=== PATIENT | male | born 1985 | race Caucasian/White ===

== ENCOUNTER 2020-07-16 15:01 | Emergency (ER) | payer SELFPAY ==
[2020-07-16 15:11] VITALS: BP 116/72; PULSE 64; RESP 18; TEMP 36.9; O2SAT 97; BMI 28.4
--- NOTE | 2020-07-16 15:28 | XR_ITS ---
WS: [id number] Exam: XR chest 1V portable [id number] Date/Time of Exam: 07/16/2020 3:31 PM Reason For Exam: chest pain Comparison 04/21/2018. Findings: The lungs are clear and fully expanded. Costophrenic angles are sharp. No infiltrates. Bronchovascula r relief appears normal. Cardiac silhouette is unremarkable. Bony elements are intact. XR/XR chest 1V portable [id number] IMPRESSION: Unremarkable chest radiograph.
[2020-07-16 15:56] VITALS: RESP 12
--- NOTE | 2020-07-16 16:00 | PC.PHAR ---
pt states he takes care of his own medications-pt states he takes no rx prescription medications-pt states he only takes ibuprofen prn
[2020-07-16 16:13] VITALS: RESP 12
--- NOTE | 2020-07-16 16:15 | W.ED.CHESTPA ---
HPI - Chest Pain General: Chief Complaint: Chest Pain Stated Complaint: chest pains Time Seen by Provider: 07/16/20 16:04 Source: patient Mode of arrival: ambulatory Limitations: no limitations History of Present Illness: HPI narrative: Patient is a 34-year-old male who presents to ED today with a complaint of left-sided chest pain. Patient tells me he began noticing the chest pain around 7 AM this morning after taking a drink of water while at work. He states chest pain has waxed and waned throughout the day. He states he will have periods where he is pain-free. He states when pain does come on it will last anywhere from a couple of seconds to 5-10 minutes. He feels like pain was worse when he was eating lunch. He was also walking at work and noticed worsening pain then. He currently is not having pain. He denies any radicular symptoms. Denies abdominal pain. No nausea or vomiting. He denies feeling short of breath or difficulty breathing. He has no painful or difficulty swallowing. No recent illness. No fevers. No cardiac or pulmonary history. No previous history of exercise intolerance. MD complaint: chest pain Onset (ago): hour(s) Timing of current episode: episodic Prior episodes: No Onset: during rest Pain location: left chest Pain radiation: none Quality: sharp Relieving factors: nothing Exacerbating factors: other (swallowing, walking) Associated symptoms: Deny abdominal pain, dyspnea, fever(s), nausea, palpitations, syncope or vomiting Treatment prior to arrival: none Risk Factors: Coronary artery disease risk factors: none Thoracic aortic dissection risk factors: none Review of Systems Const: Denies: fever(s), chills, body aches, change in appetite, change in weight, fatigue or malaise Eyes: Denies: change in vision, blurry vision, blind spots, photophobia or seeing flashes ENMT: Denies: throat pain or odynophagia Card: Reports: chest pain; Denies: palpitations, irregular heart rhythm, edema, swelling of feet/ankles, lightheadedness, syncope, pre-syncope, dyspnea on exertion, orthopnea, leg pain with exertion or acrocyanosis Resp: Denies: dyspnea, productive cough or pain on inspiration GI: Denies: abdominal pain, nausea, vomiting, heartburn or diarrhea : Denies: flank pain, difficulty urinating or dysuria Musc: Denies: neck pain, back pain or joint pain Skin/Breast: Denies: rash Neuro: Denies: headache(s), numbness in extremities, weakness in extremities, sensory changes or dizziness Physical Exam Const: COMMON NORMALS: no acute distress, average body habitus, patient oriented x3, no limitations, healthy appearing, alert and well nourished HENMT: COMMON NORMALS: normocephalic and atraumatic HEAD & SCALP: normocephalic and atraumatic Chest: COMMONS NORMALS: normal inspection of the chest and normal palpation of entire chest wall Resp: COMMON NORMALS: normal respiratory effort and clear to auscultation bilaterally AUSCULTATION: clear to auscultation bilaterally Cardio: COMMON NORMALS: regular rate and regular rhythm RATE: regular rate RHYTHM: regular rhythm GI: COMMON NORMALS: Normal to inspection, nondistended, normoactive bowel sounds present, Soft to palpation, non-tender, No hepatosplenomegaly present and no masses PALPATION: Yes Soft to palpation and Yes No hepatosplenomegaly present : COMMON NORMALS: Yes no CVA tenderness BLADDER/KIDNEY EXAM: Yes no CVA tenderness Back/Pelvis: COMMON NORMALS: no CVA tenderness, thoracic and lumbar spine normal to inspection, no thoracic nor lumbar tenderness and thoraco-lumbar ROM normal Extremity: GENERAL: Yes normal exam except as noted Neuro: YAS COMA SCALE: document GCS findings Thompson coma scale eye opening: Spontaneous Yas coma scale verbal response: Orientated Thompson coma scale motor response: Obey commands Yas coma scale total score: 15 COMMON NORMALS: patient oriented x3 SENSORIUM/ORIENTATION: Yes alert Skin: COMMON NORMALS: no rashes or lesions noted GENERAL SKIN EXAM: no rashes or lesions noted Course Vital Signs: Vital signs: Vital Signs Temperature 98.4 F 07/16/20 15:11 Pulse Rate 64 07/16/20 15:11 Respiratory Rate 12 07/16/20 17:10 Blood Pressure 116/72 07/16/20 15:11 Pulse Oximetry 97 07/16/20 15:11 MDM - Chest Pain MDM Narrative: Medical decision making narrative: Pts blood work including trop were benign. Vitals stable. CXR normal. EKG with early repolarization but otherwise normal. Recommend follow up with PCP if symptoms persist past 2-3 days. Return to ED precautions given. Lab Data: Labs: Lab Results 07/16/20 07/16/20 07/16/20 Range/Units 16:20 16:20 16:20 WBC 7.5 (4.0-10.0) 10^3/ uL RBC 4.72 (4.1-5.3) 10^6/u L Hgb 14.4 (11.7-16.6) g/dL Hct 42.8 (42.0-52.0) % MCV 90.7 (80-94) fL MCH 30.5 (28.0-34.0) pg MCHC 33.6 (30.0-36.0) g/dL RDW 12.1 (12.1-15.1) % Plt Count 194 (130-400) 10^3/c mm MPV 11.4 H (7.4-10.4) fL Neut % (Auto) 62.3 % Lymph % (Auto) 28.9 % [place] % (Auto) 6.4 % Eos % (Auto) 1.6 % Baso % (Auto) 0.4 % Neut # (Auto) 4.67 (1.8-7.7) 10^3/u L Lymph # (Auto) 2.2 (0.8-4.8) 10^3/u L [place] # (Auto) 0.5 (0.2-0.9) 10^3/u L Eos # (Auto) 0.1 (0.0-0.8) 10^3/u L Baso # (Auto) 0.0 (0.0-0.1) 10^3/u L Nucleated RBC % (a uto) 0 % Nucleated RBCs # 0.0 /100WBC Sodium 140 (136-145) mmol/L Potassium 4.3 (3.5-5.1) mmol/L Chloride 106 (98-107) mmol/L Carbon Dioxide 25 (22-29) mmol/L Anion Gap 13.3 (5-19) BUN 17 (6-20) mg/dL Creatinine 0.9 (0.7-1.2) mg/dL GFR Calculation 96.0 (90-130) mL/min Glucose 90 (65-115) mg/dL Calculated Osmolal ity 291 (285-295) mOsm/k g Calcium 8.6 (8.5-10.5) mg/dL Total Bilirubin 0.2 (0.15-1.2) mg/dL AST 26 (0-40) U/L ALT 16 (0-41) U/L Alkaline Phosphata se 94 (40-130) IU/L Troponin T Baselin e 6 (0-15) ng/L Total Protein 6.4 L (6.6-8.7) g/dL Albumin 4.4 (3.5-5.2) g/dL Globulin 2.0 (1.3-4.6) g/dL Imaging Data^: CXR: Radiologist's impression: [address] [address] XRay Report Signed Patient: Nick Montoya Unit #: [id number] : 1985 Age/Sex: 34 / M ADM Date: 07/16/20 Loc: ER Room/Bed: Attending Dr: Ordering Provider/Ordering MD: Stephanie Reyez Date of Service: 07/16/20 Procedure(s): XR chest 1V portable [id number] Accession Number(s): [id number] Report Number: [id number] WS: [id number] Exam: XR chest 1V portable [id number] Date/Time of Exam: 07/16/2020 3:31 PM Reason For Exam: chest pain Comparison 04/21/2018. Findings: The lungs are clear and fully expanded. Costophrenic angles are sharp. No infiltrates. Bronchovascular relief appears normal. Cardiac silhouette is unremarkable. Bony elements are intact. XR/XR chest 1V portable [id number] IMPRESSION: Unremarkable chest radiograph. Dictated By: Wang Michel DO Signed By: Wang Michel DO Signed Date/Time: 07/16/20 1555 DD/ 1555 EKG Data^: EKG 1: EKG interpretation date: 07/16/20 EKG interpretation time: 15:22 Interpretation: Sinus rhythm Rate 64 Early repolarization Reviewed with Dr. Schneider Discharge Plan Discharge Patient Disposition: Home Clinical Impression: Non-cardiac chest pain Condition: Stable Prescriptions: No Action ibuprofen 200 mg Tablet 400 mg PO PRN RF: 0 Discharge Orders: Discharge ED (Routine); Ordered 07/16/20 Ordered By: Stephanie Reyez Patient Instructions: Chest Pain (ED) Coding Level of Care Code ED Ball Machine Operator for Chg Fwd Exam Comprehensive
[2020-07-16 16:31] LABS: Basophils % 0.4 %; Eosinophils # 0.1 10^3/uL (0.0-0.8); Eosinophils % 1.6 %; Hematocrit 42.8 % (42.0-52.0); Hemoglobin 14.4 g/dL (11.7-16.6); Lymphocytes # 2.2 10^3/uL (0.8-4.8); Lymphocytes % 28.9 %; Mean Corpuscular HGB Conc 33.6 g/dL (30.0-36.0); Mean Corpuscular Hemoglobin 30.5 pg (28.0-34.0); Mean Corpuscular Volume 90.7 fL (80-94); Mean Platelet Volume 11.4 fL (7.4-10.4); Monocytes # 0.5 10^3/uL (0.2-0.9); Monocytes % 6.4 %; Neutrophils # 4.67 10^3/uL (1.8-7.7); Neutrophils % 62.3 %; Nucleated Red Blood Cells % 0 %; Platelet Count 194 10^3/cmm (130-400); Red Blood Count 4.72 10^6/uL (4.1-5.3); Red Cell Distribution Width 12.1 % (12.1-15.1); White Blood Count 7.5 10^3/uL (4.0-10.0)
[2020-07-16 16:47] LABS: Troponin(5th) Baseline 6 ng/L (0-15)
[2020-07-16 16:50] LABS: Alanine Aminotransferase 16 U/L (0-41); Albumin Level 4.4 g/dL (3.5-5.2); Alkaline Phosphatase 94 IU/L (40-130); Anion Gap 13.3 (5-19); Aspartate Amino Transferase 26 U/L (0-40); Blood Urea Nitrogen 17 mg/dL (6-20); Calcium 8.6 mg/dL (8.5-10.5); Carbon Dioxide 25 mmol/L (22-29); Chloride 106 mmol/L (98-107); Creatinine Clr Calc Pharmacy 129.1831; Glucose 90 mg/dL (65-115); Osmolality Calculated 291 mOsm/kg (285-295); Potassium 4.3 mmol/L (3.5-5.1); Sodium 140 mmol/L (136-145); Total Bilirubin 0.2 mg/dL (0.15-1.2); Total Protein 6.4 g/dL (6.6-8.7)
[2020-07-16 17:10] VITALS: RESP 12
--- NOTE | 2020-07-16 17:28 | ECG_ITS ---
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 Measurements Intervals Wallace Rate: 64 P: 72 HI: 178 QRS: 88 QRSD: 109 T: 60 QT: 362 QTc: 374 Interpretive Statements SINUS RHYTHM EARLY REPOLARIZATION [ST ELEVATION WITH NORMALLY INFLECTED T WAVE] Compared to ECG 04/21/2018 19:55:43 No significant changes Electronically Signed On 07-16-2020 16:19:29 CDT by Ed Barth M.D. [email or web address]
== END 2020-07-16 17:11 | disposition home or self-care (01) ==
PROVIDERS: Emergency Provider Physician Assistant
DX: R07.89 Other chest pain (principal)
CPT/HCPCS: 71045; 80053; 84484; 85025; 93005; 99283

== ENCOUNTER 2020-11-26 13:00 | Emergency (ER) | payer SELFPAY ==
[2020-11-26 13:07] VITALS: BP 112/72; PULSE 77; RESP 16; TEMP 36.6; O2SAT 99; BMI 26.5
--- NOTE | 2020-11-26 13:30 | ED_ITS ---
Documented by User: SAMANTHA Ward 11/26/20 15:46 HPI - Abdominal Pain General: Chief Complaint: Abdominal Pain Stated Complaint: LOW ABD PAIN, BLOOD CLOTS IN STOOL Time Seen by Provider: 11/26/20 13:16 History of Present Illness: HPI narrative: Patient is a 35-year-old male comes to the ED with abdominal pain. Patient says this morning he woke up with pain in his lower abdomen. Pain at that time was rated an 8 out of 10. He then went and had a bowel movement which she described as normal, but he noticed that there was some backs of red blood in the stool and also when he wiped. Says his abdominal pain decreased after having the bowel movement. Here in the ED he rates his pain at 2 out of 10. He states he has never had any symptoms like this before. Denies any fever, chills, chest pain, shortness of breath, nausea /vomiting, constipation, diarrhea, dysuria or hematuria. Associated Symptoms: Reports hematochezia; Denies chills, constipation, diarrhea, dysuria, fever(s), hematuria, nausea and vomiting Review of Systems Const: Denies: fever(s), chills or fatigue Eyes: Denies: change in vision or eye discomfort ENMT: Denies: throat pain, odynophagia, nasal discharge or nasal congestion Card: Denies: chest pain, palpitations, edema, swelling of feet/ankles, dysp francisco on exertion or orthopnea Resp: Denies: dyspnea, productive cough or non-productive cough GI: Reports: abdominal pain and hematochezia; Denies: nausea, vomiting, diarrhea or constipation : Denies: flank pain, difficulty urinating, dysuria or hematuria Musc: Denies: neck pain, back pain or extremity swelling Skin/Breast: Denies: rash or new lesions Neuro: Denies: headache(s), numbness in extremities or weakness in extremities Physical Exam Const: COMMON NORMALS: no acute distress, patient oriented x3, healthy appearing and alert GENERAL APPEARANCE: cooperative and comfortable HENMT: COMMON NORMALS: normocephalic HEAD & SCALP: normocephalic MOUTH: Normal oral and palatal mucosa present THROAT: posterior oropharynx normal and uvula midline Neck/C-Spine: COMMON NORMALS: supple GENERAL: Yes normal visual inspection Resp: COMMON NORMALS: normal respiratory effort, No retractions, No use of accessory muscles and clear to auscultation bilaterally AUSCULTATION: clear to auscultation bilaterally Cardio: COMMON NORMALS: regular rate, regular rhythm, S1 normal heart sound present, S2 normal heart sound present, No gallops present (Cardio), No clicks present (Cardio), No murmurs present (Cardio) and Peripheral pulses 2+ throughout RATE: regular rate RHYTHM: regular rhythm HEART SOUNDS: S1 normal heart sound present and S2 normal heart sound present PERIPHERAL PULSES: Peripheral pulses 2+ throughout GI: COMMON NORMALS: Normal to inspection, nondistended, normoactive bowel sounds present, Soft to palpation and no masses PALPATION: Yes Soft to palpation and Yes Tenderness to palpation present (GI) Details: LLQ and RLQ RECTAL EXAM: Yes visual inspection normal, Yes normal sphincter tone, Yes heme negative stool, No hemorrhoids and No Anal fissure(s) present : COMMON NORMALS: Yes no CVA tenderness BLADDER/KIDNEY EXAM: Yes no CVA tenderness Back/Pelvis: COMMON NORMALS: no CVA tenderness Extremity: COMMON NORMALS: normal to inspection Neuro: COMMON NORMALS: patient oriented x3 SENSORIUM/ORIENTATION: Yes alert GAIT: Yes Normal gait present Skin: GENERAL SKIN EXAM: dry skin Procedures Stool Hemoccult Procedural Steps Taken: stool placed in appropriate test area, developer placed on stool and control areas and controls appropriately positive and negative Hemoccult result: negative Additional Comments: Digital rectal exam performed to obtain sample. Course Vital Signs: Vital signs: Vital Signs Temperature 97.9 F 11/26/20 13:07 Pulse Rate 68 11/26/20 15:40 Respiratory Rate 16 11/26/20 15:40 Blood Pressure 111/79 11/26/20 15:40 Pulse Oximetry 98 11/26/20 15:40 MDM - Abdominal Pain MDM Narrative: Medical decision making narrative: Patient is a 35-year-old male comes to the ED with lower abdominal pain. He also reports some red blood in his stool. Exam shows a happy and healthy 35-year-old male in no acute distress or pain. Mild palpable generalized lower abdominal pain on right and left side. Vitals are stable. Labs are unremarkable. Digital rectal exam was performed and findings were benign. Stool Hemoccult test was negative. CT of abdomen pelvis showed inflammation of the descending and sigmoid colon, suggestive of colitis. Patient diagnosed with colitis and discharged home with a prescription for ibuprofen for pain, Cipro, Flagyl and Zofran. Return to ED precautions given. Follow-up with PCP in 7 to 10 days for reevaluation. Patient understood and agreed with plan. Lab Data: Attestation: I reviewed the patient's lab results. Labs: Lab Results 11/26/20 11/26/20 11/26/20 13:30 13:30 14:50 WBC 6.9 10^3/uL 10^3/ uL (4.0-10.0) RBC 4.78 10^6/uL 10^6 /uL (4.1-5.3) Hgb 14.7 g/dL g/dL (11.7-16.6) Hct 43.6 % % (42.0-52.0) MCV 91.2 fl fl (80-94) MCH 30.8 pg pg (28.0-34.0) MCHC 33.7 g/dL g/dL (30.0-36.0) RDW 12.3 % % (12.1-15.1) Plt Count 185 10^3/cmm 10^3 /cmm (130-400) MPV 11.8 fL H fL (7.4-10.4) Neut % (Auto) 57.1 % % Lymph % (Auto) 34.1 % % [place] % (Auto) 7.0 % % Eos % (Auto) 1.3 % % Baso % (Auto) 0.4 % % Neut # (Auto) 3.91 10^3/uL 10^3 /uL (1.8-7.7) Lymph # (Auto) 2.3 10^3/uL 10^3/ uL (0.8-4.8) [place] # (Auto) 0.5 10^3/uL 10^3/ uL (0.2-0.9) Eos # (Auto) 0.1 10^3/uL 10^3/ uL (0.0-0.8) Baso # (Auto) 0.0 10^3/uL 10^3/ uL (0.0-0.1) Nucleated RBC % (a uto) 0 % % Nucleated RBCs # 0.0 /100WBC /100W BC Sodium 138 mmol/L mmol/L (136-145) Potassium 3.9 mmol/L mmol/L (3.5-5.1) Chloride 105 mmol/L mmol/L (98-107) Carbon Dioxide 23 mmol/L mmol/L (22-29) Anion Gap 13.9 (5-19) BUN 16 mg/dL mg/dL (6-20) Creatinine 0.8 mg/dL mg/dL (0.7-1.2) GFR Calculation 109.4 mL/min mL/m in (90-130) Glucose 99 mg/dL mg/dL (65-115) Calculated Osmolal ity 287 mOsm/kg mOsm/ kg (285-295) Calcium 8.6 mg/dL mg/dL (8.5-10.5) Total Bilirubin 0.2 mg/dL mg/dL (0.15-1.2) AST 15 U/L U/L (0-40) ALT 14 U/L U/L (0-41) Alkaline Phosphata se 97 IU/L IU/L (40-130) Total Protein 6.2 g/dL L g/dL (6.6-8.7) Albumin 4.3 g/dL g/dL (3.5-5.2) Globulin 1.9 g/dL g/dL (1.3-4.6) Lipase 44 U/L U/L (13-60) Urine Color Yellow (Yellow) Urine Appearance Clear (CLEAR) Urine pH 6.5 (5-7) Ur Specific Gravit y 1.015 (1.005-1.030) Urine Protein Neg (Negative) Urine Glucose (UA) Norm (Normal) Urine Ketones Negative (Negative) Urine Blood Neg (Negative) Urine Nitrate Negative (Negative) Urine Bilirubin Neg (Negative) Urine Urobilinogen Norm mg/dL mg/dL (Negative) Ur Leukocyte Juliann ase Negative (Negative) Imaging Data ^: CT Abd/Pel: Attestation: I personally reviewed and interpreted this imaging study as follows: Radiologist's impression: [address] [address] [address] Scan Report Signed Patient: Nick Montoya Unit #: [id number] : 1985 Age/Sex: 35 / M ADM Date: 11/26/20 Loc: ER Room/Bed: Attending Dr: Ordering Provider/Ordering MD: Nick Wilkes Date of Service: 11/26/20 Procedure(s): CT abdomen pelvis w con* [id number] Accession Number(s): [id number] Report Number: [id number] WS: [id number] CT ABDOMEN AND PELVIS WITH CONTRAST HISTORY: lower abdominal pain, red blood in stool TECHNIQUE: Imaging performed of the abdomen and pelvis with IV contrast. Single phase imaging of the abdomen. Coronal and sagittal reformats are submitted. All CT scans at [facility] use at least one of these dose optimization techniques: automated exposure control; mA and/or kV adjustment per patient size (includes targeted exams where dose is matched to clinical indication); or iterative reconstruction. IV CONTRAST: Omnipaque 300; 95 mL IV. Oral contrast: No DLP: 1467.0 mGy.cm COMPARISON: None available. Lower thorax: Lung bases are clear. Heart is normal size. No hiatal hernia. Liver/biliary system: Normal size with no intrahepatic dilatation. Gallbladder: Mildly contracted. Otherwise negative. Pancreas: Normal size pancreas and pancreatic duct. No adjacent inflammation. Spleen: Normal size spleen. No mass or infarct. Adrenal glands: Normal. Right kidney: Normal. Left kidney: Normal. Aorta: Normal. Lymphadenopathy: None. Free fluid: None. GI tract: Normal. Mild fecal retention throughout the colon. No obstruction. There is moderate circumferential thickening of the descending and sigmoid mucosa. Mild inflammation is noted along the proximal wall thickening within the descending colon. There are a few scattered sigmoid diverticula. Abdominal wall: Unremarkable abdominal wall. No hernia. Pelvis: No free fluid or adenopathy within the pelvis. Bones: Unremarkable. CT/CT abdomen pelvis w con* [id number] IMPRESSION: 1. Moderate circumferential mucosal thickening involving a long segment portion of the descending and sigmoid colon. There are a few scattered diverticula but this is more likely colitis. No abscess or free fluid. 2. Mildly contracted gallbladder. 3. Normal appendix. Dictated By: Cathy Tarango DO Signed By: Cathy Tarango DO Signed Date/Time: 11/26/20 1450 DD/ 1445 Discharge Plan Discharge Patient Disposition: Home Clinical Impression: Colitis Condition: Stable Prescriptions: New ciprofloxacin HCl 500 mg tablet 500 mg PO BID 7 Days Qty: 14 RF: 0 metronidazole 500 mg tablet 500 mg PO Q8H 7 Days Qty: 21 RF: 0 ondansetron 4 mg tablet,disintegrating 4 mg PO Q8H PRN (Reason: nausea and vomiting) Qty: 12 RF: 0 ibuprofen 800 mg tablet 800 mg PO Q8H PRN (Reason: pain) Qty: 20 RF: 0 No Action ibuprofen 200 mg Tablet 400 mg PO Q8H PRN (Reason: Pain) RF: 0 Discharge Orders: Discharge ED (Routine); Ordered 11/26/20 Ordered By: Nick Wilkes Discharge Diet: Regular Discharge Activity: Increase activity as tolerated Patient Instructions: Colitis (ED) Activity Restrictions/Additional Instructions: Follow-up with medical provider as directed in 7-10 days. Take medications as prescribed. Return to the ER or your medical provider if condition worsens. Please read and understand discharge instructions. Thank you for choosing [facility] for your healthcare needs today. Please realize this is an emergency room and that we are providing you with a medical screening exam and this may not be complete and all inclusive of all the testing and or work up that you may need to determine your ailment or severity of your illness. It is very important that you follow up as instructed or that you return to the Emergency Department should you have concerns or if your condition changes or worsens in any way. Stand Alone Forms: Work/School Release Coding Level of Care Code ED Group Dynamics Instructor for Chg Fwd Exam Comprehensive Documented by User: Jamison Patel MD 11/29/20 16:09 HPI - Abdominal Pain General: Chief Complaint: Abdominal Pain Stated Complaint: LOW ABD PAIN, BLOOD CLOTS IN STOOL Time Seen by Provider: 11/26/20 13:16 Course Vital Signs: Vital signs: Vital Signs Temperature 97.9 F 11/26/20 13:07 Pulse Rate 68 11/26/20 15:40 Respiratory Rate 16 11/26/20 15:40 Blood Pressure 111/79 11/26/20 15:40 Pulse Oximetry 98 11/26/20 15:40 MDM - Abdominal Pain MDM Narrative: Medical decision making narrative: Patient discussed with SAMANTHA Ward. Labs and imaging reviewed. Patient well-appearing with stable vital signs. Discharge appropriate with PCP follow-up. Jamison Patel MD Emergency Medicine Lab Data: Labs: Lab Results 11/26/20 11/26/20 11/26/20 13:30 13:30 14:50 WBC 6.9 10^3/uL 10^3/ uL (4.0-10.0) RBC 4.78 10^6/uL 10^6 /uL (4.1-5.3) Hgb 14.7 g/dL g/dL (11.7-16.6) Hct 43.6 % % (42.0-52.0) MCV 91.2 fl fl (80-94) MCH 30.8 pg pg (28.0-34.0) MCHC 33.7 g/dL g/dL (30.0-36.0) RDW 12.3 % % (12.1-15.1) Plt Count 185 10^3/cmm 10^3 /cmm (130-400) MPV 11.8 fL H fL (7.4-10.4) Neut % (Auto) 57.1 % % Lymph % (Auto) 34.1 % % [place] % (Auto) 7.0 % % Eos % (Auto) 1.3 % % Baso % (Auto) 0.4 % % Neut # (Auto) 3.91 10^3/uL 10^3 /uL (1.8-7.7) Lymph # (Auto) 2.3 10^3/uL 10^3/ uL (0.8-4.8) [place] # (Auto) 0.5 10^3/uL 10^3/ uL (0.2-0.9) Eos # (Auto) 0.1 10^3/uL 10^3/ uL (0.0-0.8) Baso # (Auto) 0.0 10^3/uL 10^3/ uL (0.0-0.1) Nucleated RBC % (a uto) 0 % % Nucleated RBCs # 0.0 /100WBC /100W BC Sodium 138 mmol/L mmol/L (136-145) Potassium 3.9 mmol/L mmol/L (3.5-5.1) Chloride 105 mmol/L mmol/L (98-107) Carbon Dioxide 23 mmol/L mmol/L (22-29) Anion Gap 13.9 (5-19) BUN 16 mg/dL mg/dL (6-20) Creatinine 0.8 mg/dL mg/dL (0.7-1.2) GFR Calculation 109.4 mL/min mL/m in (90-130) Glucose 99 mg/dL mg/dL (65-115) Calculated Osmolal ity 287 mOsm/kg mOsm/ kg (285-295) Calcium 8.6 mg/dL mg/dL (8.5-10.5) Total Bilirubin 0.2 mg/dL mg/dL (0.15-1.2) AST 15 U/L U/L (0-40) ALT 14 U/L U/L (0-41) Alkaline Phosphata se 97 IU/L IU/L (40-130) Total Protein 6.2 g/dL L g/dL (6.6-8.7) Albumin 4.3 g/dL g/dL (3.5-5.2) Globulin 1.9 g/dL g/dL (1.3-4.6) Lipase 44 U/L U/L (13-60) Urine Color Yellow (Yellow) Urine Appearance Clear (CLEAR) Urine pH 6.5 (5-7) Ur Specific Gravit y 1.015 (1.005-1.030) Urine Protein Neg (Negative) Urine Glucose (UA) Norm (Normal) Urine Ketones Negative (Negative) Urine Blood Neg (Negative) Urine Nitrate Negative (Negative) Urine Bilirubin Neg (Negative) Urine Urobilinogen Norm mg/dL mg/dL (Negative) Ur Leukocyte Juliann ase Negative (Negative) Discharge Plan Discharge Patient Disposition: Home Clinical Impression: Colitis Condition: Stable Prescriptions: New ciprofloxacin HCl 500 mg tablet 500 mg PO BID 7 Days Qty: 14 RF: 0 metronidazole 500 mg tablet 500 mg PO Q8H 7 Days Qty: 21 RF: 0 ondansetron 4 mg tablet,disintegrating 4 mg PO Q8H PRN (Reason: nausea and vomiting) Qty: 12 RF: 0 ibuprofen 800 mg tablet 800 mg PO Q8H PRN (Reason: pain) Qty: 20 RF: 0 No Action ibuprofen 200 mg Tablet 400 mg PO Q8H PRN (Reason: Pain) RF: 0 Discharge Orders: Discharge ED (Routine); Ordered 11/26/20 Ordered By: Nick Wilkes Discharge Diet: Regular Discharge Activity: Increase activity as tolerated Patient Instructions: Colitis (ED) Activity Restrictions/Additional Instructions: Follow-up with medical provider as directed in 7-10 days. Take medications as prescribed. Return to the ER or your medical provider if condition worsens. Please read and understand discharge instructions. Thank you for choosing [facility] for your healthcare needs today. Please realize this is an emergency room and that we are providing you with a medical screening exam and this may not be complete and all inclusive of all the testing and or work up that you may need to determine your ailment or severity of your illness. It is very important that you follow up as instructed or that you return to the Emergency Department should you have concerns or if your condition changes or worsens in any way. Stand Alone Forms: Work/School Release Coding Level of Care Code ED Group Dynamics Instructor for Matt Fwcarin Exam Comprehensive
--- NOTE | 2020-11-26 13:41 | CT_ITS ---
WS: [id number] CT ABDOMEN AND PELVIS WITH CONTRAST HISTORY: lower abdominal pain, red blood in stool TECHNIQUE: Imaging performed of the abdomen and pelvis with IV contrast. Single phase imaging of the abdomen. Coronal and sagittal reformats are submitted. All CT scans at [facility] use at [address] one of these dose optimization techniques: automated exposure control; mA and/or kV adjustment per patient size (includes targeted exams where dose is matched to clinical indication); or iterative re construction. IV CONTRAST: Omnipaque 300; 95 mL IV. Oral contrast: No DLP: 1467.0 mGy.cm COMPARISON: None available. Lower thorax: Lung bases are clear. Heart is normal size. No hiatal hernia. Liver/biliary system: Normal size with no intrahepatic dilatation. Gallbladder: Mildly contracted. Otherwise negative. Pancreas: Normal size pancreas and pancreatic duct. No adjacent inflammation. Spleen: Normal size spleen. No mass or infarct. Adrenal glands: Normal. Right kidney: Normal. Left kidney: Normal. Aorta: Normal. Lymphadenopathy: None. Free fluid: None. GI tract: Normal. Mild fecal retention throughout the colon. No obstruction. There is moderate circum ferential thickening of the descending and sigmoid mucosa. Mild inflammation is noted along the proxi mal wall thickening within the descending colon. There are a few scattered sigmoid diverticula. Abdominal wall: Unremarkable abdominal wall. No hernia. Pelvis: No free fluid or adenopathy within the pelvis. Bones: Unremarkable. CT/CT abdomen pelvis w con* [id number] IMPRESSION: 1. Moderate circumferential mucosal thickening involving a long segment portio n of the descending and sigmoid colon. There are a few scattered diverticula bu t this is more likely colitis. No abscess or free fluid. 2. Mildly contracted gallbladder. 3. Normal appendix.
[2020-11-26 13:45] LABS: Basophils % 0.4 %; Eosinophils # 0.1 10^3/uL (0.0-0.8); Eosinophils % 1.3 %; Hematocrit 43.6 % (42.0-52.0); Hemoglobin 14.7 g/dL (11.7-16.6); Lymphocytes # 2.3 10^3/uL (0.8-4.8); Lymphocytes % 34.1 %; Mean Corpuscular HGB Conc 33.7 g/dL (30.0-36.0); Mean Corpuscular Hemoglobin 30.8 pg (28.0-34.0); Mean Corpuscular Volume 91.2 fl (80-94); Mean Platelet Volume 11.8 fL (7.4-10.4); Monocytes # 0.5 10^3/uL (0.2-0.9); Neutrophils # 3.91 10^3/uL (1.8-7.7); Neutrophils % 57.1 %; Nucleated Red Blood Cells % 0 %; Platelet Count 185 10^3/cmm (130-400); Red Blood Count 4.78 10^6/uL (4.1-5.3); Red Cell Distribution Width 12.3 % (12.1-15.1); White Blood Count 6.9 10^3/uL (4.0-10.0)
[2020-11-26] MEDS: sodium chloride 0.9% 500 ML 999 ML IV (13:47)
[2020-11-26 14:17] LABS: Alanine Aminotransferase 14 U/L (0-41); Albumin Level 4.3 g/dL (3.5-5.2); Alkaline Phosphatase 97 IU/L (40-130); Anion Gap 13.9 (5-19); Aspartate Amino Transferase 15 U/L (0-40); Blood Urea Nitrogen 16 mg/dL (6-20); Calcium 8.6 mg/dL (8.5-10.5); Carbon Dioxide 23 mmol/L (22-29); Chloride 105 mmol/L (98-107); Globulin 1.9 g/dL (1.3-4.6); Glomerular Filtration Rate 109.4 mL/min (90-130); Glucose 99 mg/dL (65-115); Lipase 44 U/L (13-60); Osmolality Calculated 287 mOsm/kg (285-295); Potassium 3.9 mmol/L (3.5-5.1); Sodium 138 mmol/L (136-145); Total Bilirubin 0.2 mg/dL (0.15-1.2); Total Protein 6.2 g/dL (6.6-8.7)
[2020-11-26] MEDS: iohexol 300 mg/mL 100 mL Btl IV (14:38)
[2020-11-26 15:03] LABS: Add Urine Microscopic? NO; Charge for UA Resulting for Rev
[2020-11-26 15:23] LABS: Bilirubin Urine Neg (Negative); Blood Urine Neg (Negative); Glucose Urine UA Norm (Normal); Ketones Urine Negative (Negative); Leukocyte Esterase Urine Negative (Negative); Nitrate Urine Negative (Negative); Protein Urine Neg (Negative); Specific Gravity, Urine 1.015 (1.005-1.030); Urine Appearance Clear (CLEAR); Urine Color Yellow (Yellow); Urobilinogen Urine Norm (Negative); pH Urine 6.5 (5-7)
[2020-11-26 15:40] VITALS: BP 111/79; PULSE 68; RESP 16; O2SAT 98
== END 2020-11-26 15:43 | disposition home or self-care (01) ==
PROVIDERS: Emergency Provider Physician Assistant
DX: K52.9 Noninfective gastroenteritis and colitis, unspecified (principal)
CPT/HCPCS: 74177; 80053; 81003; 83690; 85025; 87040; 99283; J7040; Q9967

== ENCOUNTER 2020-12-19 11:24 | Emergency (ER) | payer SELFPAY ==
[2020-12-19 11:35] VITALS: BP 118/73; PULSE 69; RESP 16; TEMP 36.4; O2SAT 98; BMI 26.4
--- NOTE | 2020-12-19 11:42 | ED_ITS ---
HPI - Abdominal Pain General: Chief Complaint: Abdominal Pain Stated Complaint: N/V/D X 1 MONTH Time Seen by Provider: 12/19/20 11:42 History of Present Illness: HPI narrative: 35-year-old male presents for abdominal pain in the lower half of his abdomen. Pain has been present since November 26. The patient was evaluated in the emergency department on the and found to have a long segment of his distal colon inflamed. He was treated with antibiotics but states that he did not really improve. Patient reports prior to November 26 he was not having any problems with his bowels. Pain has been constant since then but was particularly bad today. Patient does not have any history of surgery on his belly. He has no known food allergies. He has been having diarrhea anywhere from 5-9 times per day. At times it looks like jelly . He initially saw a little bit of blood in his stool on Nov 26 but none since then. No known hx of IBD. Never had colonoscopy. Associated Symptoms: Reports change in bowel habits, GI cramping, diarrhea and nausea; Denies chills, constipation, dysuria, fever(s), hematochezia, syncope and vomiting Review of Systems General: Reports: 10 or more systems reviewed and unremarkable except in HPI and below Const: Denies: fever(s), chills or body aches Eyes: Denies: change in vision ENMT: Denies: throat pain Card: Denies: chest pain, edema or syncope Resp: Denies: dyspnea or productive cough GI: Reports: abdominal pain, nausea, diarrhea, GI cramping and change in bowel habits; Denies: vomiting, constipation, pain on defecation or hematochezia : Denies: flank pain, dysuria or urinary frequency Musc: Denies: neck pain, back pain, extremity pain or extremity swelling Skin/Breast: Denies: rash or erythema Neuro: Denies: headache(s), numbness in extremities, weakness in extremities, lack of coordination or difficulty walking Physical Exam Const: COMMON NORMALS: no limitations, alert and well nourished EXAM LIMITATIONS: no altered mental status GENERAL APPEARANCE: cooperative and well developed ORIENTATION/CONSCIOUSNESS: Yes awake; not confused HENMT: COMMON NORMALS: normocephalic, atraumatic, external ears normal and Normal external nose present HEAD & SCALP: normal to inspection, normocephalic and atraumatic FACE & SINUS: face symmetric NOSE: Normal external nose present EXTERNAL EAR: Yes external ears normal MOUTH: lip normal; no muffled voice Eye: COMMON NORMALS: EOMs intact bilaterally and conjunctivae normal GENERAL EYE: appearance normal, both eyes and all related structures CONJUNCTIVA: Yes conjunctivae normal Neck/C-Spine: COMMON NORMALS: no JVD GENERAL: Yes normal visual inspection and Yes trachea midline Resp: COMMON NORMALS: normal respiratory effort, No use of accessory muscles and clear to auscultation bilaterally EFFORT & INSPECTION: Yes able to speak in complete sentences and Yes symmetric chest movement AUSCULTATION: clear to auscultation bilaterally Cardio: COMMON NORMALS: no JVD, regular rate and regular rhythm RATE: regular rate RHYTHM: regular rhythm PERIPHERAL PULSES: radial pulses present GI: COMMON NORMALS: Soft to palpation INSPECTION: Yes normal to inspection, No abdominal wall ecchymosis, No Abdominal wall edema, No abdominal distension, No scar, No visible pulsation, No Fluid wave present and No GI erythema present PALPATION: Yes Soft to palpation, No Firmness to palpation present (GI), Yes Tenderness to palpation present (GI) Details: RLQ and other (suprapubic), Yes Guarding due to palpation present (GI) and No Rigid due to palpation PERCUSSION: no fluid wave Back/Pelvis: COMMON NORMALS: thoraco-lumbar ROM normal Extremity: COMMON NORMALS: normal to inspection GENERAL: Yes normal exam except as noted Neuro: COMMON NORMALS: moves all extremities, no focal motor deficits and no sensory deficits noted SENSORIUM/ORIENTATION: Yes alert Psych: COMMON NORMALS: mental status grossly normal, Normal thought process present, cooperative, normal affect and speech normal SPEECH: Yes normal speech THOUGHT PROCESS: Normal thought process present Skin: COMMON NORMALS: no rashes or lesions noted, turgor normal and no jaundice GENERAL SKIN EXAM: no rashes or lesions noted and turgor normal Course ED course: 1420: Unfortunately, the patient had a BM early in his ED stay before he knew we needed a sample. He has been unable to produce another sample. I consulted with Resource Director to help him establish a PCP, then we can do an outpatient order for stool sample. In the meantime, I will put him on flagyl 500mg tid Vital Signs: Vital signs: Vital Signs Temperature 97.5 F L 12/19/20 11:35 Pulse Rate 57 L 12/19/20 12:08 Respiratory Rate 16 12/19/20 12:08 Blood Pressure 130/68 12/19/20 12:08 Pulse Oximetry 96 12/19/20 12:08 MDM - Abdominal Pain MDM Narrative: Medical decision making narrative: 35 yo m with 23 days of abd pain with diarrhea. CT originally noted distal colitis but pt noted didn't respond to abx. Of note, patient was not on abx for the month prior to onset of symptoms. ddx colitis, diverticulitis, c doff. perf/abscess, appendicitis. IBD a consideration. Neoplasm less likely. Discussed ddx with pt--proceeding with CT abd/pelv, cbc, cmp, ua, crp Lab Data: Labs: Lab Results 12/19/20 12/19/20 12/19/20 12:20 12:20 13:10 WBC 6.1 10^3/uL 10^3/ uL (4.0-10.0) RBC 4.66 10^6/uL 10^6 /uL (4.1-5.3) Hgb 14.1 g/dL g/dL (11.7-16.6) Hct 42.8 % % (42.0-52.0) MCV 91.8 fl fl (80-94) MCH 30.3 pg pg (28.0-34.0) MCHC 32.9 g/dL g/dL (30.0-36.0) RDW 13.1 % % (12.1-15.1) Plt Count 202 10^3/cmm 10^3 /cmm (130-400) MPV 11.5 fL H fL (7.4-10.4) Neut % (Auto) 64.7 % % Lymph % (Auto) 23.3 % % [place] % (Auto) 10.0 % % Eos % (Auto) 1.0 % % Baso % (Auto) 0.7 % % Neut # (Auto) 3.97 10^3/uL 10^3 /uL (1.8-7.7) Lymph # (Auto) 1.4 10^3/uL 10^3/ uL (0.8-4.8) [place] # (Auto) 0.6 10^3/uL 10^3/ uL (0.2-0.9) Eos # (Auto) 0.1 10^3/uL 10^3/ uL (0.0-0.8) Baso # (Auto) 0.0 10^3/uL 10^3/ uL (0.0-0.1) Nucleated RBC % (a uto) 0 % % Nucleated RBCs # 0.0 /100WBC /100W BC Sodium Cancelled 133 mmol/L L mmol /L (136-145) Potassium Cancelled 4.1 mmol/L mmol/L (3.5-5.1) Chloride Cancelled 100 mmol/L mmol/L (98-107) Carbon Dioxide Cancelled 29 mmol/L mmol/L (22-29) Anion Gap Cancelled 8.1 (5-19) BUN Cancelled 15 mg/dL mg/dL (6-20) Creatinine Cancelled 0.9 mg/dL mg/dL (0.7-1.2) GFR Calculation Cancelled 95.5 mL/min mL/mi n (90-130) Glucose Cancelled 88 mg/dL mg/dL (65-115) Calculated Osmolal ity Cancelled 276 mOsm/kg L mOs m/kg (285-295) Calcium Cancelled 8.7 mg/dL mg/dL (8.5-10.5) Total Bilirubin Cancelled 0.2 mg/dL mg/dL (0.15-1.2) AST Cancelled 15 U/L U/L (0-40) ALT Cancelled 13 U/L U/L (0-41) Alkaline Phosphata se Cancelled 65 IU/L IU/L (40-130) C-Reactive Protein Cancelled 29.5 mg/L H mg/L (0.0-4.9) Total Protein Cancelled 5.8 g/dL L g/dL (6.6-8.7) Albumin Cancelled 3.9 g/dL g/dL (3.5-5.2) Globulin Cancelled 1.9 g/dL g/dL (1.3-4.6) Imaging Data ^: CT Abd/Pel: Radiologist's impression: Distal colitis with hyperemic lymphadenopathy and appearance similar to mild case of pseudomembranous colitis. Low suspicion for appendicitis--still air in the appendix. Discharge Plan Discharge Patient Disposition: Home Clinical Impression: Colitis Condition: Stable Prescriptions: New hydrocodone-acetaminophen 5-325 mg tablet 1 tab PO Q8H PRN (Reason: pain) 5 Days Qty: 14 RF: 0 Flagyl 500 mg tablet 500 mg PO Q8H 14 Days Qty: 42 RF: 0 No Action ondansetron 4 mg tablet,disintegrating 4 mg PO Q8H PRN (Reason: nausea and vomiting) Qty: 12 RF: 0 ibuprofen 800 mg tablet 800 mg PO Q8H PRN (Reason: pain) Qty: 20 RF: 0 Probiotic See Rx Instructions .ROUTE .COMPLEX RF: 0 Vitamin B-12 1 tab PO QAM RF: 0 Vitamin D3 1 cap PO QAM RF: 0 calcium 1 tab PO QAM RF: 0 Discharge Orders: Discharge ED (Routine); Ordered 12/19/20 Ordered By: Steven Ng Other Ambulatory Orders: Clostridioides Difficile PCR (Routine) Timeframe: 1 Day Facility: [facility] - Location: Lab - Main Lab Ordered By: Steven Ng Enteric Bacterial Panel by PCR (Routine) Timeframe: 1 Day Facility: [facility] - Location: Lab - Main Lab Ordered By: Steven Ng Discharge Diet: Advance as tolerated Discharge Activity: Resume usual activity Patient Instructions: Colitis (ED), Opioid Safety Coding Level of Care Code ED Early Childhood Educator Aide for Chg Fwd Exam Comprehensive
[2020-12-19 12:08] VITALS: BP 130/68; PULSE 57; RESP 16; O2SAT 96
--- NOTE | 2020-12-19 12:08 | CT_ITS ---
WS: [id number] CT ABDOMEN AND PELVIS WITH CONTRAST HISTORY: rlq pain, rebound TECHNIQUE: Imaging performed of the abdomen and pelvis with IV contrast. Single phase imaging of the abdomen. Coronal and sagittal reformats are submitted. All CT scans at [facility] use at [address] one of these dose optimization techniques: automated exposure control; mA and/or kV adjustment per patient size (includes targeted exams where dose is matched to clinical indication); or iterative re construction. IV CONTRAST: Omnipaque 300; 95 mL IV. Oral contrast: No DLP: 1338.37 mGy.cm COMPARISON: 11/26/2020 Lower thorax: Lung bases are clear. Heart is normal size. No hiatal hernia. Liver/biliary system: Normal size liver. There is mild periportal edema which can be seen with aggres sive hydration. Similar to the prior study. Portal vein is patent. No bile duct dilatation. Focal fat adjacent to the falciform ligament. Gallbladder: Normal. No gallstones or wall thickening. No pericholecystic fluid. Pancreas: Normal size pancreas and pancreatic duct. No adjacent inflammation. Spleen: Normal size spleen. No mass or infarct. Adrenal glands: Normal. Right kidney: Normal. Left kidney: Normal. Aorta: Normal. Lymphadenopathy: New hyperemic mesenteric and RIGHT lower quadrant lymph nodes have become more promi nent and hyperemic since the prior study now measuring up to 10 mm. Free fluid: None. GI tract: Very mild mucosal thickening throughout the entire colon. Progressed since 11/26/2020. There is also slightly more edema within the appendix but there is still air present. I do not believe thi s is acute appendicitis. No obstruction. Abdominal wall: Unremarkable abdominal wall. No hernia. Pelvis: No free fluid or adenopathy within the pelvis. Bones: Unremarkable. CT/CT abdomen pelvis w con* [id number] IMPRESSION: 1. Mild diffuse mucosal edema and thickening without obstruction involving the colon. Consider early changes of pseudomembranous colitis. The appendix also a ppears mildly edematous but there is still air in the appendix and I do not bel ieve there is acute appendicitis at this time. 2. Mesenteric lymph nodes have become more prominent and hyperemic as compared to 11/26/2020. 3. No free air or ascites. Notified Steven Ng MD at 12/19/2020 1:09 PM.
[2020-12-19 12:37] LABS: Basophils % 0.7 %; Eosinophils # 0.1 10^3/uL (0.0-0.8); Hematocrit 42.8 % (42.0-52.0); Hemoglobin 14.1 g/dL (11.7-16.6); Lymphocytes # 1.4 10^3/uL (0.8-4.8); Lymphocytes % 23.3 %; Mean Corpuscular HGB Conc 32.9 g/dL (30.0-36.0); Mean Corpuscular Hemoglobin 30.3 pg (28.0-34.0); Mean Corpuscular Volume 91.8 fl (80-94); Mean Platelet Volume 11.5 fL (7.4-10.4); Monocytes # 0.6 10^3/uL (0.2-0.9); Neutrophils # 3.97 10^3/uL (1.8-7.7); Neutrophils % 64.7 %; Nucleated Red Blood Cells % 0 %; Platelet Count 202 10^3/cmm (130-400); Red Blood Count 4.66 10^6/uL (4.1-5.3); Red Cell Distribution Width 13.1 % (12.1-15.1); White Blood Count 6.1 10^3/uL (4.0-10.0)
[2020-12-19] MEDS: iohexol 300 mg/mL 100 mL Btl IV (12:51)
[2020-12-19] MEDS: HYDROmorphone 1 mg/mL INJ 1 mL 0.5 MG IVP (13:07)
[2020-12-19] MEDS: ondansetron 2 mg/ML SDV 2 mL 4 MG IVP (13:07)
[2020-12-19 13:31] LABS: Alanine Aminotransferase 13 U/L (0-41); Albumin Level 3.9 g/dL (3.5-5.2); Alkaline Phosphatase 65 IU/L (40-130); Anion Gap 8.1 (5-19); Aspartate Amino Transferase 15 U/L (0-40); Blood Urea Nitrogen 15 mg/dL (6-20); C Reactive Protein 29.5 mg/L (0.0-4.9); Calcium 8.7 mg/dL (8.5-10.5); Carbon Dioxide 29 mmol/L (22-29); Chloride 100 mmol/L (98-107); Globulin 1.9 g/dL (1.3-4.6); Glomerular Filtration Rate 95.5 mL/min (90-130); Glucose 88 mg/dL (65-115); Osmolality Calculated 276 mOsm/kg (285-295); Potassium 4.1 mmol/L (3.5-5.1); Sodium 133 mmol/L (136-145); Total Bilirubin 0.2 mg/dL (0.15-1.2); Total Protein 5.8 g/dL (6.6-8.7)
--- NOTE | 2020-12-19 14:49 | DCPLANNER ---
manager relationship was asked to help patient get established with a primary care physician. manager relationship spoke with patient, he stated that he did not have insurance. manager relationship gave patient both of the financial aid director applications for the hospital to fill out and turn in. manager relationship also called [facility], spoke with Penny, gave clinic patients information, a follow up appointment was scheduled for Monday, December 28, 2020 at 2:[address] Rogel. manager relationship gave patient the appointment information.
[2020-12-19 14:54] VITALS: RESP 16
--- NOTE | 2021-01-10 16:20 | DCPLANNER ---
Patient had a follow up appointment scheduled for 12.28.[address] Rogel at [facility] - patient did attend appointment.
== END 2020-12-19 14:56 | disposition home or self-care (01) ==
PROVIDERS: Emergency Provider Emergency Medicine
DX: R10.30 Lower abdominal pain, unspecified (principal); K52.9 Noninfective gastroenteritis and colitis, unspecified
CPT/HCPCS: 74177; 80053; 85025; 86140; 96374; 96375; 99283; J1170; J2405; Q9967

== ENCOUNTER → 2021-01-11 08:38 | Outpatient (BNVA) | payer OTHER, SELFPAY | PROVIDERS: Referring Provider Family Medicine Adult Medicine; Visit Provider Surgery | DX: Z20.822 Contact with and (suspected) exposure to COVID-19 (principal); K52.9 Noninfective gastroenteritis and colitis, unspecified; Z87.19 Personal history of other diseases of the digestive system | CPT/HCPCS: 87635 ==

== ENCOUNTER 2021-01-16 07:17 | Day surgery (SDC) | payer SELFPAY ==
[2021-01-15 13:19] VITALS: BMI 25.8
--- NOTE | 2021-01-16 07:41 | ANES.PREANE2 ---
Pre-Anesthetic Assessment Pre-Anesthetic Assessment: Height/Weight: Height 1.78 m Weight 81.647 kg Preop Diagnosis: colitis Proposed Procedure: Operation Date: 01/16/21 09:15 Proposed Procedures p Colonoscopy 42888 Z87.19(Not Applicable) - Trenton Enrique MD Familial anesthetic complications: None Was Beta Anne taken within 24 hours: N/A Was Clonidine taken within 24 hours: N/A Last intake: > 8 hrs Social: Social History: Tobacco and No alcohol Exam: Pre-Anes Outpt Exam: alert, oriented x 3, clear to auscultation bilaterally and regular rate & rhythm Airway: MP: 1 Dentition: Other (missing) Additional comments: arias Anesthetic Plan: ASA status: 2 Anesthesia: MAC Risk of > 500 ml blood loss (7ml/kg in children): No PFSH Anesthesia PFSH: Medical History BRBPR (bright red blood per rectum) Colitis presumed infectious Non-cardiac chest pain Smoker unmotivated to quit Surgical History Hx of tonsillectomy Social History Alcohol intake: never Marital status: Number of children: 4 Number of grandchildren: 0 Current occupational status: employed Data Anesthesia Cardiac Studies: No Data to Display
[2021-01-16] MEDS: sodium chloride 0.9% 1,000 ML 30 ML IV (08:42)
--- NOTE | 2021-01-16 10:52 | PC.NURSE ---
Patient canceled for today and rescheduled to Feb 28. per Dr Enrique due to safety precautions from colitis. Song in touch with office and scheduling. They will create new account for upcoming procedure.
--- NOTE | 2021-01-16 11:48 | ANE.PACU2 ---
Inpatient post-anesthesia follow up: Airway intact: Yes Vital signs: Temperature Pulse Rate Respiratory Rate Blood Pressure Pulse Oximetry Oxygen Delivery Me thod Oxygen Flow Rate Fraction of Inspir ed Oxygen Hydration adequate: Yes Nausea and vomiting: No Pain level: 2 Mental status: Baseline
== END 2021-01-16 10:55 | disposition home or self-care (01) ==
PROVIDERS: PCP Hospitalist; Visit Provider Surgery
PROC: 0DJD8ZZ Inspection of Lower Intestinal Tract, Via Natural or Artificial Opening Endoscopic (ICD-10-PCS; CPT 45378; principal; 2021-01-16 09:15)
DX: Z87.19 Personal history of other diseases of the digestive system (principal); Z53.9 Procedure and treatment not carried out, unspecified reason
CPT/HCPCS: J7030

== ENCOUNTER → 2021-02-25 16:34 | Outpatient (BNVA) | payer OTHER, SELFPAY | PROVIDERS: PCP Family Medicine Adult Medicine; Visit Provider Surgery | DX: Z20.822 Contact with and (suspected) exposure to COVID-19 (principal) | CPT/HCPCS: 87635 ==

== ENCOUNTER → 2021-03-25 16:56 | Outpatient (BNVA) | payer OTHER, MEDICARE, SELFPAY | PROVIDERS: PCP Family Medicine Adult Medicine; Visit Provider Surgery | DX: A08.4 Viral intestinal infection, unspecified (principal) | CPT/HCPCS: 87635 ==

== ENCOUNTER 2021-03-28 06:50 | Day surgery (SDC) | payer OTHER, SELFPAY ==
[2021-03-26 13:45] VITALS: BMI 26.1
--- NOTE | 2021-03-28 07:22 | P.ANESASSM_ITS ---
Pre-Anesthetic Assessment Height/Weight: Height 1.78 m Weight 82.554 kg Preop Diagnosis: Change in bowel habits and history of colitis Operation Date: 03/28/21 08:15 Proposed Procedures p Colonoscopy 67211/z87.19(Not Applicable) - Trenton Enrique MD Familial anesthetic complications: None Was Beta Anne taken within 24 hours: N/A Was Clonidine taken within 24 hours: N/A Social Tobacco and No alcohol Exam alert, oriented x 3, clear to auscultation bilaterally and regular rate & rhythm Airway Submandibular: within normal limits Cervical ROM: within normal limits Mallampati: Class I Comments: Comments: No loose teeth Missing teeth (front upper central incisior) History/ROS No significant complaints Pulmonary None reported CV/HEM None reported None reported Hepatic None reported GI Abdominal pain Blood in stool Metabolic None reported Musc/skel None reported Neuropsych None reported Anesthetic Plan ASA status: 2 Anesthesia: Anesthesia Evaluation, General and MAC Other: I discussed with the patient risks, goals, and benefits of MAC and general anesthesia. We discussed spectrum of MAC anesthesia including conversion to g eneral as well as possibility of recall of intraoperative stimuli including discomfort/pain. Patient agrees to proceed with MAC. Medications/Allergies Home Medications Medication Instructions Recorded Confirmed Last Taken Type ibuprofen 800 mg tablet 800 mg PO Q8H PRN #20 tab 11/26/20 01/28/21 01/14/21 Rx Vitamin B-12 1 tab PO QAM 12/19/20 01/28/21 01/14/21 History Vitamin D3 1 cap PO QAM 12/19/20 01/28/21 01/14/21 History calcium 1 tab PO QAM 12/19/20 01/28/21 01/14/21 History loperamide 2 mg capsule (Imodium 2 mg PO Q6H PRN 01/04/21 01/28/21 01/14/21 History A-D) ondansetron 4 mg disintegrating 4 mg PO Q8H PRN #10 tab 01/28/21 01/28/21 Unknown Rx tablet Allergies Allergy/AdvReac Type Severity Reaction Status Date / Time No Known Allergies Allergy Verified 01/28/21 12:59 PFSH Anesthesia Medical History BRBPR (bright red blood per rectum) Colitis presumed infectious Non-cardiac chest pain Smoker unmotivated to quit Viral gastroenteritis Surgical History Hx of tonsillectomy Social History Alcohol intake: never Marital status: Number of children: 4 Number of grandchildren: 0 Current occupational status: employed Data Anesthesia Cardiac Studies: No Data to Display
--- NOTE | 2021-03-28 07:33 | P.HP_ITS ---
Same Day Surgery H&P Indication for Procedure/HPI DATE OF PROCEDURE: March 28, 2021 CHIEF COMPLAINT/INDICATIONFOR SURGICAL PROCEDURE: Abdominal pain PREOP DIAGNOSIS: Change in bowel habits and history of colitis PLANNED PROCEDURE: Operation Date: 03/28/21 08:15 Proposed Procedures p Colonoscopy 61391/z87.19(Not Applicable) - Trenton Enrique MD This is a pleasant 35 years old gentleman referred to my practice with history of bowel issues.? Patient reports that he has been having lower sided sharp abdominal pain associated with blood in stool.? For about a month or so.? He denies any sick contacts and water source is appropriate.? Gets worse with walking and gets better for unknown reason.? Patient had previous history of head trauma and had a tracheostomy before and he reports loose stools currently.? Denies history of colon cancer and inflammatory bowel disease.? Went to the emergency department back in 11/26/[address] scan of the abdomen pelvis was done that showed 1.??Moderate circumferential mucosal thickening involving a long segment portion of the descending and sigmoid colon. There are a few scattered diverticula but this is more likely colitis. No abscess or free fluid. 2.? Mildly contracted gallbladder. 3.? Normal appendix. Patient at some point was placed on antibiotics and Ambrosio visited the emergency department on 12/19/[address] of the pelvis was done that showed ?1.??Mild diffuse mucosal edema and thickening without obstruction involving the colon. Consider early changes of pseudomembranous colitis.?The?appendix also appears mildly edematous but there is still air in the appendix and I do not believe there is acute appendicitis at this time. 2.? Mesenteric lymph nodes have become more prominent and hyperemic as compared to 11/26/2020. 3.? No free air or ascites. It does not appear that the patient had undergone stool studies. In summary Patient reports history of diarrhea, bloody in nature, has been going on for quite some time.? Patient denies history of recent travels, antibiotics, change in medications, questionable source of water, no history of sick contacts, no history of thyroid disorders. ? Interim history 03/28/2021 Patient comes today for diagnostic colonoscopy ROS All systems have been reviewed negative except as per the above or per problem list Medications/Allergies* Home Medications Medication Instructions Recorded Confirmed Type Vitamin B-12 1 tab PO QAM 12/19/20 01/28/21 History Vitamin D3 1 cap PO QAM 12/19/20 01/28/21 History calcium 1 tab PO QAM 12/19/20 01/28/21 History loperamide 2 mg capsule (Imodium 2 mg PO Q6H PRN 01/04/21 01/28/21 History A-D) Allergies/Adverse Reactions Allergy/AdvReac Type Severity Reaction Status Date / Time No Known Allergies Allergy Verified 03/28/21 07:34 Pertinent History/Comorbid Conditions* Medical History (Updated 01/28/21 @ 13:43 by Pravin Rogel MD) BRBPR (bright red blood per rectum) Colitis presumed infectious Non-cardiac chest pain Smoker unmotivated to quit Viral gastroenteritis Surgical History (Updated 01/04/21 @ 16:09 by Pravin Rogel MD) Hx of tonsillectomy Social History Alcohol intake: never Marital status: Number of children: 4 Number of grandchildren: 0 Current occupational status: employed Pertinent Exam Findings alert, oriented x 3, regular rate & rhythm and procedure specific exam findings (Abdominal examination nontender nondistended soft) Recommendations Surgery/Procedure today (Colonoscopy with possible biopsy) Other Plans: Colonoscopy with possible biopsy and stool study. Plan of care; After thorough history and physical examination and reviewing the chart, plan to perform diagnostic colonoscopy. I discussed with the patient in details the risks,benefits,alternatives and indications.The risk of aspiration, bleeding, soft tissue injury, perforation of the colon and other potential concomitant complications were explained to the patient in details,also the potential need for Laproscoy/Laparotomy to repair any related complications including but not limited to colectomy and or Closotomy.The patient understood this well and did agree to proceed. Rationale was carefully and clearly discussed with the patient.Appropriate informed consent have been reviewed and signed All questions have been answered and all concerns have been addressed to patient's satisfaction. Verbal and written Instructions were given to the patient for colonoscopy prep Coding Level of Care Code Acute Rolloff Truck Driver for Matt Hilton
[2021-03-28 07:43] VITALS: BP 133/74; PULSE 60; RESP 18; TEMP 36; O2SAT 99
[2021-03-28] MEDS: sodium chloride 0.9% 1,000 ML 30 ML IV (08:04)
[2021-03-28 08:55] VITALS: BP 88/43; PULSE 69; RESP 16; TEMP 36.1; O2SAT 94
[2021-03-28 09:05] VITALS: BP 93/61; PULSE 62; RESP 16; O2SAT 94
[2021-03-28 09:22] VITALS: BP 107/83; PULSE 74; RESP 18; O2SAT 96
--- NOTE | 2021-03-28 12:50 | ANE.PACU2 ---
Inpatient post-anesthesia follow up: Airway intact: Yes Vital signs: Temperature 97.0 F Pulse Rate 74 Respiratory Rate 18 Blood Pressure 107/83 Pulse Oximetry 96 Oxygen Delivery Me thod Room Air Oxygen Flow Rate Fraction of Inspir ed Oxygen Hydration adequate: Yes Nausea and vomiting: No Pain level: 1 Mental status: Baseline
== END 2021-03-28 09:35 | disposition home or self-care (01) ==
PROVIDERS: PCP Family Medicine Adult Medicine; Visit Provider Surgery
PROC: 0DJD8ZZ Inspection of Lower Intestinal Tract, Via Natural or Artificial Opening Endoscopic (ICD-10-PCS; CPT 45378; principal; 2021-03-28 08:15)
DX: R19.4 Change in bowel habit (principal); Z87.19 Personal history of other diseases of the digestive system; F17.210 Nicotine dependence, cigarettes, uncomplicated
CPT/HCPCS: 45378; 82274; 83630; 87493; 87506; J2704; J7030

== ENCOUNTER 2021-04-16 12:41 | Emergency (ER) | payer OTHER, SELFPAY ==
[2021-04-16 12:49] VITALS: BP 115/58; PULSE 69; RESP 16; TEMP 36.4; O2SAT 98; BMI 25.1
--- NOTE | 2021-04-16 12:49 | W.ED.ABDPA2 ---
HPI - Abdominal Pain General: Chief Complaint: Abdominal Pain Stated Complaint: ABD Pain pt states has C diff Time Seen by Provider: 04/16/21 12:49 History of Present Illness: Mr. Montoya is a 35-year-old gentleman with history recently of C. difficile who presents emergency department due to abnormal pain blood in stool. He reports first having abdominal pain and cramping associated with blood in stool a few months ago. He was treated with antibiotics however symptoms worsened. He subsequently had endoscopy done with C. difficile positive culture obtained from sample. He completed a 10-day course (started 03/29) vancomycin and had improvement however over the past few days has had increased mild discomfort and then more significant aching in the epigastric region as well as scant amount of reddish stool just prior to coming in. Mild associated lightheadedness. Denies other signs of systemic illness. Course has been worsening. No other specific changes in health, exacerbating, relieving factors identified. Pertinent past history: other Onset (ago): day(s) Pain Consistency: intermittent Location: Epigastric Severity: moderate Quality: cramping and aching Context: other Review of Systems General: Reports: 10 or more systems reviewed and unremarkable except in HPI and below PFSH ED PFSH: Medical History BRBPR (bright red blood per rectum) Colitis presumed infectious Non-cardiac chest pain Smoker unmotivated to quit Viral gastroenteritis Surgical History Hx of tonsillectomy Social History Smoking and tobacco status: current every day smoker Alcohol intake: never Marital status: Number of children: 4 Number of grandchildren: 0 Current occupational status: employed Physical Exam Const: COMMON NORMALS: alert GENERAL APPEARANCE: cooperative, well developed and ill appearing (mildly) HENMT: COMMON NORMALS: normocephalic and atraumatic HEAD & SCALP: normocephalic and atraumatic Eye: COMMON NORMALS: conjunctivae normal CONJUNCTIVA: Yes conjunctivae normal SCLERA: sclerae normal Neck/C-Spine: COMMON NORMALS: supple GENERAL: Yes trachea midline Resp: COMMON NORMALS: normal respiratory effort EFFORT & INSPECTION: Yes able to speak in complete sentences Cardio: COMMON NORMALS: regular rate and regular rhythm RATE: regular rate RHYTHM: regular rhythm GI: COMMON NORMALS: Soft to palpation PALPATION: Yes Soft to palpation, Yes Tenderness to palpation present (GI), No Guarding due to palpation present (GI) and No Rigid due to palpation PERCUSSION: normal to percussion Extremity: GENERAL: Yes normal exam except as noted and No edema Neuro: COMMON NORMALS: moves all extremities SENSORIUM/ORIENTATION: Yes alert and No Orientation impaired Psych: COMMON NORMALS: mental status grossly normal and Normal thought process present THOUGHT PROCESS: Normal thought process present Course ED course: - Patient was seen and evaluated by me at bedside - Patient placed on cardiac monitors, IV access obtained - Initial evaluation notable for exam as above - Fluids and symptom treatment ordered - Labs notable for no leukocytosis, normal hemoglobin. Metabolic panel without acute derangement requiring intervention. - Imaging notable for mild right abdominal colonic constipation without evidence of colitis. - Upon serial reexamination after treatment the patient was improved. I discussed the case with Dr. Enrique who recommended repeat treatment for C. difficile and to follow-up with him. - Based on patient history, evaluation, labs, and imaging as interpreted the most likely cause of the patient's condition is C. difficile of versus other unspecified abdominal pain. - The results of ED evaluation were discussed with the patient including prescriptions and/or symptomatic cares (if applicable) including appropriate and responsible use, followup plan, and return precautions. The patient verbalized understanding and felt safe for discharge. - Patient discharged in satisfactory condition. Note: Click bubbles or prepopulated lucio in note writing are used for assistance with data collection and billing and are inherently more limited than narrative and other text portions of this note. Please use narrative for additional clinical history and defer to narrative/free test for any case of contradictory information. If information appears in only free text or click bubble it should be considered present or absent as reported. Please contact note technical publications writer for clarifications of clinical information or contradictory information. MDM is a brief summary, contradictory or erroneous seeming information should be clarified and full note should be reviewed. Vital Signs: Vital signs: Vital Signs Temperature 98.2 F 04/16/21 14:57 Pulse Rate 60 04/16/21 15:59 Respiratory Rate 16 04/16/21 15:59 Blood Pressure 119/77 04/16/21 15:59 Pulse Oximetry 95 04/16/21 15:59 MDM - Abdominal Pain Medical Decision Making 35-year-old gentleman with history of C. difficile who had improvement after completed course of treatment now presenting with abdominal pain. No significant laboratory abnormality or CT abnormality requiring acute intervention. Patient to be treated again for C. difficile and follow-up with general surgery. Medical Records I reviewed the patient's medical records. Lab Data I reviewed the patient's lab results. : 04/16/21 14:15 04/16/21 14:15 Labs/Radiology: Radiology Impressions Abdomen/Pelvis CT 04/16/21 13:37 IMPRESSION: 1. Mild right abdominal colonic constipation. 2. Chronic calcific prostatitis. Laboratory Results WBC 6.3 10^3/uL (4.0-10.0) 04/16/21 14:15 RBC 4.59 10^6/uL (4.1-5.3) 04/16/21 14:15 Hgb 13.9 g/dL (11.7-16.6) 04/16/21 14:15 Hct 41.0 % (42.0-52.0) L 04/16/21 14:15 MCV 89.3 fl (80-94) 04/16/21 14:15 MCH 30.3 pg (28.0-34.0) 04/16/21 14:15 MCHC 33.9 g/dL (30.0-36.0) 04/16/21 14:15 RDW 12.2 % (12.1-15.1) 04/16/21 14:15 Plt Count 183 10^3/cmm (130-400) 04/16/21 14:15 MPV 11.3 fL (7.4-10.4) H 04/16/21 14:15 Neut % (Auto) 57.6 % 04/16/21 14:15 Lymph % (Auto) 32.9 % 04/16/21 14:15 [place] % (Auto) 6.7 % 04/16/21 14:15 Eos % (Auto) 1.9 % 04/16/21 14:15 Baso % (Auto) 0.6 % 04/16/21 14:15 Neut # (Auto) 3.62 10^3/uL (1.8-7.7) 04/16/21 14:15 Lymph # (Auto) 2.1 10^3/uL (0.8-4.8) 04/16/21 14:15 [place] # (Auto) 0.4 10^3/uL (0.2-0.9) 04/16/21 14:15 Eos # (Auto) 0.1 10^3/uL (0.0-0.8) 04/16/21 14:15 Baso # (Auto) 0.0 10^3/uL (0.0-0.1) 04/16/21 14:15 Nucleated RBC % (auto) 0 % 04/16/21 14:15 Nucleated RBCs # 0.0 /100WBC 04/16/21 14:15 Sodium 134 mmol/L (136-145) L 04/16/21 14:15 Potassium 4.0 mmol/L (3.5-5.1) 04/16/21 14:15 Chloride 104 mmol/L (98-107) 04/16/21 14:15 Carbon Dioxide 23 mmol/L (22-29) 04/16/21 14:15 Anion Gap 11.0 (5-19) 04/16/21 14:15 BUN 15 mg/dL (6-20) 04/16/21 14:15 Creatinine 0.7 mg/dL (0.7-1.2) 04/16/21 14:15 GFR Calculation 127.6 mL/min (90-130) 04/16/21 14:15 Glucose 93 mg/dL (65-115) 04/16/21 14:15 Calculated Osmolality 279 mOsm/kg (285-295) L 04/16/21 14:15 Calcium 8.8 mg/dL (8.5-10.5) 04/16/21 14:15 Total Bilirubin 0.2 mg/dL (0.15-1.2) 04/16/21 14:15 AST 14 U/L (0-40) 04/16/21 14:15 ALT 12 U/L (0-41) 04/16/21 14:15 Alkaline Phosphatase 86 IU/L (40-130) 04/16/21 14:15 Total Protein 5.9 g/dL (6.6-8.7) L 04/16/21 14:15 Albumin 4.3 g/dL (3.5-5.2) 04/16/21 14:15 Globulin 1.6 g/dL (1.3-4.6) 04/16/21 14:15 Lipase 48 U/L (13-60) 04/16/21 14:15 Urine Color Yellow (Yellow) 04/16/21 14:50 Urine Appearance Clear (CLEAR) 04/16/21 14:50 Urine pH 6.5 (5-7) 04/16/21 14:50 Ur Specific [place] 1.010 (1.005-1.030) 04/16/21 14:50 Urine Protein Neg (Negative) 04/16/21 14:50 Urine Glucose (UA) Norm (Normal) 04/16/21 14:50 Urine Ketones Negative (Negative) 04/16/21 14:50 Urine Blood Neg (Negative) 04/16/21 14:50 Urine Nitrate Negative (Negative) 04/16/21 14:50 Urine Bilirubin Neg (Negative) 04/16/21 14:50 Urine Urobilinogen Norm mg/dL (Negative) 04/16/21 14:50 Ur Leukocyte Esterase Negative (Negative) 04/16/21 14:50 Discharge Plan Discharge Patient Disposition: Home Clinical Impression: Abdominal pain, Clostridioides difficile infection Condition: Stable Prescriptions: New vancomycin 125 mg capsule 125 mg PO Q6H 10 Days Qty: 40 0RF Discharge Orders: Discharge ED (Routine); Ordered 04/16/21 Ordered By: Jamison Patel Referrals: Pravin Rogel MD [Primary Care Provider] - Discharge Diet: Usual diet Discharge Activity: Resume usual activity Patient Instructions: C. Diff (Clostridioides Difficile) Infection (ED), Abdominal Pain (ED), Opioid Safety Activity Restrictions/Additional Instructions: Thank you for visiting the emergency department. You were seen and evaluated for abdominal pain in the context of history of C. difficile infection. The exact cause of this is unclear though may be related to recurrence of infection or incomplete eradication. You will be restarted on antibiotics. Please follow-up with Dr. Enrique at the end of your course of treatment antibiotics. Please return the emergency department for worsening symptoms or anything else that you are concerned about and feel needs emergency department evaluation. 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
--- NOTE | 2021-04-16 13:37 | CTR_ITS ---
PROCEDURE INFORMATION: Exam: CT Abdomen And Pelvis With Contrast Exam date and time: 04/16/2021 1:37 PM Age: 35 years old Clinical indication: Abdominal pain; Acute; Additional info: Abdominal pain, bloody stool, HX cdiff TECHNIQUE: Imaging protocol: Computed tomography of the abdomen and pelvis with contrast. Radiation optimization: All CT scans at this facility use at least one of these dose optimization techniques: automated exposure control; mA and/or kV adjustment per patient size (includes targeted exams where dose is matched to clinical indication); or iterative reconstruction. Contrast material: OMNI 300; Contrast volume: 95 ml; Contrast route: INTRAVENOUS (IV); COMPARISON: CT abdomen pelvis w con* [id number] 12/19/2020 12:48 PM RADIATION DOSE METRICS: Total DLP (mGy-cm): 1262.02 FINDINGS: Liver: Normal. No mass. Gallbladder and bile ducts: The gallbladder is partially contracted. No extrahepatic biliary ductal dilatation or calculus. Pancreas: Normal. No ductal dilation. Spleen: Normal. No splenomegaly. Adrenal glands: Normal. No mass. Kidneys and ureters: Normal. No hydronephrosis. Stomach and bowel: No definite colonic wall thickening. No pneumatosis identified. There is mildly increased stool noted in the ascending colon. Appendix: The vermiform appendix is normal. Intraperitoneal space: No free air. No significant fluid collection. Vasculature: Unremarkable. No abdominal aortic aneurysm. Lymph nodes: No enlarged lymph nodes. Urinary bladder: Unremarkable as visualized. Reproductive: The prostate gland demonstrates nonspecific parenchymal calcifications. Bones/joints: Unremarkable. No acute fracture. Soft tissues: Unremarkable. CT/CT abdomen pelvis w con* [id number] IMPRESSION: 1. Mild right abdominal colonic constipation. 2. Chronic calcific prostatitis.
[2021-04-16] MEDS: iohexol 300 mg/mL 100 mL Btl IV (13:57)
[2021-04-16 14:24] VITALS: RESP 15
[2021-04-16] MEDS: morphine 4 mg/mL SDV 1 mL IVP (14:24)
[2021-04-16] MEDS: ondansetron 2 mg/ML SDV 2 mL 4 MG IVP (14:24)
[2021-04-16] MEDS: sodium chloride 0.9% 1,000 ML 999 ML IV (14:25)
[2021-04-16 14:35] LABS: Basophils % 0.6 %; Eosinophils # 0.1 10^3/uL (0.0-0.8); Eosinophils % 1.9 %; Hemoglobin 13.9 g/dL (11.7-16.6); Lymphocytes # 2.1 10^3/uL (0.8-4.8); Lymphocytes % 32.9 %; Mean Corpuscular HGB Conc 33.9 g/dL (30.0-36.0); Mean Corpuscular Hemoglobin 30.3 pg (28.0-34.0); Mean Corpuscular Volume 89.3 fl (80-94); Mean Platelet Volume 11.3 fL (7.4-10.4); Monocytes # 0.4 10^3/uL (0.2-0.9); Monocytes % 6.7 %; Neutrophils # 3.62 10^3/uL (1.8-7.7); Neutrophils % 57.6 %; Nucleated Red Blood Cells % 0 %; Platelet Count 183 10^3/cmm (130-400); Red Blood Count 4.59 10^6/uL (4.1-5.3); Red Cell Distribution Width 12.2 % (12.1-15.1); White Blood Count 6.3 10^3/uL (4.0-10.0)
[2021-04-16 14:50] LABS: Alanine Aminotransferase 12 U/L (0-41); Albumin Level 4.3 g/dL (3.5-5.2); Alkaline Phosphatase 86 IU/L (40-130); Aspartate Amino Transferase 14 U/L (0-40); Blood Urea Nitrogen 15 mg/dL (6-20); Calcium 8.8 mg/dL (8.5-10.5); Carbon Dioxide 23 mmol/L (22-29); Chloride 104 mmol/L (98-107); Globulin 1.6 g/dL (1.3-4.6); Glomerular Filtration Rate 127.6 mL/min (90-130); Glucose 93 mg/dL (65-115); Lipase 48 U/L (13-60); Osmolality Calculated 279 mOsm/kg (285-295); Sodium 134 mmol/L (136-145); Total Bilirubin 0.2 mg/dL (0.15-1.2); Total Protein 5.9 g/dL (6.6-8.7)
[2021-04-16 14:57] VITALS: BP 119/74; PULSE 60; RESP 15; TEMP 36.8; O2SAT 94
[2021-04-16 15:12] LABS: Add Urine Microscopic? NO; Charge for UA Resulting for Rev
[2021-04-16 15:19] LABS: Bilirubin Urine Neg (Negative); Blood Urine Neg (Negative); Glucose Urine UA Norm (Normal); Ketones Urine Negative (Negative); Leukocyte Esterase Urine Negative (Negative); Nitrate Urine Negative (Negative); Protein Urine Neg (Negative); Urine Appearance Clear (CLEAR); Urine Color Yellow (Yellow); Urobilinogen Urine Norm (Negative); pH Urine 6.5 (5-7)
[2021-04-16 15:59] VITALS: BP 119/77; PULSE 60; RESP 16; O2SAT 95
--- NOTE | 2021-04-22 10:26 | DCPLANNER ---
Addendum entered by Erica Mendez 05/15/21 14:12: Patient had a follow up appointment scheduled with General Surgery - patient did attend appointment. Addendum entered by Erica Mendez 04/26/21 13:15: Patient has a follow up appointment scheduled for April at 3:[address] Enrique. Clinic will call patient with appointment information. Original Note: agricultural crop farm manager had message to schedule a follow up appointment for patient with general surgery. agricultural crop farm manager emailed patients information to Albertina Gale and Angelica at [facility] General Surgery / ENT clinic. Patients information will be printed and reviewed. Clinic will call patient with appointment information.
== END 2021-04-16 16:00 | disposition home or self-care (01) ==
PROVIDERS: Emergency Provider Emergency Medicine; PCP Family Medicine Adult Medicine
DX: A04.72 Enterocolitis due to Clostridium difficile, not specified as recurrent (principal); F17.210 Nicotine dependence, cigarettes, uncomplicated
CPT/HCPCS: 74177; 80053; 81003; 83690; 85025; 96361; 96374; 96375; 99284; J2270; J2405; J7030; Q9967

== ENCOUNTER 2021-04-17 21:22 | Emergency (ER) | payer OTHER, SELFPAY ==
--- NOTE | 2021-04-17 21:26 | ECG_ITS ---
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 Measurements Intervals [place] Rate: 56 P: 77 AR: 175 QRS: 95 QRSD: 118 T: 66 QT: 379 QTc: 367 Interpretive Statements SINUS BRADYCARDIA WITH SINUS ARRHYTHMIA BORDERLINE RIGHT AXIS DEVIATION [QRS AXIS > 90] MODERATE INTRAVENTRICULAR CONDUCTION DELAY [105+ ms QRS DURATION, 80+ ms Q/S IN V1/V2, NO Q AND 60+ ms R IN I/aVL/V5/V6] EARLY REPOLARIZATION [ST ELEVATION WITH NORMALLY INFLECTED T-WAVE] Compared to ECG 07/16/2020 15:22:55 Intraventricular conduction delay now present Sinus rhythm no longer present Electronically Signed On 04-18-2021 13:41:13 STRAND BUNCHER [employer]INE WIRE by Mala Piña M.D. [id number]
--- NOTE | 2021-04-17 21:26 | ED_ITS ---
HPI - Chest Pain General: Chief Complaint: Chest Pain Stated Complaint: cp Time Seen by Provider: 04/17/21 21:24 History of Present Illness: Mr. Montoya is a 35-year-old gentleman with recent history of C. difficile who presents emergency department due to chest pain. Chest pain began yesterday evening at rest. He endorses squeezing pressure in the left anterior chest without significant radiation or associated symptoms. This is recurrent and at times been persistent as long as 2 hours. Intensity at worst has been severe. Currently denies significant symptoms. Denies similar episodes in past. He does have history of tobaccoism and positive family history for early cardiac in his family. No other specific changes in health, exacerbating, relieving factors identified. Pertinent past history: other Onset (ago): hour(s) Timing of current episode: episodic Prior episodes: Yes Onset: during rest Pain location: left chest Severity: severe Quality: other (Squeezing) Relieving factors: nothing Exacerbating factors: nothing Context: recent illness Review of Systems General: Reports: 10 or more systems reviewed and unremarkable except in HPI and below PFSH ED PFSH: Medical History BRBPR (bright red blood per rectum) Colitis presumed infectious Non-cardiac chest pain Smoker unmotivated to quit Viral gastroenteritis Surgical History Hx of tonsillectomy Social History Smoking and tobacco status: current every day smoker Alcohol intake: never Marital status: Number of children: 4 Number of grandchildren: 0 Current occupational status: employed Physical Exam Const: COMMON NORMALS: alert GENERAL APPEARANCE: cooperative and well developed HENMT: COMMON NORMALS: normocephalic and atraumatic HEAD & SCALP: normocephalic and atraumatic Eye: COMMON NORMALS: conjunctivae normal CONJUNCTIVA: Yes conjunctivae normal SCLERA: sclerae normal Neck/C-Spine: COMMON NORMALS: supple GENERAL: Yes trachea midline Resp: COMMON NORMALS: normal respiratory effort and clear to auscultation ivan aterally EFFORT & INSPECTION: Yes able to speak in complete sentences AUSCULTATION: clear to auscultation bilaterally Cardio: COMMON NORMALS: regular rate and regular rhythm RATE: regular rate RHYTHM: regular rhythm GI: COMMON NORMALS: Soft to palpation PALPATION: Yes Soft to palpation and No Tenderness to palpation present (GI) PERCUSSION: normal to percussion Extremity: GENERAL: Yes normal exam except as noted and No edema Neuro: COMMON NORMALS: moves all extremities SENSORIUM/ORIENTATION: Yes alert and No Orientation impaired Psych: COMMON NORMALS: mental status grossly normal and Normal thought process present THOUGHT PROCESS: Normal thought process present Skin: COMMON NORMALS: no rashes or lesions noted GENERAL SKIN EXAM: no rashes or lesions noted Course ED course: - Patient was seen and evaluated by me at bedside - Patient placed on cardiac monitors, IV access obtained - Initial evaluation notable for exam as above - Aspirin given - Labs notable for no acute abnormality to explain the patient's symptoms. Troponin is negative with greater than 6 hours of symptom duration. - Imaging notable for no acute process on chest x-ray - Upon serial reexamination after treatment the patient was similar - Based on patient history, evaluation, labs, and imaging as interpreted the most likely cause of the patient's condition is unclear. Patient is low risk by HEART score, typically for a patient in this age group I would simply refer back to primary care provider however given the patient's history of tobaccoism and strong family history in his father of early cardiac disease and (reportedly 59 years old) the patient warrants stress test and cardiology follow-up which will be ordered. - The results of ED evaluation were discussed with the patient including prescriptions and/or symptomatic cares (if applicable) including appropriate and responsible use, followup plan, and return precautions. The patient verbalized understanding and felt safe for discharge. - Patient discharged in satisfactory condition. Note: Click bubbles or prepopulated lucio in note writing are used for assistance with data collection and billing and are inherently more limited than narrative and other text portions of this note. Please use narrative for additional clinical history and defer to narrative/free test for any case of contradictory information. If information appears in only free text or click bubble it should be considered present or absent as reported. Please contact note magazine writer for clarifications of clinical information or contradictory information. MDM is a brief summary, contradictory or erroneous seeming information should be clarified and full note should be reviewed. Vital Signs: Vital signs: Vital Signs Temperature 97.7 F 04/17/21 21:27 Pulse Rate 45 L 04/17/21 23:45 Respiratory Rate 14 04/17/21 23:45 Blood Pressure 128/81 04/17/21 23:45 Pulse Oximetry 98 04/17/21 23:45 MDM - Chest Pain Medical Decision Making 35-year-old gentleman presenting with 1 day history of squeezing left anterior chest pressure that has been intermittently present. ED evaluation negative for acute explanation of symptoms. Heart score of three. Patient does use tobacco products and does have positive family history and therefore will be referred for outpatient stress test and cardiology follow-up. Medical Records I reviewed the patient's medical records. Lab Data I reviewed the patient's lab results. : 04/17/21 22:01 04/17/21 22:01 Radiology Impressions Chest X-Ray 04/17/21 21:26 IMPRESSION: No acute findings. Laboratory Results WBC 7.1 10^3/uL (4.0-10.0) 04/17/21 22: RBC 4.85 10^6/uL (4.1-5.3) 04/17/21 22: Hgb 15.1 g/dL (11.7-16.6) 04/17/21 22:01 Hct 44.6 % (42.0-52.0) 04/17/21 22: MCV 92.0 fl (80-94) 04/17/21 22: MCH 31.1 pg (28.0-34.0) 04/17/21 22:01 MCHC 33.9 g/dL (30.0-36.0) 04/17/21 22: RDW 12.3 % (12.1-15.1) 04/17/21 22: Plt Count 192 10^3/cmm (130-400) 04/17/21 22:01 MPV 11.0 fL (7.4-10.4) H 04/17/21 22: Neut % (Auto) 67.6 % 04/17/21 22: Lymph % (Auto) 24.8 % 04/17/21 22: [place] % (Auto) 5.9 % 04/17/21 22: Eos % (Auto) 1.0 % 04/17/21 22: Baso % (Auto) 0.4 % 04/17/21 22: Neut # (Auto) 4.79 10^3/uL (1.8-7.7) 04/17/21 22:01 Lymph # (Auto) 1.8 10^3/uL (0.8-4.8) 04/17/21 22:01 [place] # (Auto) 0.4 10^3/uL (0.2-0.9) 04/17/21 22:01 Eos # (Auto) 0.1 10^3/uL (0.0-0.8) 04/17/21 22:01 Baso # (Auto) 0.0 10^3/uL (0.0-0.1) 04/17/21 22:01 Nucleated RBC % (auto) 0 % 04/17/21 22: Nucleated RBCs # 0.0 /100WBC 04/17/21 22:01 Sodium 142 mmol/L (136-145) 04/17/21 22: Potassium 3.9 mmol/L (3.5-5.1) 04/17/21 22: Chloride 107 mmol/L (98-107) 04/17/21 22:01 Carbon Dioxide 25 mmol/L (22-29) 04/17/21 22:01 Anion Gap 13.9 (5-19) 04/17/21 22: BUN 18 mg/dL (6-20) 04/17/21 22: Creatinine 1.1 mg/dL (0.7-1.2) 04/17/21 22: GFR Calculation 75.7 mL/min (90-130) L 04/17/21 22: Glucose 96 mg/dL (65-115) 04/17/21 22: Calculated Osmolality 296 mOsm/kg (285-295) H 04/17/21 22: Calcium 9.1 mg/dL (8.5-10.5) 04/17/21 22:01 Total Bilirubin 0.2 mg/dL (0.15-1.2) 04/17/21 22: AST 16 U/L (0-40) 04/17/21 22:01 ALT 13 U/L (0-41) 04/17/21 22:01 Alkaline Phosphatase 95 IU/L (40-130) 04/17/21 22: Troponin T Baseline 9 ng/L (0-15) 04/17/21 22:01 Total Protein 6.0 g/dL (6.6-8.7) L 04/17/21 22:01 Albumin 4.6 g/dL (3.5-5.2) 04/17/21 22:01 Globulin 1.4 g/dL (1.3-4.6) 04/17/21 22:01 Lipase 52 U/L (13-60) 04/17/21 22:01 EKG Data EKG 1: I personally reviewed and interpreted this EKG as follows: EKG interpretation date: 05/15/21 EKG interpretation time: 21:41 Interpretation: Twelve-lead EKG shows a regular rhythm at a rate of 56. HI interval 175, QRS duration 118, QTc 370. Normal axis. Interpretation: Sinus rhythm. Interventricular conduction delay Discharge Plan Discharge Patient Disposition: Home Clinical Impression: Chest pain Condition: Stable Prescriptions: No Action vancomycin 125 mg capsule 125 mg PO Q6H 10 Days Qty: 40 0RF Discharge Orders: Discharge ED (Routine); Ordered 04/17/21 Ordered By: Jamison Patel Referrals: Pravin Rogel MD [Primary Care Provider] - Discharge Diet: Usual diet Discharge Activity: Resume usual activity Patient Instructions: Chest Pain (ED) Activity Restrictions/Additional Instructions: Thank you for visiting the emergency department. You were seen and evaluated for chest pain. The exact cause of your symptoms is unclear however it does not appear to need further inpatient management at this time. As discussed your low risk by heart score and you require further cardiac evaluation based on family history. Please follow-up with the gas stove servicer helper and your primary care provider. Please return to the emergency department for worsening symptoms or anything else that you are concerned about and feel needs emergency department evaluation. Coding Level of Care Code ED Mover for Chg Fwd Exam Comprehensive
--- NOTE | 2021-04-17 21:26 | XRR_ITS ---
PROCEDURE INFORMATION: Exam: XR Chest Exam date and time: 04/17/2021 9:26 PM Age: 35 years old Clinical indication: Chest wall pain; Additional info: Chest pain TECHNIQUE: Imaging protocol: XR of the chest. Views: 1 view. COMPARISON: CR XR chest 1V portable [id number] 07/16/2020 3:45 PM FINDINGS: Lungs: Unremarkable. No consolidation. Pleural spaces: Unremarkable. No pleural effusion. No pneumothorax. Heart/Mediastinum: Unremarkable. No cardiomegaly. Bones/joints: Unremarkable. XR/XR chest 1V portable [id number] IMPRESSION: No acute findings.
[2021-04-17 21:27] VITALS: BP 116/78; PULSE 61; RESP 18; TEMP 36.5; O2SAT 98; BMI 25.8
[2021-04-17] MEDS: aspirin 81 mg Chew Tablet 324 MG PO (21:59)
[2021-04-17] MEDS: lidocaine 2% viscous 15 ML, aluminum-mag hydrox-simethicon 30 ML, sucralfate oral liq 1 GM PO (22:00)
[2021-04-17 22:07] LABS: Basophils % 0.4 %; Eosinophils # 0.1 10^3/uL (0.0-0.8); Hematocrit 44.6 % (42.0-52.0); Hemoglobin 15.1 g/dL (11.7-16.6); Lymphocytes # 1.8 10^3/uL (0.8-4.8); Lymphocytes % 24.8 %; Mean Corpuscular HGB Conc 33.9 g/dL (30.0-36.0); Mean Corpuscular Hemoglobin 31.1 pg (28.0-34.0); Monocytes # 0.4 10^3/uL (0.2-0.9); Monocytes % 5.9 %; Neutrophils # 4.79 10^3/uL (1.8-7.7); Neutrophils % 67.6 %; Nucleated Red Blood Cells % 0 %; Platelet Count 192 10^3/cmm (130-400); Red Blood Count 4.85 10^6/uL (4.1-5.3); Red Cell Distribution Width 12.3 % (12.1-15.1); White Blood Count 7.1 10^3/uL (4.0-10.0)
[2021-04-17 22:33] VITALS: BP 122/58; PULSE 62; RESP 15; O2SAT 95
[2021-04-17 22:55] LABS: Alanine Aminotransferase 13 U/L (0-41); Albumin Level 4.6 g/dL (3.5-5.2); Alkaline Phosphatase 95 IU/L (40-130); Anion Gap 13.9 (5-19); Aspartate Amino Transferase 16 U/L (0-40); Blood Urea Nitrogen 18 mg/dL (6-20); Calcium 9.1 mg/dL (8.5-10.5); Carbon Dioxide 25 mmol/L (22-29); Chloride 107 mmol/L (98-107); Globulin 1.4 g/dL (1.3-4.6); Glomerular Filtration Rate 75.7 mL/min (90-130); Glucose 96 mg/dL (65-115); Lipase 52 U/L (13-60); Osmolality Calculated 296 mOsm/kg (285-295); Potassium 3.9 mmol/L (3.5-5.1); Sodium 142 mmol/L (136-145); Total Bilirubin 0.2 mg/dL (0.15-1.2)
[2021-04-17 22:59] LABS: Troponin(5th) Baseline 9 ng/L (0-15)
--- NOTE | 2021-04-17 23:00 | PC.NURSE ---
Pt reports only mild improvement in pain after GI cocktail, still having intermittent pain.
[2021-04-17 23:45] VITALS: BP 128/81; PULSE 45; RESP 14; O2SAT 98
--- NOTE | 2021-04-23 11:34 | DCPLANNER ---
Addendum entered by Erica Mendez 06/13/21 14:57: Patient had a follow up appointment scheduled for 05.20.21 with [facility] - patient did attend appointment. Patients insurance denied the stress test that was ordered for patient. district service manager unable to speak with patient at this time. Original Note: district service manager had message to schedule a followup appointment for patient with [facility]. district service manager called [facility] spoke with Antoinette, gave clinic patients information. A follow up appointment was scheduled for Thursday, May 20, 2021 at 1:[address] Reyna. district service manager called patients life partner and gave her the appointment information. district service manager also had message to schedule an outpatient stress test for patient. district service manager emailed signed order to Tammie at [facility], who will call patient with appointment information.
== END 2021-04-17 23:47 | disposition home or self-care (01) ==
PROVIDERS: Emergency Provider Emergency Medicine; PCP Family Medicine Adult Medicine
DX: R07.9 Chest pain, unspecified (principal); F17.210 Nicotine dependence, cigarettes, uncomplicated
CPT/HCPCS: 71045; 80053; 83690; 84484; 85025; 93005; 99283

== ENCOUNTER 2021-06-11 13:47 | Emergency (ER) | payer OTHER, SELFPAY ==
[2021-06-11 14:03] VITALS: BP 123/74; PULSE 65; RESP 18; TEMP 36.6; O2SAT 98; BMI 25.8
[2021-06-11 15:16] VITALS: BP 134/82; PULSE 58; RESP 13; O2SAT 99
[2021-06-11 15:16] LABS: Basophils % 0.5 %; Eosinophils # 0.1 10^3/uL (0.0-0.8); Eosinophils % 1.3 %; Hematocrit 45.6 % (42.0-52.0); Hemoglobin 15.4 g/dL (11.7-16.6); Lymphocytes # 2.3 10^3/uL (0.8-4.8); Lymphocytes % 29.8 %; Mean Corpuscular HGB Conc 33.8 g/dL (30.0-36.0); Mean Corpuscular Hemoglobin 30.9 pg (28.0-34.0); Mean Corpuscular Volume 91.6 fl (80-94); Monocytes # 0.6 10^3/uL (0.2-0.9); Monocytes % 7.4 %; Neutrophils # 4.65 10^3/uL (1.8-7.7); Neutrophils % 60.7 %; Nucleated Red Blood Cells % 0 %; Platelet Count 206 10^3/cmm (130-400); Red Blood Count 4.98 10^6/uL (4.1-5.3); Red Cell Distribution Width 12.8 % (12.1-15.1); White Blood Count 7.7 10^3/uL (4.0-10.0)
--- NOTE | 2021-06-11 15:35 | W.ED.GENADLT ---
HPI - General Adult General: Chief complaint: GI Bleed Stated complaint: N/V, abd pain Time Seen by Provider: 06/11/21 14:59 History of Present Illness: Patient is a 35-year-old male with history of loose stool, prior C. difficile who presents the emergency room for evaluation of mild streaks of blood in the stool with nausea/bloating, and left upper quadrant abdominal pain. Patient tells me that he has been dealing with this problem for the last year. Patient was previously diagnosed with colitis in 2020 and was started on antibiotics. Since then, patient noticed loose stool and diarrhea and occasionally bloody stool. Patient had a colonoscopy in Feb 2021 that was done which showed the patient had C. difficile. Patient was started on 2 rounds of C. difficile treatments. Patient says that he has cycles of loose stool with occasional blood in there. Earlier today, patient noticed left upper quadrant intermittent abdominal pain with nausea. Patient also noticed streaks of blood in his stool. Patient denies any melena or gross blood. Patient denies any urinary complaints. Denies any fever or chills, chest pain, shortness of palpitation or lightheadedness. Onset: chronic Duration: ongoing Location:home Severity:mild Associated symptoms: Reports nausea; Deny chest pain, dyspnea, rash, palpitations or vomiting Review of Systems Const: Denies: fever(s) or chills Eyes: Denies: change in vision ENMT: Denies: mouth pain Card: Denies: chest pain or palpitations Resp: Denies: dyspnea or non-productive cough GI: Reports: nausea, diarrhea and other (+occasional streaks of blood in stool); Denies: abdominal pain or vomiting : Denies: dysuria Musc: Denies: extremity pain Skin/Breast: Denies: rash or new lesions Neuro: Denies: weakness in extremities Psych: Reports: other (Normal mood) [place]/Lymph: Denies: easy bruising PFSH ED PFSH: Medical History BRBPR (bright red blood per rectum) Colitis presumed infectious Non-cardiac chest pain Smoker unmotivated to quit Viral gastroenteritis Surgical History Hx of tonsillectomy Social History Smoking and tobacco status: current every day smoker Alcohol intake: never Marital status: Number of children: 4 Number of grandchildren: 0 Current occupational status: employed Physical Exam Const: COMMON NORMALS: alert HENMT: COMMON NORMALS: atraumatic HEAD & SCALP: atraumatic MOUTH: moist mucous membranes not abnormal Eye: COMMON NORMALS: EOMs intact bilaterally and conjunctivae normal CONJUNCTIVA: Yes conjunctivae normal Neck/C-Spine: COMMON NORMALS: full ROM and supple Resp: COMMON NORMALS: normal respiratory effort and clear to auscultation bilaterally AUSCULTATION: clear to auscultation bilaterally Cardio: COMMON NORMALS: regular rate RATE: regular rate GI: COMMON NORMALS: Soft to palpation and non-tender PALPATION: Yes Soft to palpation OTHER: No focal TTP. NO guarding rebound, guarding, rigidity. No CVA tenderness to percussion. Neg Lewis/Neg McBurney's point tenderness, no suprabupic tenderness to palpation. Extremity: COMMON NORMALS: full ROM Neuro: SENSORIUM/ORIENTATION: Yes alert MOTOR EXAM: No Abnormal motor strength present and Other motor observations present (no focal motor deficits) Psych: COMMON NORMALS: speech normal SPEECH: Yes normal speech MOOD & AFFECT: Yes euthymic mood Course Vital Signs: Vital signs: Vital Signs Temperature 98.1 F 06/11/21 17:32 Pulse Rate 74 06/11/21 17:32 Respiratory Rate 13 06/11/21 17:32 Blood Pressure 113/90 06/11/21 17:32 Pulse Oximetry 99 06/11/21 17:32 MDM - General Adult Medical Decision Making 35-year-old male with a history of prior colitis, C. difficile presenting to the emergency room for concerns of diarrhea and streaks of blood in the stool. Patient is afebrile today with no focal abdominal tenderness palpation. White count 7.7. Hemoglobin 15.4. I offered rectal exam however patient declined at this time. I have given patient a stool cup for which to make sample of stool so that the sample can be tested for C diff in the future. Patient received GI cocktail and IVF is now able to tolerate p.o. after Zofran. Patient has no complaints abdominal pain with p.o. intake. The present time, do not suspect acute upper or lower GI bleeding. I have given patient close follow-up with primary care provider for reassessment to determine whether patient has significant. Patient is also instructed follow-up PCP for further evaluation of blood in stool. No suspicion for other acute intra-abdominal pathology including SBO, biliary pathology, appendicitis, diverticulitis, or other emergent condition requiring surgery. Stool sample sent from the ED. is aware of the need to follow-up with primary care provider for further evaluation to determine whether he has C. difficile again. Rx tylenol PRN abd pain, maalox/pepcid PRN dyspepsia, and zofran PRN nausea/vomiting Disposition: Discharge. Patient counseled regarding diagnostic impression, treatment plan. Patient given ED strict return precautions to return for continuation, worsening, or development of new symptoms. Instructed to f/u w/ PCP regarding symptoms today. Patient verbalized understanding. Lab Data : 06/11/21 15:09 06/11/21 15:09 Laboratory Results WBC 7.7 10^3/uL (4.0-10.0) 06/11/21 15:09 RBC 4.98 10^6/uL (4.1-5.3) 06/11/21 15:09 Hgb 15.4 g/dL (11.7-16.6) 06/11/21 15:09 Hct 45.6 % (42.0-52.0) 06/11/21 15:09 MCV 91.6 fl (80-94) 06/11/21 15:09 MCH 30.9 pg (28.0-34.0) 06/11/21 15:09 MCHC 33.8 g/dL (30.0-36.0) 06/11/21 15:09 RDW 12.8 % (12.1-15.1) 06/11/21 15:09 Plt Count 206 10^3/cmm (130-400) 06/11/21 15:09 MPV 11.0 fL (7.4-10.4) H 06/11/21 15:09 Neut % (Auto) 60.7 % 06/11/21 15:09 Lymph % (Auto) 29.8 % 06/11/21 15:09 [place] % (Auto) 7.4 % 06/11/21 15:09 Eos % (Auto) 1.3 % 06/11/21 15:09 Baso % (Auto) 0.5 % 06/11/21 15:09 Neut # (Auto) 4.65 10^3/uL (1.8-7.7) 06/11/21 15:09 Lymph # (Auto) 2.3 10^3/uL (0.8-4.8) 06/11/21 15:09 [place] # (Auto) 0.6 10^3/uL (0.2-0.9) 06/11/21 15:09 Eos # (Auto) 0.1 10^3/uL (0.0-0.8) 06/11/21 15:09 Baso # (Auto) 0.0 10^3/uL (0.0-0.1) 06/11/21 15:09 Nucleated RBC % (auto) 0 % 06/11/21 15:09 Nucleated RBCs # 0.0 /100WBC 06/11/21 15:09 Sodium 137 mmol/L (136-145) 06/11/21 15:09 Potassium 3.9 mmol/L (3.5-5.1) 06/11/21 15:09 Chloride 103 mmol/L (98-107) 06/11/21 15:09 Carbon Dioxide 26 mmol/L (22-29) 06/11/21 15:09 Anion Gap 11.9 (5-19) 06/11/21 15:09 BUN 15 mg/dL (6-20) 06/11/21 15:09 Creatinine 0.9 mg/dL (0.7-1.2) 06/11/21 15:09 GFR Calculation 95.5 mL/min (90-130) 06/11/21 15:09 Glucose 66 mg/dL (65-115) 06/11/21 15:09 Calculated Osmolality 283 mOsm/kg (285-295) L 06/11/21 15:09 Calcium 9.4 mg/dL (8.5-10.5) 06/11/21 15:09 Total Bilirubin 0.3 mg/dL (0.15-1.2) 06/11/21 15:09 AST 20 U/L (0-40) 06/11/21 15:09 ALT 14 U/L (0-41) 06/11/21 15:09 Alkaline Phosphatase 91 IU/L (40-130) 06/11/21 15:09 Total Protein 6.5 g/dL (6.6-8.7) L 06/11/21 15:09 Albumin 4.6 g/dL (3.5-5.2) 06/11/21 15:09 Globulin 1.9 g/dL (1.3-4.6) 06/11/21 15:09 Lipase 41 U/L (13-60) 06/11/21 15:09 Urine Color Yellow (Yellow) 06/11/21 16:00 Urine Appearance Clear (CLEAR) 06/11/21 16:00 Urine pH 6.5 (5-7) 06/11/21 16:00 Ur Specific [place] 1.020 (1.005-1.030) 06/11/21 16:00 Urine Protein Neg (Negative) 06/11/21 16:00 Urine Glucose (UA) Norm (Normal) 06/11/21 16:00 Urine Ketones 1+ (Negative) H 06/11/21 16:00 Urine Blood Neg (Negative) 06/11/21 16:00 Urine Nitrate Negative (Negative) 06/11/21 16:00 Urine Bilirubin Neg (Negative) 06/11/21 16:00 Urine Urobilinogen Norm mg/dL (Negative) 06/11/21 16:00 Ur Leukocyte Esterase Negative (Negative) 06/11/21 16:00 Discharge Plan Discharge Patient Disposition: Home Clinical Impression: Abdominal pain, Nausea, Diarrhea, Blood in stool Condition: Stable Prescriptions: New acetaminophen 500 mg tablet 500 mg PO Q6H PRN (Reason: pain) 5 Days Qty: 20 0RF Pepcid 20 mg tablet 20 mg PO BID PRN (Reason: abdominal pain) 10 Days Qty: 20 0RF ondansetron 4 mg tablet,disintegrating 4 mg PO TID PRN (Reason: nausea and vomiting) 4 Days Qty: 12 0RF Maalox Advanced 1,000-60 mg tablet,chewable 1 tab PO TID PRN (Reason: abdominal pain) 7 Days Qty: 21 0RF No Action Probiotic 2 cap PO BID 0RF pantoprazole 20 mg tablet,delayed release (DR/EC) 20 mg PO QAM 0RF Discharge Orders: Discharge ED (Routine); Ordered 06/11/21 Ordered By: Umesh Crystal Referrals: Pravin Rogel MD [Primary Care Provider] - Discharge Diet: Advance as tolerated Discharge Activity: Increase activity as tolerated Patient Instructions: Acute Diarrhea (ED), Abdominal Pain (ED) Activity Restrictions/Additional Instructions: Please come back if you have any worsening abdominal pain, fever or chills, nausea or vomiting, diarrhea, significant blood in the stool or dark/tarry stools, inability hold down liquid or solids, or any new concerning complaints. 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
[2021-06-11 15:38] LABS: Alanine Aminotransferase 14 U/L (0-41); Albumin Level 4.6 g/dL (3.5-5.2); Alkaline Phosphatase 91 IU/L (40-130); Anion Gap 11.9 (5-19); Aspartate Amino Transferase 20 U/L (0-40); Blood Urea Nitrogen 15 mg/dL (6-20); Calcium 9.4 mg/dL (8.5-10.5); Carbon Dioxide 26 mmol/L (22-29); Chloride 103 mmol/L (98-107); Creatinine Clr Calc Pharmacy 122.7117; Globulin 1.9 g/dL (1.3-4.6); Glomerular Filtration Rate 95.5 mL/min (90-130); Glucose 66 mg/dL (65-115); Lipase 41 U/L (13-60); Osmolality Calculated 283 mOsm/kg (285-295); Potassium 3.9 mmol/L (3.5-5.1); Sodium 137 mmol/L (136-145); Total Bilirubin 0.3 mg/dL (0.15-1.2); Total Protein 6.5 g/dL (6.6-8.7)
[2021-06-11 15:59] VITALS: BP 134/82; PULSE 65; RESP 13; O2SAT 98
[2021-06-11] MEDS: sodium chloride 0.9% 1,000 ML 999 ML IV (16:04)
[2021-06-11] MEDS: lidocaine 2% viscous 15 ML, aluminum-mag hydrox-simethicon 30 ML, sucralfate oral liq 1 GM PO (16:04)
[2021-06-11] MEDS: ondansetron 2 mg/ML SDV 2 mL 4 MG IVP (16:04)
[2021-06-11 16:14] LABS: Add Urine Microscopic? NO; Charge for UA Resulting for Rev
[2021-06-11 16:21] LABS: Urine Appearance Clear (CLEAR); Urine Color Yellow (Yellow)
[2021-06-11 16:22] LABS: Bilirubin Urine Neg (Negative); Blood Urine Neg (Negative); Glucose Urine UA Norm (Normal); Ketones Urine 1+ (Negative); Leukocyte Esterase Urine Negative (Negative); Nitrate Urine Negative (Negative); Protein Urine Neg (Negative); Urobilinogen Urine Norm (Negative); pH Urine 6.5 (5-7)
[2021-06-11 17:08] VITALS: BP 113/90; PULSE 74; RESP 14; O2SAT 99
[2021-06-11 17:32] VITALS: BP 113/90; PULSE 74; RESP 13; TEMP 36.7; O2SAT 99
--- NOTE | 2021-06-11 19:20 | PC.NURSE ---
Patient had positive C Diff. Advised Dr. Crystal, ordered vancomycin 125 mg PO 4x a day for 10 days. advised patient and called script in to [facility] in [place]
== END 2021-06-11 17:15 | disposition home or self-care (01) ==
PROVIDERS: Emergency Provider Emergency Medicine; PCP Family Medicine Adult Medicine
DX: R10.9 Unspecified abdominal pain (principal); R11.0 Nausea; R19.7 Diarrhea, unspecified; K92.1 Melena
CPT/HCPCS: 80053; 81003; 82274; 83630; 83690; 85025; 87493; 87506; 96361; 96374; 99284; J2405; J7030

== ENCOUNTER 2021-06-13 12:19 | Outpatient (CLI) | payer OTHER, SELFPAY ==
--- NOTE | 2021-06-13 12:45 | US_ITS ---
WS: [id number] RIGHT UPPER QUADRANT ULTRASOUND HISTORY: R10.9 - Unspecified abdominal pain COMPARISON: None available. Liver: 15.5 cm in length. Normal size liver. No bile duct dilatation or mass. Portal Vein: Normal hepatopetal flow with monophasic waveform. Gallbladder: Normally distended gallbladder with no stones or wall thickening. CBD: 0.4 cm Pancreas: Normal size and echogenicity. Right kidney: 10.1 cm in length. Normal size and echogenicity. No hydronephrosis or mass. Aorta and IVC: Normal aorta. IVC is very mildly dilated. Significance is uncertain. The remaining ult rasound is negative. No ascites. US/US gall bladder [id number] IMPRESSION: Normal RIGHT upper quadrant ultrasound.
== END 2021-06-13 12:20 | disposition home or self-care (01) ==
PROVIDERS: PCP Family Medicine Adult Medicine; Visit Provider Surgery
DX: R10.9 Unspecified abdominal pain (principal)
CPT/HCPCS: 76705

== ENCOUNTER 2021-06-17 10:46 | Emergency (ER) | payer OTHER, MEDICARE, SELFPAY ==
[2021-06-17 11:04] VITALS: BP 141/81; PULSE 49; RESP 16; TEMP 36; O2SAT 100; BMI 27.2
--- NOTE | 2021-06-17 12:59 | ED_ITS ---
HPI - Abdominal Pain General: Chief Complaint: Abdominal Pain Stated Complaint: severe abdominal pain/burning/chest pain Time Seen by Provider: 06/17/21 12:58 History of Present Illness: Mr. Davis is a 35-year-old gentleman with history of known C. difficile who presents to the emergency department due to abdominal pain. He reports symptoms have been worse starting this morning without known specific provoking factors. He has moderate to severe sharp pain in the right and left upper quadrants and epigastric region that radiates to the chest. He notes associated nausea but no vomiting. Stools have remained similar. For a number of months now he has had intermittent episodes of similar though presents because this is more than severe than typical. No other specific changes in health, exacerbating, or alleviating factors identified. Pertinent past history: other Onset (ago): month(s) Pain Consistency: constant Severity: severe Quality: aching, sharp and burning Radiation: epigastric and chest Exacerbating factors: nothing Relieving factors: nothing Review of Systems General: Reports: 10 or more systems reviewed and unremarkable except in HPI and below PFSH ED PFSH: Medical History BRBPR (bright red blood per rectum) Chronic generalized abdominal pain Non-cardiac chest pain Smoker unmotivated to quit Viral gastroenteritis Surgical History Hx of tonsillectomy Social History Smoking and tobacco status: current every day smoker Alcohol intake: never Marital status: Number of children: 4 Number of grandchildren: 0 Current occupational status: employed Physical Exam Const: COMMON NORMALS: alert GENERAL APPEARANCE: cooperative and well developed HENMT: COMMON NORMALS: normocephalic and atraumatic HEAD & SCALP: normocephalic and atraumatic Eye: COMMON NORMALS: conjunctivae normal CONJUNCTIVA: Yes conjunctivae no rmal SCLERA: sclerae normal Neck/C-Spine: COMMON NORMALS: supple GENERAL: Yes trachea midline Resp: COMMON NORMALS: clear to auscultation bilaterally EFFORT & INSPECTION: Yes able to speak in complete sentences AUSCULTATION: clear to auscultation bilaterally Cardio: COMMON NORMALS: regular rate and regular rhythm RATE: regular rate RHYTHM: regular rhythm GI: COMMON NORMALS: Soft to palpation PALPATION: Yes Soft to palpation, Yes Tenderness to palpation present (GI) Details: other (Epigastric), No Guarding due to palpation present (GI) and No Rigid due to palpation PERCUSSION: normal to percussion Extremity: GENERAL: Yes normal exam except as noted and No edema Neuro: COMMON NORMALS: moves all extremities SENSORIUM/ORIENTATION: Yes alert and No Orientation impaired Psych: COMMON NORMALS: mental status grossly normal and Normal thought process present THOUGHT PROCESS: Normal thought process present Course ED course: - Patient was seen and evaluated by me at bedside - Patient placed on cardiac monitors, IV access obtained - Initial evaluation notable for exam as above - Labs and EKG personally interpreted by me -Analgesia given, GI cocktail given. - Labs notable for no leukocytosis, hemoconcentration noted. Metabolic panel without acute derangement. - Imaging notable for no lobar consolidation or pneumothorax. CT abdomen pelvis without acute abnormality to explain patient's symptoms, small mesenteric and right lower quadrant lymph nodes likely secondary to known C. difficile - Upon serial reexamination after treatment the patient was improved - Based on patient history, evaluation, and testing as interpreted the most likely cause of the patient's condition is abdominal pain in the context of known C. difficile - The results of ED evaluation were discussed with the patient including prescriptions and/or symptomatic cares (if applicable) including appropriate and responsible use, followup plan, and return precautions. The patient verbalized understanding and felt safe for discharge. - Patient discharged in satisfactory condition. Note: Click bubbles or prepopulated lucio in note writing are used for assistance with data collection and billing and are inherently more limited than narrative and other text portions of this note. Please use narrative for additional clinical history and defer to narrative/free test for any case of contradictory information. If information appears in only free text or click bubble it should be considered present or absent as reported. Please contact note engineering technical writer for clarifications of clinical information or contradictory information. MDM is a brief summary, contradictory or erroneous seeming information should be clarified and full note should be reviewed. Vital Signs: Vital signs: Vital Signs Temperature 96.8 F L 06/17/21 11:04 Pulse Rate 60 06/17/21 17:12 Respiratory Rate 16 06/17/21 17:12 Blood Pressure 114/76 06/17/21 17:12 Pulse Oximetry 98 06/17/21 17:12 MDM - Abdominal Pain Medical Decision Making 35-year-old gentleman with history of recurrent C. difficile currently on again on antibiotics presenting with epigastric, abdominal, and chest pain. Negative ED evaluation. Satisfactory for continued outpatient management. Medical Records I reviewed the patient's medical records. Lab Data I reviewed the patient's lab results. : 06/17/21 13:00 06/17/21 13:00 Labs/Radiology: Radiology Impressions Abdomen/Pelvis CT 06/17/21 14:08 IMPRESSION: 1. No acute abdominal or pelvic abnormalities. 2. Normal appendix. 3. Sigmoid diverticulosis without acute diverticulitis. 4. Small mesenteric and RIGHT lower quadrant lymph nodes. Most consistent with mild mesenteric adenitis. Chest X-Ray 06/17/21 14:08 Impression: Negative chest. Laboratory Results WBC 6.8 10^3/uL (4.0-10.0) 06/17/21 13:00 RBC 5.53 10^6/uL (4.1-5.3) H 06/17/21 13:00 Hgb 17.2 g/dL (11.7-16.6) H 06/17/21 13:00 Hct 50.5 % (42.0-52.0) 06/17/21 13:00 MCV 91.3 fl (80-94) 06/17/21 13:00 MCH 31.1 pg (28.0-34.0) 06/17/21 13:00 MCHC 34.1 g/dL (30.0-36.0) 06/17/21 13:00 RDW 12.8 % (12.1-15.1) 06/17/21 13:00 Plt Count 226 10^3/cmm (130-400) 06/17/21 13:00 MPV 11.4 fL (7.4-10.4) H 06/17/21 13:00 Neut % (Auto) 55.3 % 06/17/21 13:00 Lymph % (Auto) 34.2 % 06/17/21 13:00 [place] % (Auto) 8.4 % 06/17/21 13:00 Eos % (Auto) 1.2 % 06/17/21 13:00 Baso % (Auto) 0.6 % 06/17/21 13:00 Neut # (Auto) 3.77 10^3/uL (1.8-7.7) 06/17/21 13:00 Lymph # (Auto) 2.3 10^3/uL (0.8-4.8) 06/17/21 13:00 [place] # (Auto) 0.6 10^3/uL (0.2-0.9) 06/17/21 13:00 Eos # (Auto) 0.1 10^3/uL (0.0-0.8) 06/17/21 13:00 Baso # (Auto) 0.0 10^3/uL (0.0-0.1) 06/17/21 13:00 Nucleated RBC % (auto) 0 % 06/17/21 13:00 Nucleated RBCs # 0.0 /100WBC 06/17/21 13:00 Sodium 136 mmol/L (136-145) 06/17/21 13:00 Potassium 5.0 mmol/L (3.5-5.1) 06/17/21 13:00 Chloride 100 mmol/L (98-107) 06/17/21 13:00 Carbon Dioxide 26 mmol/L (22-29) 06/17/21 13:00 Anion Gap 15.0 (5-19) 06/17/21 13:00 BUN 18 mg/dL (6-20) 06/17/21 13:00 Creatinine 0.9 mg/dL (0.7-1.2) 06/17/21 13:00 GFR Calculation 95.5 mL/min (90-130) 06/17/21 13:00 Glucose 91 mg/dL (65-115) 06/17/21 13:00 Calculated Osmolality 283 mOsm/kg (285-295) L 06/17/21 13:00 Calcium 8.9 mg/dL (8.5-10.5) 06/17/21 13:00 Total Bilirubin 0.9 mg/dL (0.15-1.2) 06/17/21 13:00 AST 32 U/L (0-40) 06/17/21 13:00 ALT 17 U/L (0-41) 06/17/21 13:00 Alkaline Phosphatase 88 IU/L (40-130) 06/17/21 13:00 Total Protein 7.4 g/dL (6.6-8.7) 06/17/21 13:00 Albumin 5.2 g/dL (3.5-5.2) 06/17/21 13:00 Globulin 2.2 g/dL (1.3-4.6) 06/17/21 13:00 Lipase 35 U/L (13-60) 06/17/21 13:00 Discharge Plan Discharge Patient Disposition: Home Clinical Impression: Abdominal pain, Dehydration Condition: Stable Prescriptions: No Action vancomycin 125 mg capsule 125 mg PO QID Qty: 40 0RF pantoprazole 20 mg tablet,delayed release (DR/EC) 20 mg PO QAM Qty: 30 1RF dicyclomine 20 mg tablet 20 mg PO QID PRN (Reason: abdominal pain/cramping) Qty: 60 0RF Probiotic 2 cap PO BID 0RF Discharge Orders: Discharge ED (Routine); Ordered 06/17/21 Ordered By: Jamison Patel Referrals: Pravin Rogel MD [Primary Care Provider] - Discharge Diet: Advance as tolerated and Clear Liquid Discharge Activity: Increase activity as tolerated Patient Instructions: Abdominal Pain (ED), Opioid Safety Activity Restrictions/Additional Instructions: Thank you for visiting the emergency department. You were seen and evaluated for abdominal pain. The exact cause of your symptoms is unclear though likely related to your underlying C. difficile. Please continue to follow-up with your GI/surgeon. Please follow-up with your primary care provider. Please return to the emergency department for worsening symptoms, inability tolerate oral intake, or anything else that you are concerned about and feel needs emergency department evaluation. 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
[2021-06-17 13:06] LABS: Basophils % 0.6 %; Eosinophils # 0.1 10^3/uL (0.0-0.8); Eosinophils % 1.2 %; Hematocrit 50.5 % (42.0-52.0); Hemoglobin 17.2 g/dL (11.7-16.6); Lymphocytes # 2.3 10^3/uL (0.8-4.8); Lymphocytes % 34.2 %; Mean Corpuscular HGB Conc 34.1 g/dL (30.0-36.0); Mean Corpuscular Hemoglobin 31.1 pg (28.0-34.0); Mean Corpuscular Volume 91.3 fl (80-94); Mean Platelet Volume 11.4 fL (7.4-10.4); Monocytes # 0.6 10^3/uL (0.2-0.9); Monocytes % 8.4 %; Neutrophils # 3.77 10^3/uL (1.8-7.7); Neutrophils % 55.3 %; Nucleated Red Blood Cells % 0 %; Platelet Count 226 10^3/cmm (130-400); Red Blood Count 5.53 10^6/uL (4.1-5.3); Red Cell Distribution Width 12.8 % (12.1-15.1); White Blood Count 6.8 10^3/uL (4.0-10.0)
[2021-06-17 13:32] LABS: Alanine Aminotransferase 17 U/L (0-41); Albumin Level 5.2 g/dL (3.5-5.2); Alkaline Phosphatase 88 IU/L (40-130); Blood Urea Nitrogen 18 mg/dL (6-20); Calcium 8.9 mg/dL (8.5-10.5); Carbon Dioxide 26 mmol/L (22-29); Chloride 100 mmol/L (98-107); Globulin 2.2 g/dL (1.3-4.6); Glomerular Filtration Rate 95.5 mL/min (90-130); Glucose 91 mg/dL (65-115); Lipase 35 U/L (13-60); Osmolality Calculated 283 mOsm/kg (285-295); Sodium 136 mmol/L (136-145); Total Bilirubin 0.9 mg/dL (0.15-1.2); Total Protein 7.4 g/dL (6.6-8.7)
[2021-06-17 13:34] LABS: Aspartate Amino Transferase 32 U/L (0-40)
[2021-06-17 13:39] VITALS: RESP 18; O2SAT 100
[2021-06-17] MEDS: lidocaine 2% viscous 15 ML, aluminum-mag hydrox-simethicon 30 ML, sucralfate oral liq 1 GM PO (13:39)
[2021-06-17] MEDS: morphine 4 mg/mL SDV 1 mL IVP ×2 (13:39→17:05)
[2021-06-17 13:40] VITALS: BP 124/61; PULSE 50; O2SAT 100
[2021-06-17] MEDS: sodium chloride 0.9% 1,000 ML 999 ML IV (13:40)
--- NOTE | 2021-06-17 14:08 | CT_ITS ---
WS: [id number] CT ABDOMEN AND PELVIS WITH CONTRAST HISTORY: LUQ and RUQ pain TECHNIQUE: Imaging performed of the abdomen and pelvis with IV contrast. Single phase imaging of the abdomen. Coronal and sagittal reformats are submitted. All CT scans at [facility] use at [address] one of these dose optimization techniques: automated exposure control; mA and/or kV adjustment per patient size (includes targeted exams where dose is matched to clinical indication); or iterative re construction. IV CONTRAST: Omnipaque 350; 95 mL IV. Oral contrast: No DLP: 1364.86 mGy.cm COMPARISON: 04/16/2021 Lower thorax: Lung bases are clear. Heart is normal size. No hiatal hernia. Liver/biliary system: Normal size with no intrahepatic dilatation. Normal portal vein. Gallbladder: Normal. No gallstones or wall thickening. No pericholecystic fluid. Pancreas: Normal size pancreas and pancreatic duct. No adjacent inflammation. Spleen: Normal size spleen. No mass or infarct. Adrenal glands: Normal. Right kidney: Normal size kidney. The very tiny hypodensity in the posterior upper pole which is too small to characterize. Left kidney: Normal. Aorta: Normal. Lymphadenopathy: There are a few small, subcentimeter lymph nodes in the mesentery and RIGHT lower qu adrant. Free fluid: None. GI tract: Normal appendix. No GI tract obstruction. No new submucosal edema. Sigmoid diverticula with no acute diverticulitis. Abdominal wall: Unremarkable abdominal wall. No hernia. Pelvis: No free fluid or adenopathy within the pelvis. Bones: Unremarkable. CT/CT abdomen pelvis w con* [id number] IMPRESSION: 1. No acute abdominal or pelvic abnormalities. 2. Normal appendix. 3. Sigmoid diverticulosis without acute diverticulitis. 4. Small mesenteric and RIGHT lower quadrant lymph nodes. Most consistent with mild mesenteric adenitis.
--- NOTE | 2021-06-17 14:08 | XR_ITS ---
WS: [id number] Portable AP upright chest, 06/17/2021 Clinical Data: R sided chest pain Comparison: Portable chest, 04/17/2021. Findings: No nodules, masses or effusions are seen. The heart is normal. The pulmonary vascularity is not increased. No pneumonia or pneumothorax is seen. XR/XR chest 1V portable [id number] Impression: Negative chest.
[2021-06-17 14:10] VITALS: BP 124/61; PULSE 40; O2SAT 98
[2021-06-17] MEDS: iohexol 350 mg/mL 100 mL Btl IV (15:44)
[2021-06-17 17:12] VITALS: BP 114/76; PULSE 60; RESP 16; O2SAT 98
== END 2021-06-17 17:14 | disposition home or self-care (01) ==
PROVIDERS: Emergency Provider Emergency Medicine; PCP Family Medicine Adult Medicine
DX: E86.0 Dehydration (principal); R10.9 Unspecified abdominal pain; F17.210 Nicotine dependence, cigarettes, uncomplicated
CPT/HCPCS: 71045; 74177; 80053; 83690; 85025; 96361; 96374; 96376; 99283; J2270; J7030; Q9967

== ENCOUNTER 2021-06-26 06:02 | Emergency (ER) | payer OTHER, SELFPAY ==
[2021-06-26 06:08] VITALS: BP 120/77; PULSE 48; RESP 18; TEMP 36.4; O2SAT 99; BMI 27.2
[2021-06-26 06:25] VITALS: BP 113/56; PULSE 53; RESP 21; O2SAT 98
--- NOTE | 2021-06-26 06:29 | ED_ITS ---
HPI - Chest Pain General: Chief Complaint: Chest Pain Stated Complaint: Chest Pains Time Seen by Provider: 06/26/21 06:16 [facility]LY [facility], [facility] ED PFSH: Medical History BRBPR (bright red blood per rectum) Chronic generalized abdominal pain Non-cardiac chest pain Smoker unmotivated to quit Viral gastroenteritis Surgical History Hx of tonsillectomy Social History Smoking and tobacco status: current every day smoker Alcohol intake: never Marital status: Number of children: 4 Number of grandchildren: 0 Current occupational status: employed Course Vital Signs: Vital signs: Vital Signs Temperature 97.5 F L 06/26/21 06:08 Pulse Rate 44 L 06/26/21 06:43 Respiratory Rate 18 06/26/21 06:43 Blood Pressure 111/62 06/26/21 06:43 Pulse Oximetry 98 06/26/21 06:43 MDM - Chest Pain Lab Data : 06/26/21 06:20 06/26/21 06:20 Radiology Impressions Chest X-Ray 06/26/21 06:30 IMPRESSION: 1. Small linear density projecting in the right upper lobe may be external to the patient. 2. No acute cardiopulmonary process. ADDENDUM: 06/26/21 0812 Repeat radiograph after clothing removed may be warranted if object is not found with search. Laboratory Results WBC 7.7 10^3/uL (4.0-10.0) 06/26/21 06:20 RBC 4.82 10^6/uL (4.1-5.3) 06/26/21 06:20 Hgb 14.9 g/dL (11.7-16.6) 06/26/21 06:20 Hct 43.8 % (42.0-52.0) 06/26/21 06:20 MCV 90.9 fl (80-94) 06/26/21 06:20 MCH 30.9 pg (28.0-34.0) 06/26/21 06:20 MCHC 34.0 g/dL (30.0-36.0) 06/26/21 06:20 RDW 12.3 % (12.1-15.1) 06/26/21 06:20 Plt Count 199 10^3/cmm (130-400) 06/26/21 06:20 MPV 11.6 fL (7.4-10.4) H 06/26/21 06:20 Neut % (Auto) 61.1 % 06/26/21 06:20 Lymph % (Auto) 29.4 % 06/26/21 06:20 [place] % (Auto) 6.9 % 06/26/21 06:20 Eos % (Auto) 1.8 % 06/26/21 06:20 Baso % (Auto) 0.7 % 06/26/21 06:20 Neut # (Auto) 4.68 10^3/uL (1.8-7.7) 06/26/21 06:20 Lymph # (Auto) 2.3 10^3/uL (0.8-4.8) 06/26/21 06:20 [place] # (Auto) 0.5 10^3/uL (0.2-0.9) 06/26/21 06:20 Eos # (Auto) 0.1 10^3/uL (0.0-0.8) 06/26/21 06:20 Baso # (Auto) 0.1 10^3/uL (0.0-0.1) 06/26/21 06:20 Nucleated RBC % (auto) 0 % 06/26/21 06:20 Nucleated RBCs # 0.0 /100WBC 06/26/21 06:20 Sodium 139 mmol/L (136-145) 06/26/21 06:20 Potassium 3.9 mmol/L (3.5-5.1) 06/26/21 06:20 Chloride 106 mmol/L (98-107) 06/26/21 06:20 Carbon Dioxide 22 mmol/L (22-29) 06/26/21 06:20 Anion Gap 14.9 (5-19) 06/26/21 06:20 BUN 23 mg/dL (6-20) H 06/26/21 06:20 Creatinine 0.9 mg/dL (0.7-1.2) 06/26/21 06:20 GFR Calculation 95.5 mL/min (90-130) 06/26/21 06:20 Glucose 103 mg/dL (65-115) 06/26/21 06:20 Calculated Osmolality 292 mOsm/kg (285-295) 06/26/21 06:20 Calcium 9.3 mg/dL (8.5-10.5) 06/26/21 06:20 Total Bilirubin 0.3 mg/dL (0.15-1.2) 06/26/21 06:20 AST 18 U/L (0-40) 06/26/21 06:20 ALT 14 U/L (0-41) 06/26/21 06:20 Alkaline Phosphatase 95 IU/L (40-130) 06/26/21 06:20 Troponin T Gen 5 ng/L 8 ng/L (0-15) 06/26/21 06:20 Total Protein 6.6 g/dL (6.6-8.7) 06/26/21 06:20 Albumin 4.3 g/dL (3.5-5.2) 06/26/21 06:20 Globulin 2.3 g/dL (1.3-4.6) 06/26/21 06:20 Discharge Plan Discharge Condition: Stable Prescriptions: No Action vancomycin 125 mg capsule 125 mg PO QID Qty: 40 0RF pantoprazole 20 mg tablet,delayed release (DR/EC) 20 mg PO QAM Qty: 30 1RF dicyclomine 20 mg tablet 20 mg PO QID PRN (Reason: abdominal pain/cramping) Qty: 60 0RF Probiotic 2 cap PO BID 0RF oxycodone 5 mg Tablet 5 mg PO Q4H PRN (Reason: Pain) 0RF Referrals: Pravin Rogel MD [Primary Care Provider] - Coding Level of Care Code ED Real Estate Processor for Raymondg Yobani
--- NOTE | 2021-06-26 06:30 | XRR_ITS ---
PROCEDURE INFORMATION: Exam: XR Chest Exam date and time: 06/26/2021 6:36 AM Age: 35 years old Clinical indication: Angina; Patient HX: Chest pain since this am; Additional info: Dyspnea/cough TECHNIQUE: Imaging protocol: XR of the chest. Views: 1 view. Total images: 1 COMPARISON: CR XR chest 1V portable [id number] 06/17/2021 2:13 PM FINDINGS: Lungs: Small linear density projecting in the right upper lobe may be external to the patient. Pleural spaces: Unremarkable. No pleural effusion. No pneumothorax. Heart/Mediastinum: Unremarkable. No cardiomegaly. Bones/joints: Unremarkable. XR/XR chest 1V portable [id number] IMPRESSION: 1. Small linear density projecting in the right upper lobe may be external to the patient. 2. No acute cardiopulmonary process.
[2021-06-26] MEDS: ondansetron 2 mg/ML SDV 2 mL 4 MG IVP (06:37)
[2021-06-26] MEDS: lactated ringers 1,000 ML 999 ML IV ×2 (06:38→06:39)
[2021-06-26 06:43] VITALS: BP 111/62; PULSE 44; RESP 18; O2SAT 98
[2021-06-26 06:45] LABS: Basophils # 0.1 10^3/uL (0.0-0.1); Basophils % 0.7 %; Eosinophils # 0.1 10^3/uL (0.0-0.8); Eosinophils % 1.8 %; Hematocrit 43.8 % (42.0-52.0); Hemoglobin 14.9 g/dL (11.7-16.6); Lymphocytes # 2.3 10^3/uL (0.8-4.8); Lymphocytes % 29.4 %; Mean Corpuscular Hemoglobin 30.9 pg (28.0-34.0); Mean Corpuscular Volume 90.9 fl (80-94); Mean Platelet Volume 11.6 fL (7.4-10.4); Monocytes # 0.5 10^3/uL (0.2-0.9); Monocytes % 6.9 %; Neutrophils # 4.68 10^3/uL (1.8-7.7); Neutrophils % 61.1 %; Nucleated Red Blood Cells % 0 %; Platelet Count 199 10^3/cmm (130-400); Red Blood Count 4.82 10^6/uL (4.1-5.3); Red Cell Distribution Width 12.3 % (12.1-15.1); White Blood Count 7.7 10^3/uL (4.0-10.0)
[2021-06-26 07:12] LABS: Alanine Aminotransferase 14 U/L (0-41); Albumin Level 4.3 g/dL (3.5-5.2); Alkaline Phosphatase 95 IU/L (40-130); Anion Gap 14.9 (5-19); Aspartate Amino Transferase 18 U/L (0-40); Blood Urea Nitrogen 23 mg/dL (6-20); Calcium 9.3 mg/dL (8.5-10.5); Carbon Dioxide 22 mmol/L (22-29); Chloride 106 mmol/L (98-107); Globulin 2.3 g/dL (1.3-4.6); Glomerular Filtration Rate 95.5 mL/min (90-130); Glucose 103 mg/dL (65-115); Osmolality Calculated 292 mOsm/kg (285-295); Potassium 3.9 mmol/L (3.5-5.1); Sodium 139 mmol/L (136-145); Total Bilirubin 0.3 mg/dL (0.15-1.2); Total Protein 6.6 g/dL (6.6-8.7)
[2021-06-26 08:27] LABS: Troponin T (5th) Once 8 ng/L (0-15)
--- NOTE | 2021-06-26 10:14 | W.ED.ABDPA2 ---
HPI - Abdominal Pain General: Chief Complaint: Chest Pain Stated Complaint: Chest Pains Time Seen by Provider: 06/26/21 06:16 Source: patient Mode of arrival: ambulatory Limitations: no limitations History of Present Illness: 35-year-old male presents emergency room with complaint of right upper quadrant abdominal pain. This been ongoing for some time he seen surgery he has had gallbladder ultrasound which was negative. They are scheduling a HIDA scan but has not yet been completed. He was recently diagnosed with C. difficile he is on vancomycin he reports his stools are still loose and somewhat mucousy but have been firming up he has not had any bright red blood. No vomiting or diarrhea he was on oxycodone which she states seemed to help but he is down to 1 tablet and was concerned that he was out. Denies any fever sweats chills dysuria urgency or frequency. He has not had any cough or shortness of breath. MD elicited complaint: abdominal pain Pertinent past history: none Onset (ago): day(s) Pain Consistency: intermittent Location: LUQ Severity: moderate Quality: cramping Radiation: none Migration to: no migration Exacerbating factors: nothing Relieving factors: nothing Associated Symptoms: Reports GI cramping and poor appetite; Denies anorexia, belching, bloating, change in bowel habits, change in stool character, chills, coffee ground emesis, constipation, diarrhea, dyspepsia, dysuria, excessive flatus, fever(s), heartburn, hematochezia, hematuria, hematemesis, fecal incontinence, loose stools, melena, nausea, syncope and vomiting Review of Systems Const: Denies: fever(s), chills, body aches or change in appetite ENMT: Denies: throat pain, ear or mastoid pain, nasal discharge or nasal congestion Card: Denies: syncope Resp: Denies: dyspnea, productive cough or non-productive cough GI: Reports: GI cramping; Denies: nausea, vomiting, hematemesis, coffee ground emesis, heartburn, diarrhea, constipation, bloating, belching, excessive flatus, fecal incontinence, change in bowel habits, change in stool character, hematochezia or melena : Denies: dysuria or hematuria Skin/Breast: Denies: rash or pruritus PFSH ED PFSH: Medical History BRBPR (bright red blood per rectum) Chronic generalized abdominal pain Non-cardiac chest pain Smoker unmotivated to quit Viral gastroenteritis Surgical History Hx of tonsillectomy Social History Smoking and tobacco status: current every day smoker Alcohol intake: never Marital status: Number of children: 4 Number of grandchildren: 0 Current occupational status: employed Physical Exam Const: GENERAL APPEARANCE: cooperative and comfortable ORIENTATION/CONSCIOUSNESS: Yes awake, Yes oriented to person, Yes oriented to place and Yes oriented to time HENMT: COMMON NORMALS: normocephalic, atraumatic and hearing grossly normal bilaterally HEAD & SCALP: normocephalic and atraumatic Neck/C-Spine: COMMON NORMALS: no JVD Resp: COMMON NORMALS: normal respiratory effort, No retractions, No use of accessory muscles and clear to auscultation bilaterally AUSCULTATION: clear to auscultation bilaterally Cardio: COMMON NORMALS: no JVD, regular rate, regular rhythm and No murmurs present (Cardio) RATE: regular rate RHYTHM: regular rhythm GI: COMMON NORMALS: Soft to palpation and No hepatosplenomegaly present AUSCULTATION: Yes normoactive bowel sounds PALPATION: Yes Soft to palpation, No Tenderness to palpation present (GI), No Guarding due to palpation present (GI) and Yes No hepatosplenomegaly present Extremity: COMMON NORMALS: normal to inspection, capillary refill normal, no clubbing, cyanosis or edema, no calf tenderness and no pedal edema Neuro: SENSORIUM/ORIENTATION: Yes oriented to person, Yes oriented to place and Yes oriented to time Skin: COMMON NORMALS: no rashes or lesions noted GENERAL SKIN EXAM: no rashes or lesions noted Course Vital Signs: Vital signs: Vital Signs Temperature 97.5 F L 06/26/21 06:08 Pulse Rate 44 L 06/26/21 06:43 Respiratory Rate 18 06/26/21 06:43 Blood Pressure 111/62 06/26/21 06:43 Pulse Oximetry 98 06/26/21 06:43 MDM - Abdominal Pain Medical Decision Making Exam is benign labs reviewed. With relatively benign exam repeating CT with normal labs seems unlikely to be helpful. Previous CT was unremarkable. Give tramadol to use as needed clear liquid diet follow-up with primary care doctor. Increase pantoprazole to twice daily may need to reevaluate with primary care and have EGD done. Medical Records I reviewed the patient's medical records. Lab Data I reviewed the patient's lab results. : 06/26/21 06:20 06/26/21 06:20 Labs/Radiology: Radiology Impressions Chest X-Ray 06/26/21 06:30 IMPRESSION: 1. Small linear density projecting in the right upper lobe may be external to the patient. 2. No acute cardiopulmonary process. ADDENDUM: 06/26/21 0812 Repeat radiograph after clothing removed may be warranted if object is not found with search. Laboratory Results WBC 7.7 10^3/uL (4.0-10.0) 06/26/21 06:20 RBC 4.82 10^6/uL (4.1-5.3) 06/26/21 06:20 Hgb 14.9 g/dL (11.7-16.6) 06/26/21 06:20 Hct 43.8 % (42.0-52.0) 06/26/21 06:20 MCV 90.9 fl (80-94) 06/26/21 06:20 MCH 30.9 pg (28.0-34.0) 06/26/21 06:20 MCHC 34.0 g/dL (30.0-36.0) 06/26/21 06:20 RDW 12.3 % (12.1-15.1) 06/26/21 06:20 Plt Count 199 10^3/cmm (130-400) 06/26/21 06:20 MPV 11.6 fL (7.4-10.4) H 06/26/21 06:20 Neut % (Auto) 61.1 % 06/26/21 06:20 Lymph % (Auto) 29.4 % 06/26/21 06:20 [place] % (Auto) 6.9 % 06/26/21 06:20 Eos % (Auto) 1.8 % 06/26/21 06:20 Baso % (Auto) 0.7 % 06/26/21 06:20 Neut # (Auto) 4.68 10^3/uL (1.8-7.7) 06/26/21 06:20 Lymph # (Auto) 2.3 10^3/uL (0.8-4.8) 06/26/21 06:20 [place] # (Auto) 0.5 10^3/uL (0.2-0.9) 06/26/21 06:20 Eos # (Auto) 0.1 10^3/uL (0.0-0.8) 06/26/21 06:20 Baso # (Auto) 0.1 10^3/uL (0.0-0.1) 06/26/21 06:20 Nucleated RBC % (auto) 0 % 06/26/21 06:20 Nucleated RBCs # 0.0 /100WBC 06/26/21 06:20 Sodium 139 mmol/L (136-145) 06/26/21 06:20 Potassium 3.9 mmol/L (3.5-5.1) 06/26/21 06:20 Chloride 106 mmol/L (98-107) 06/26/21 06:20 Carbon Dioxide 22 mmol/L (22-29) 06/26/21 06:20 Anion Gap 14.9 (5-19) 06/26/21 06:20 BUN 23 mg/dL (6-20) H 06/26/21 06:20 Creatinine 0.9 mg/dL (0.7-1.2) 06/26/21 06:20 GFR Calculation 95.5 mL/min (90-130) 06/26/21 06:20 Glucose 103 mg/dL (65-115) 06/26/21 06:20 Calculated Osmolality 292 mOsm/kg (285-295) 06/26/21 06:20 Calcium 9.3 mg/dL (8.5-10.5) 06/26/21 06:20 Total Bilirubin 0.3 mg/dL (0.15-1.2) 06/26/21 06:20 AST 18 U/L (0-40) 06/26/21 06:20 ALT 14 U/L (0-41) 06/26/21 06:20 Alkaline Phosphatase 95 IU/L (40-130) 06/26/21 06:20 Troponin T Gen 5 ng/L 8 ng/L (0-15) 06/26/21 06:20 Total Protein 6.6 g/dL (6.6-8.7) 06/26/21 06:20 Albumin 4.3 g/dL (3.5-5.2) 06/26/21 06:20 Globulin 2.3 g/dL (1.3-4.6) 06/26/21 06:20 Discharge Plan Discharge Patient Disposition: Home Clinical Impression: Clostridioides difficile infection, Acute mesenteric lymphadenitis Condition: Stable Prescriptions: New ondansetron HCl 4 mg tablet 4 mg PO Q6H PRN (Reason: nausea and vomiting) Qty: 20 0RF tramadol 50 mg tablet 50 mg PO Q6H PRN (Reason: pain) Qty: 10 0RF Changed pantoprazole 20 mg tablet,delayed release (DR/EC) 20 mg PO BID Qty: 30 1RF No Action vancomycin 125 mg capsule 125 mg PO QID Qty: 40 0RF dicyclomine 20 mg tablet 20 mg PO QID PRN (Reason: abdominal pain/cramping) Qty: 60 0RF Probiotic 2 cap PO BID 0RF oxycodone 5 mg Tablet 5 mg PO Q4H PRN (Reason: Pain) 0RF Discharge Orders: Discharge ED (Routine); Ordered 06/26/21 Ordered By: Brian Easton Referrals: Pravin Rogel MD [Primary Care Provider] - Patient Instructions: Opioid Safety Activity Restrictions/Additional Instructions: Follow-up with Dr. Enrique. Return to the emergency room if you have any change in symptoms. Clinical diet for next 24 to 48 hours. Increase your pantoprazole to twice daily. Coding Level of Care Code ED Director Of Compliance for Matt Hilton
== END 2021-06-26 09:21 | disposition home or self-care (01) ==
PROVIDERS: Physician Assistant; Emergency Provider Family Medicine; PCP Family Medicine Adult Medicine
DX: I88.0 Nonspecific mesenteric lymphadenitis (principal); B96.89 Other specified bacterial agents as the cause of diseases classified elsewhere; F17.200 Nicotine dependence, unspecified, uncomplicated
CPT/HCPCS: 71045; 80053; 84484; 85025; 96374; 99284; J2405

== ENCOUNTER 2021-07-09 11:26 | Emergency (ER) | payer OTHER, SELFPAY ==
[2021-07-09] VITALS (7 sets, daily range): BP systolic 109–126; BP diastolic 30–72; PULSE 41–55; RESP 16–18; TEMP 36.6; O2SAT 96–100; BMI 27.2
--- NOTE | 2021-07-09 11:38 | XRR_ITS ---
PROCEDURE INFORMATION: Exam: XR Chest Exam date and time: 07/09/2021 11:44 AM Age: 35 years old Clinical indication: Pain; Angina pectoris; Additional info: Chest pain TECHNIQUE: Imaging protocol: XR of the chest. Views: 1 view. COMPARISON: CR (CHEST, ) 06/26/2021 6:36 AM FINDINGS: Lungs: Unremarkable. No consolidation. Pleural spaces: Unremarkable. No pleural effusion. No pneumothorax. Heart/Mediastinum: Unremarkable. No cardiomegaly. Bones/joints: Unremarkable. XR/XR chest 1V portable [id number] IMPRESSION: No acute findings.
--- NOTE | 2021-07-09 11:39 | ECG_ITS ---
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 Measurements Intervals [place] Rate: 49 P: 73 AL: 172 QRS: 95 QRSD: 105 T: 58 QT: 410 QTc: 373 Interpretive Statements SINUS BRADYCARDIA POSSIBLE LEFT ATRIAL ENLARGEMENT [-0.1mV P-WAVE IN V1/V2] BORDERLINE RIGHT AXIS DEVIATION [QRS AXIS > 90] EARLY REPOLARIZATION [ST ELEVATION WITH NORMALLY INFLECTED T-WAVE] Compared to ECG 04/17/2021 21:41:20 Sinus arrhythmia no longer present Intraventricular conduction delay no longer present Electronically Signed On 07-09-2021 17:09:52 CDT by Ed Barth M.D. [id number]
--- NOTE | 2021-07-09 11:50 | W.ED.GENADLT ---
HPI - General Adult General: Chief complaint: Chest Pain Stated complaint: Pain in sternum & rt side, dizziness, lightheaded Time Seen by Provider: 07/09/21 11:38 History of Present Illness: This is a [35]yo patient w/ hx of mesenteric adenitis, family hx of cardiac disease presenting to the ED complaining of acute sudden onset intermittent sharp chest pain lasting for 10-15 minutes at a time x 6am today. No associated with shortness of breath, chest pain or dyspnea on exertion. Pain is not tearing in nature and does not radiate to the back. Pain not associated with vomiting or PO intake. Denies any recent sympathomimetic drug use. Patient denies any cough. Denies palpitations, dysphagia, diaphoresis, radiation of pain to bilateral arms, jaw. Denies F/N/V/D. Patient denies any recent immobility, surgery, unilateral leg swelling, or prior PE. Patient denies any orthopnea. Onset: 6am Duration: ongoing since 6am Location: home Severity: mild/moderate Associated symptoms: Reports chest pain; Deny dyspnea, nausea, rash, palpitations or vomiting Review of Systems Const: Denies: fever(s) or chills Eyes: Denies: change in vision ENMT: Denies: mouth pain Card: Reports: chest pain; Denies: palpitations Resp: Denies: dyspnea or non-productive cough GI: Denies: abdominal pain, nausea, vomiting or diarrhea : Denies: dysuria Musc: Denies: extremity pain Skin/Breast: Denies: rash or new lesions Neuro: Denies: weakness in extremities Psych: Reports: other (Normal mood) Edenilson/Lymph: Denies: easy bruising PFSH ED PFSH: Medical History BRBPR (bright red blood per rectum) Chronic diarrhea Chronic generalized abdominal pain Non-cardiac chest pain Smoker unmotivated to quit Surgical History Hx of tonsillectomy Social History Smoking and tobacco status: current every day smoker Alcohol intake: never Marital status: Number of children: 4 Number of grandchildren: 0 Current occupational status: employed Physical Exam Const: COMMON NORMALS: alert HENMT: COMMON NORMALS: atraumatic HEAD & SCALP: atraumatic MOUTH: moist mucous membranes not abnormal Eye: COMMON NORMALS: EOMs intact bilaterally and conjunctivae normal CONJUNCTIVA: Yes conjunctivae normal Neck/C-Spine: COMMON NORMALS: full ROM and supple Resp: COMMON NORMALS: normal respiratory effort and clear to auscultation bilaterally AUSCULTATION: clear to auscultation bilaterally Cardio: COMMON NORMALS: regular rate RATE: regular rate OTHER: 2+ radial pulses b/l GI: COMMON NORMALS: Soft to palpation and non-tender PALPATION: Yes Soft to palpation Extremity: COMMON NORMALS: full ROM Neuro: SENSORIUM/ORIENTATION: Yes alert MOTOR EXAM: No Abnormal motor strength present and Other motor observations present (no focal motor deficits) Psych: COMMON NORMALS: speech normal SPEECH: Yes normal speech MOOD & AFFECT: Yes euthymic mood Course Vital Signs: Vital signs: Vital Signs Temperature 98 F 07/09/21 16:18 Pulse Rate 51 L 07/09/21 16:18 Respiratory Rate 18 07/09/21 16:18 Blood Pressure 126/51 07/09/21 16:18 Pulse Oximetry 99 07/09/21 16:18 MDM - General Adult Medical Decision Making [35]yo patient w/ hx of family hx of CAD, c diff presenting to the ED with evaluation of new onset sharp chest pain since 6am. HDS, pulse 2+ radially bilaterally, no signs of fluid overload, AAOx3, neuro exam intact. Given History and Exam today I have no suspicion for ACS, Pneumothorax, Pneumonia, Pulmonary Embolus, Tamponade, Aortic Dissection or other emergent problems as a cause for this presentation. Workup: ECG x2, CXR, CBC, BMP, Troponin x 2 Interventions: ASA, morphine Findings: ECG: No overt evidence of STEMI, hyperacute T waves, localizable STD or T wave inversions. No evidence of Brugada?s sign, delta wave, epsilon wave, significantly prolonged QTc, or malignant arrhythmia. Anterior Q waves observed Other Labs unremarkable for emergent problems. CXR: Without PTX, PNA, or widened mediastinum Last Stress Test: never Last Heart Catheterization: never [4:05pm] On reassessment, the patient is HDS, no complaints of persistent chest pain in the ED after evaluation. ECG is non-ischemic. Workup today is unremarkable. D-dimer within normal limit. Troponin x2 within normal limit. Patient's pain improved with morphine, Dilaudid. Given findings of anterior Q waves, decision was made to obtain an ultrasound. Ultrasound did not show any wall motion abnormalities. Doubt ACS/PE or other emergent causes of chest pain. No suspicion for aortic dissection given no widened mediastinum, 2+ upper extremity pulses, or tearing pain. No suspicion for PE given no pleuritic chest pain, recent immobilization or surgery hemoptysis, or other VTE risk factors. EKG is non-ischemic. XR normal. I have given patient follow up with our mattress spring encaser to be seen by our outpatient Cardiology for findings of Q waves and family hx of cardiac disease as patient may be a candidate for close followup. Patient aware of a call from our mattress spring encaser to schedule for appointment(s) and verbalizes understanding of the importance of following up. Rx: Tyleonl 500mg Q6Hrs x 4 days PRN pain Disposition: Discharge. Strict return precautions discussed with the patient with full understanding. Advised patient to follow up promptly with a primary care provider in 24-48 hrs if the patient has persistent symptoms. Given return instructions for any crushing/tearing chest pain, focal weakness, syncope or any new or concerning issues. Lab Data : 07/09/21 12:05 07/09/21 12:05 Radiology Impressions Chest X-Ray 07/09/21 11:38 IMPRESSION: No acute findings. Laboratory Results WBC 7.3 10^3/uL (4.0-10.0) 07/09/21 12:05 RBC 4.70 10^6/uL (4.1-5.3) 07/09/21 12:05 Hgb 14.8 g/dL (11.7-16.6) 07/09/21 12:05 Hct 43.3 % (42.0-52.0) 07/09/21 12:05 MCV 92.1 fl (80-94) 07/09/21 12:05 MCH 31.5 pg (28.0-34.0) 07/09/21 12:05 MCHC 34.2 g/dL (30.0-36.0) 07/09/21 12:05 RDW 12.4 % (12.1-15.1) 07/09/21 12:05 Plt Count 204 10^3/cmm (130-400) 07/09/21 12:05 MPV 11.3 fL (7.4-10.4) H 07/09/21 12:05 Neut % (Auto) 64.1 % 07/09/21 12:05 Lymph % (Auto) 28.9 % 07/09/21 12:05 [place] % (Auto) 5.3 % 07/09/21 12:05 Eos % (Auto) 1.1 % 07/09/21 12:05 Baso % (Auto) 0.3 % 07/09/21 12:05 Neut # (Auto) 4.70 10^3/uL (1.8-7.7) 07/09/21 12:05 Lymph # (Auto) 2.1 10^3/uL (0.8-4.8) 07/09/21 12:05 [place] # (Auto) 0.4 10^3/uL (0.2-0.9) 07/09/21 12:05 Eos # (Auto) 0.1 10^3/uL (0.0-0.8) 07/09/21 12:05 Baso # (Auto) 0.0 10^3/uL (0.0-0.1) 07/09/21 12:05 Nucleated RBC % (auto) 0 % 07/09/21 12:05 Nucleated RBCs # 0.0 /100WBC 07/09/21 12:05 D-Dimer <= 0.27 ug/mIFEU (0-0.59) 07/09/21 12:05 Sodium 134 mmol/L (136-145) L 07/09/21 12:05 Potassium 3.7 mmol/L (3.5-5.1) 07/09/21 12:05 Chloride 101 mmol/L (98-107) 07/09/21 12:05 Carbon Dioxide 24 mmol/L (22-29) 07/09/21 12:05 Anion Gap 12.7 (5-19) 07/09/21 12:05 BUN 21 mg/dL (6-20) H 07/09/21 12:05 Creatinine 0.8 mg/dL (0.7-1.2) 07/09/21 12:05 GFR Calculation 109.4 mL/min (90-130) 07/09/21 12:05 Glucose 92 mg/dL (65-115) 07/09/21 12:05 Calculated Osmolality 281 mOsm/kg (285-295) L 07/09/21 12:05 Calcium 8.4 mg/dL (8.5-10.5) L 07/09/21 12:05 Troponin T Baseline 7 ng/L (0-15) 07/09/21 12:05 Troponin T 120 Minute 6.00 ng/L (0-15) 07/09/21 12:50 Delta Troponin T -1 ABS# (0-10) L 07/09/21 12:50 Imaging Data Other Imaging: Radiologist's impression: Official [employer] [address] XRay Report Signed Patient: Nick Montoya Unit #: [id number] : 1985 Age/Sex: 35 / M ADM Date: 07/09/21 Loc: ER Room/Bed: Attending Dr: Ordering Provider/Ordering MD: Umesh Crystal MD Date of Service: 07/09/21 Procedure(s): XR chest 1V portable [id number] Accession Number(s): [id number] Report Number: [id number] PROCEDURE INFORMATION: Exam: XR Chest Exam date and time: 07/09/2021 11:44 AM Age: 35 years old Clinical indication: Pain; Angina pectoris; Additional info: Chest pain TECHNIQUE: Imaging protocol: XR of the chest. Views: 1 view. COMPARISON: CR (CHEST, ) 06/26/2021 6:36 AM FINDINGS: Lungs: Unremarkable. No consolidation. Pleural spaces: Unremarkable. No pleural effusion. No pneumothorax. Heart/Mediastinum: Unremarkable. No cardiomegaly. Bones/joints: Unremarkable. XR/XR chest 1V portable [id number] IMPRESSION: No acute findings. ? Dictated By: Dat Bills Signed By: Dat Bills Signed Date/Time: 07/09/21 1157 DD/ 1144 Discharge Plan Discharge Patient Disposition: Home Clinical Impression: Chest pain Condition: Stable Prescriptions: No Action pantoprazole 40 mg tablet,delayed release (DR/EC) 40 mg PO BID Qty: 60 2RF dicyclomine 20 mg tablet 20 mg PO QID PRN (Reason: abdominal pain/cramping) Qty: 60 0RF tramadol 50 mg tablet 50 mg PO Q6H PRN (Reason: pain) 30 Days Qty: 60 1RF Probiotic Acidophilus 1.5 mg (250 million cell) Capsule 2,000 mmu cells PO BID 0RF Discharge Orders: Discharge ED (Routine); Ordered 07/09/21 Ordered By: Umesh Crystal Referrals: Pravin Rogel MD [Primary Care Provider] - Discharge Diet: Advance as tolerated Discharge Activity: Increase activity as tolerated Patient Instructions: Chest Pain (ED) Activity Restrictions/Additional Instructions: Come back to the emergency room if your chest pain worsens, have any fever or chills, worsening shortness of breath, worsening exertional lightheadedness, or any new or concerning complaints. Our mattress spring encaser will have you follow-up with Cardiology in the next few days. You would be expected to have a phone call with our mattress spring encaser who will put you on the schedule. You can expect a call from us in the next 2-3 days. If you don't hear from us, call us back in the emergency room at [phone]. Stand Alone Forms: Work/School Release Coding Level of Care Code ED Clam Grower for Raymondg Fwd Exam Comprehensive
[2021-07-09 12:38] LABS: Basophils % 0.3 %; Eosinophils # 0.1 10^3/uL (0.0-0.8); Eosinophils % 1.1 %; Hematocrit 43.3 % (42.0-52.0); Hemoglobin 14.8 g/dL (11.7-16.6); Lymphocytes # 2.1 10^3/uL (0.8-4.8); Lymphocytes % 28.9 %; Mean Corpuscular HGB Conc 34.2 g/dL (30.0-36.0); Mean Corpuscular Hemoglobin 31.5 pg (28.0-34.0); Mean Corpuscular Volume 92.1 fl (80-94); Mean Platelet Volume 11.3 fL (7.4-10.4); Monocytes # 0.4 10^3/uL (0.2-0.9); Monocytes % 5.3 %; Neutrophils % 64.1 %; Nucleated Red Blood Cells % 0 %; Platelet Count 204 10^3/cmm (130-400); Red Cell Distribution Width 12.4 % (12.1-15.1); White Blood Count 7.3 10^3/uL (4.0-10.0)
[2021-07-09 12:47] LABS: Troponin(5th) Baseline 7 ng/L (0-15)
[2021-07-09 12:48] LABS: Blood Urea Nitrogen 21 mg/dL (6-20); Calcium 8.4 mg/dL (8.5-10.5); Carbon Dioxide 24 mmol/L (22-29); Chloride 101 mmol/L (98-107); Creatinine Clr Calc Pharmacy 141.3266; Glomerular Filtration Rate 109.4 mL/min (90-130); Glucose 92 mg/dL (65-115); Osmolality Calculated 281 mOsm/kg (285-295); Sodium 134 mmol/L (136-145)
[2021-07-09 12:50] LABS: Anion Gap 12.7 (5-19); Potassium 3.7 mmol/L (3.5-5.1)
[2021-07-09] MEDS: morphine 4 mg/mL SDV 1 mL IVP ×2 (12:56→15:41)
[2021-07-09] MEDS: aspirin 325 mg Tablet PO (12:58)
--- NOTE | 2021-07-09 13:39 | ECG_ITS ---
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 Measurements Intervals [place] Rate: 45 P: 65 MI: 179 QRS: 89 QRSD: 105 T: 59 QT: 425 QTc: 368 Interpretive Statements SINUS BRADYCARDIA EARLY REPOLARIZATION [ST ELEVATION WITH NORMALLY INFLECTED T-WAVE] Compared to ECG 07/09/2021 12:22:19 No significant changes Electronically Signed On 07-09-2021 17:15:33 CDT by Ed Barth M.D. [id number]
--- NOTE | 2021-07-09 13:41 | USCV_ITS ---
Nick Montoya Age: 35 Gender: M : 1985 Exam Date: 07/09/2021 13:52 Ordering Phys: Umesh Crystal MD Technologist: RADHA Exam Location: [facility] [place] Indication: CHEST PAIN BP: 118 / 72 HR: 41 Rhythm: Sinus Technical Quality: Adequate MEASUREMENTS (Male / Female) Normal Values 2D ECHO LV Diastolic Diameter PLAX 5.3 cm 4.2 - 5.9 / 3.9 - 5.3 cm LV Systolic Diameter PLAX 3.4 cm IVS Diastolic Thickness 1.2 cm 0.6 - 1.0 / 0.6 - 0.9 cm IVS Systolic Thickness 1.6 cm LVPW Diastolic Thickness 1.1 cm 0.6 - 1.0 / 0.6 - 0.9 cm LVPW Systolic Thickness 1.8 cm LVOT Diameter 2.0 cm LV Ejection Fraction 2D Teich 65.4 % LV Ejection Fraction MOD 2C 67.9 % LV Ejection Fraction 2C AL 67.6 % LA Diameter 2.4 cm LA Width 2.8 cm LA Height 4.2 cm RA Width 3.6 cm RA Height 4.8 cm Aorta at Sinotubular Diameter 2.7 cm IVC Diameter 1.9 cm M-MODE Aortic Annulus Diameter 3.0 cm LA Ao Ratio MM 0.8 MV E Point Septal Separation 0.3 cm DOPPLER AV Peak Velocity 90.0 cm/s LVOT Peak Velocity 65.0 cm/s AV Area Cont Eq vti 2.5 cm squared AV Area Cont Eq pk 2.3 cm squared MV Peak Velocity 122.0 cm/s MV Area PHT 4.4 cm squared Mitral E to A Ratio 2.0 MV E' Velocity 57.5 cm/s Mitral E to MV E' Ratio 6.8 Mitral E to LV E' Lateral Ratio 6.0 Mitral E to LV E' Septal Ratio 7.8 TR Peak Velocity 173.7 cm/s TR Peak Gradient 12.1 mmHg TR Mean Velocity 132.9 cm/s TR Mean Gradient 7.4 mmHg TR Velocity Time Integral 47.6 cm TV Peak E Velocity 60.0 cm/s Right Atrial Pressure 3.0 mmHg Pulmonary Artery Systolic Pressu 15.1 mmHg PV Peak Velocity 75.0 cm/s RV Acceleration Time 0.2 s RV Ejection Time 0.4 s RV AcT/ET 0.5 FINDINGS Left Ventricle Normal left ventricular size, systolic function and wall thickness, with no regional wall motion abnormalities. Left ventricular ejection fraction is estimated at 60%. Normal diastolic function for age. Right Ventricle Normal right ventricular size and systolic function. Right ventricular systolic pressure 15.1 mmHg. Right Atrium Normal right atrial size. Right atrial pressure estimated at 3 mmHg. Left Atrium Normal left atrial size. Mitral Valve Structurally normal mitral valve. No mitral valve stenosis. Trace mitral valve regurgitation. Aortic Valve Structurally normal trileaflet aortic valve. No aortic valve stenosis. No aortic valve regurgitation. Tricuspid Valve Structurally normal tricuspid valve. No tricuspid valve stenosis. Trace tricuspid valve regurgitation. Pulmonic Valve Structurally normal pulmonic valve. No pulmonary valve stenosis. Trace pulmonary valve regurgitation. Pericardium No pericardial effusion. Aorta Normal size aortic root and proximal ascending aorta. Normal descending aorta size. IVC Normal IVC dimension with >50% respiratory change of the inferior vena cava. CONCLUSIONS 1. Normal left ventricular size, systolic function and wall thickness, with no regional wall motion abnormalities. Left ventricular ejection fraction is estimated at 60%. Normal diastolic function for age. 2. Normal right ventricular size and systolic function. 3. No significant valvular abnormality. 4. No prior similar studies to compare. Claire Iraheta MD (Electronically Signed) Final Date: 09 Jul 2021 18:07 S
[2021-07-09 14:11] LABS: Troponin 5 2HR Delta -1 ABS# (0-10)
[2021-07-09 14:46] LABS: D Dimer <= 0.27 ug/mIFEU (0-0.59)
[2021-07-09] MEDS: ketorolac 30 mg/mL INJ IVP (15:41)
--- NOTE | 2021-07-10 12:47 | DCPLANNER ---
Addendum entered by Erica Mendez 07/19/21 10:27: Patient had a follow up appointment scheduled for 07.15.[facility] with [facility] - patient did attend appointment. Original Note: manager foreign had message to schedule a follow up appointment for patient with [facility]. manager foreign sent patients information the the front office staff at [facility]. Patients information will be printed and reviewed. Clinic will call patient with appointment information.
== END 2021-07-09 16:26 | disposition home or self-care (01) ==
PROVIDERS: Emergency Provider Emergency Medicine; PCP Family Medicine Adult Medicine
DX: R07.9 Chest pain, unspecified (principal)
CPT/HCPCS: 71045; 80048; 84484; 85025; 85378; 93005; 93306; 96374; 96375; 96376; 99285; J1885; J2270

== ENCOUNTER 2021-07-18 11:52 | Emergency (ER) | payer OTHER, SELFPAY ==
[2021-07-18 12:01] VITALS: BP 113/72; PULSE 49; RESP 14; TEMP 36.7; O2SAT 99
[2021-07-18 12:16] VITALS: BP 113/72; PULSE 49; RESP 14; TEMP 36.7; O2SAT 99
--- NOTE | 2021-07-18 12:20 | ED_ITS ---
Documented by User: SAMANTHA Ward 07/19/21 12:16 HPI - Nausea/Vomiting/Diarrhea General: Chief complaint: Abdominal Pain Stated complaint: abd pain, black stool Time Seen by Provider: 07/18/21 12:07 History of Present Illness: Patient is a 35-year-old male comes to the ED with diarrhea and abdominal pain. Patient says he has had C. difficile in the past that has continued to recur. He had C. difficile back in November 2020 and has been treated for C. difficile multiple times and it keeps reoccurring. He just finished 20 days of being on vancomycin for C. difficile approximately 2 weeks ago. Within the last week he started developing diarrhea again and yesterday he was having some red blood in stool and today he is having more black tarry stoo l. Over the last 48 hours he is having bowel movements almost every hour. Denies any fevers, nausea or vomiting. He endorses some mild to moderate generalized bilateral lower abdominal pain that waxes and wanes. Associated nausea: No Associated symtoms: Denies change in vision, chest pain, dysuria, fatigue, headache(s), nausea or palpitations Review of Systems Const: Denies: fever(s), chills or fatigue Eyes: Denies: change in vision or eye discomfort ENMT: Denies: throat pain, odynophagia, nasal discharge or nasal congestion Card: Denies: chest pain, palpitations, edema, swelling of feet/ankles, dyspnea on exertion or orthopnea Resp: Denies: dyspnea, productive cough or non-productive cough GI: Reports: abdominal pain, diarrhea, hematochezia and melena; Denies: nausea, vomiting or constipation : Denies: flank pain, difficulty urinating, dysuria or hematuria Musc: Denies: neck pain, back pain or extremity swelling Skin/Breast: Denies: rash or new lesions Neuro: Denies: headache(s), numbness in extremities or weakness in extremities PFSH ED PFSH: Medical History Black tarry stools BRBPR (bright red blood per rectum) Chronic diarrhea Chronic generalized abdominal pain Non-cardiac chest pain Smoker unmotivated to quit Surgical History Hx of tonsillectomy Social History Smoking and tobacco status: current every day smoker Alcohol intake: never Marital status: Number of children: 4 Number of grandchildren: 0 Current occupational status: employed Physical Exam Const: COMMON NORMALS: patient oriented x3 and alert GENERAL APPEARANCE: cooperative HENMT: COMMON NORMALS: normocephalic HEAD & SCALP: normocephalic MOUTH: Normal oral and palatal mucosa present THROAT: posterior oropharynx normal and uvula midline Neck/C-Spine: COMMON NORMALS: supple GENERAL: Yes normal visual inspection Resp: COMMON NORMALS: normal respiratory effort, No retractions, No use of accessory muscles and clear to auscultation bilaterally AUSCULTATION: clear to auscultation bilaterally Cardio: COMMON NORMALS: regular rate, regular rhythm, S1 normal heart sound present, S2 normal heart sound present, No gallops present (Cardio), No clicks present (Cardio), No murmurs present (Cardio) and Peripheral pulses 2+ thro ughout RATE: regular rate RHYTHM: regular rhythm HEART SOUNDS: S1 normal heart sound present and S2 normal heart sound present PERIPHERAL PULSES: Peripheral pulses 2+ throughout GI: COMMON NORMALS: Normal to inspection, nondistended, normoactive bowel sounds present, Soft to palpation and no masses PALPATION: Yes Soft to palpation and Yes Tenderness to palpation present (GI) (Generalized bilateral lower abdominal tenderness. No focal tenderness) Details: LLQ and RLQ : COMMON NORMALS: Yes no CVA tenderness BLADDER/KIDNEY EXAM: Yes no CVA tenderness Back/Pelvis: COMMON NORMALS: no CVA tenderness Extremity: COMMON NORMALS: normal to inspection Neuro: COMMON NORMALS: patient oriented x3 SENSORIUM/ORIENTATION: Yes alert GAIT: Yes Normal gait present Skin: GENERAL SKIN EXAM: dry skin Course Vital Signs: Vital signs: Vital Signs Temperature 98.0 F 07/18/21 12:16 Pulse Rate 46 L 07/18/21 18:37 Respiratory Rate 16 07/18/21 18:37 Blood Pressure 131/78 07/18/21 18:37 Pulse Oximetry 100 07/18/21 18:37 MDM - Nausea/Vomiting/Diarrhea Lab Data I reviewed the patient's lab results. : 07/18/21 12:27 07/18/21 13:17 Radiology Impressions Abdomen/Pelvis CT 07/18/21 14:18 IMPRESSION: 1. No acute abdominal or pelvic abnormalities are identified. No ascites. No adenopathy. 2. Normal appendix. 3. Patient has had several CTs in the recent months. Patient may benefit from a CT with good IV and oral contrast as an outpatient or colonoscopy as the symptoms seem to persist. Mild wall thickening or early changes of inflammatory bowel disease or Crohn's may not be visible on this unenhanced CT. Laboratory Results WBC 5.9 10^3/uL (4.0-10.0) 07/18/21 12: RBC 4.63 10^6/uL (4.1-5.3) 07/18/21 12: Hgb 14.4 g/dL (11.7-16.6) 07/18/21 12: Hct 42.3 % (42.0-52.0) 07/18/21 12: MCV 91.4 fl (80-94) 07/18/21 12: MCH 31.1 pg (28.0-34.0) 07/18/21 12: MCHC 34.0 g/dL (30.0-36.0) 07/18/21 12: RDW 12.2 % (12.1-15.1) 07/18/21 12: Plt Count 175 10^3/cmm (130-400) 07/18/21 12: MPV 11.4 fL (7.4-10.4) H 07/18/21 12: Neut % (Auto) 61.7 % 07/18/21 12: Lymph % (Auto) 30.4 % 07/18/21 12: Knott % (Auto) 5.8 % 07/18/21 12: Eos % (Auto) 1.4 % 07/18/21 12: Baso % (Auto) 0.5 % 07/18/21 12: Neut # (Auto) 3.61 10^3/uL (1.8-7.7) 07/18/21 12: Lymph # (Auto) 1.8 10^3/uL (0.8-4.8) 07/18/21 12: Knott # (Auto) 0.3 10^3/uL (0.2-0.9) 07/18/21 12: Eos # (Auto) 0.1 10^3/uL (0.0-0.8) 07/18/21 12:27 Baso # (Auto) 0.0 10^3/uL (0.0-0.1) 07/18/21 12:27 Nucleated RBC % (auto) 0 % 07/18/21 12:27 Nucleated RBCs # 0.0 /100WBC 07/18/21 12:27 Sodium 138 mmol/L (136-145) 07/18/21 13:17 Potassium 3.6 mmol/L (3.5-5.1) 07/18/21 13:17 Chloride 106 mmol/L (98-107) 07/18/21 13:17 Carbon Dioxide 24 mmol/L (22-29) 07/18/21 13:17 Anion Gap 11.6 (5-19) 07/18/21 13:17 BUN 19 mg/dL (6-20) 07/18/21 13:17 Creatinine 0.9 mg/dL (0.7-1.2) 07/18/21 13:17 GFR Calculation 95.5 mL/min (90-130) 07/18/21 13:17 Glucose 85 mg/dL (65-115) 07/18/21 13:17 Calculated Osmolality 288 mOsm/kg (285-295) 07/18/21 13:17 Calcium 8.2 mg/dL (8.5-10.5) L 07/18/21 13:17 Total Bilirubin 0.2 mg/dL (0.15-1.2) 07/18/21 13:17 AST 16 U/L (0-40) 07/18/21 13:17 ALT 12 U/L (0-41) 07/18/21 13:17 Alkaline Phosphatase 72 IU/L (40-130) 07/18/21 13:17 Total Protein 5.9 g/dL (6.6-8.7) L 07/18/21 13:17 Albumin 4.1 g/dL (3.5-5.2) 07/18/21 13:17 Globulin 1.8 g/dL (1.3-4.6) 07/18/21 13:17 Lipase 33 U/L (13-60) 07/18/21 13:17 Urine Color Yellow (Yellow) 07/18/21 12:26 Urine Appearance Clear (CLEAR) 07/18/21 12:26 Urine pH 5 (5-7) 07/18/21 12:26 Ur Specific [place] 1.025 (1.005-1.030) 07/18/21 12:26 Urine Protein Neg (Negative) 07/18/21 12:26 Urine Glucose (UA) Norm (Normal) 07/18/21 12:26 Urine Ketones Negative (Negative) 07/18/21 12:26 Urine Blood Neg (Negative) 07/18/21 12:26 Urine Nitrate Negative (Negative) 07/18/21 12:26 Urine Bilirubin Neg (Negative) 07/18/21 12:26 Urine Urobilinogen Norm mg/dL (Negative) 07/18/21 12:26 Ur Leukocyte Esterase Negative (Negative) 07/18/21 12:26 Discharge Plan Discharge Patient Disposition: Home Clinical Impression: Clostridioides difficile infection Condition: Stable Prescriptions: New metronidazole 500 mg tablet 500 mg PO Q8H 14 Days Qty: 42 0RF hydrocodone-acetaminophen 5-325 mg tablet 1 tab PO Q6H PRN (Reason: pain) Qty: 7 0RF No Action pantoprazole 40 mg tablet,delayed release (DR/EC) 40 mg PO BID Qty: 60 2RF dicyclomine 20 mg tablet 20 mg PO QID PRN (Reason: abdominal pain/cramping) Qty: 60 0RF tramadol 50 mg tablet 50 mg PO Q6H PRN (Reason: pain) 30 Days Qty: 60 1RF Probiotic Acidophilus 1.5 mg (250 million cell) Capsule 2,000 mmu cells PO BID 0RF Discharge Orders: Discharge ED (Routine); Ordered 07/18/21 Ordered By: Vidal Flynn Referrals: Pravin Rogel MD [Primary Care Provider] - Discharge Diet: Usual diet Discharge Activity: Increase activity as tolerated Activity Restrictions/Additional Instructions: Home and rest. Drink plenty of water. Follow-up with primary care in 1 week for recheck. Return to ER for worsening symptoms such as fever greater than 100.4, inability to hold fluids down, or new concerns. Stand Alone Forms: Work/School Release Sign Out Sign Out Data: Patient Sign Out occurred on 07/18/21 at 17:07. Patient's care was discussed, and care was transferred from to Vidal Flynn. 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 for Chg Fwd Exam Comprehensive Documented by User: MANNY Magana 07/18/21 18:11 HPI - Nausea/Vomiting/Diarrhea General: Chief complaint: Abdominal Pain Stated complaint: abd pain, black stool Time Seen by Provider: 07/18/21 12:07 PFSH ED PFSH: Medical History Black tarry stools BRBPR (bright red blood per rectum) Chronic diarrhea Chronic generalized abdominal pain Non-cardiac chest pain Smoker unmotivated to quit Surgical History Hx of tonsillectomy Social History Smoking and tobacco status: current every day smoker Alcohol intake: never Marital status: Number of children: 4 Number of grandchildren: 0 Current occupational status: employed Course Vital Signs: Vital signs: Vital Signs Temperature 98.0 F 07/18/21 12:16 Pulse Rate 46 L 07/18/21 18:37 Respiratory Rate 16 07/18/21 18:37 Blood Pressure 131/78 07/18/21 18:37 Pulse Oximetry 100 07/18/21 18:37 MDM - Nausea/Vomiting/Diarrhea Medical Decision Making Patient comes in with increasing diarrhea stools. Patient has a history of C. difficile infection. Patient just completed a round of vancomycin about 2 weeks ago. Patient is followed by Dr. Bravo and is set up for a HIDA scan to evaluate for further regarding his recurrent C. difficile infection. On exam patient has some abdominal tenderness. Vital signs are normal. Differential diagnosis includes chronic C. difficile infection, colitis, gastroenteritis. CBC and CMP were unremarkable. Lactoferrin of the stool was negative. Occult blood was negative. C. difficile PCR was positive for type B. We will go ahead and put patient Flagyl 500mg 3 times a day for the next 14 days. Patient was encouraged drink plenty of fluids and follow-up as needed. Patient stated understanding agreed to plan. Lab Data : 07/18/21 12:27 07/18/21 13:17 Radiology Impressions Abdomen/Pelvis CT 07/18/21 14:18 IMPRESSION: 1. No acute abdominal or pelvic abnormalities are identified. No ascites. No adenopathy. 2. Normal appendix. 3. Patient has had several CTs in the recent months. Patient may benefit from a CT with good IV and oral contrast as an outpatient or colonoscopy as the symptoms seem to persist. Mild wall thickening or early changes of inflammatory bowel disease or Crohn's may not be visible on this unenhanced CT. Laboratory Results WBC 5.9 10^3/uL (4.0-10.0) 07/18/21 12: RBC 4.63 10^6/uL (4.1-5.3) 07/18/21 12: Hgb 14.4 g/dL (11.7-16.6) 07/18/21 12: Hct 42.3 % (42.0-52.0) 07/18/21 12: MCV 91.4 fl (80-94) 07/18/21 12: MCH 31.1 pg (28.0-34.0) 07/18/21 12: MCHC 34.0 g/dL (30.0-36.0) 07/18/21 12: RDW 12.2 % (12.1-15.1) 07/18/21 12: Plt Count 175 10^3/cmm (130-400) 07/18/21 12: MPV 11.4 fL (7.4-10.4) H 07/18/21 12:27 Neut % (Auto) 61.7 % 07/18/21 12:27 Lymph % (Auto) 30.4 % 07/18/21 12:27 Knott % (Auto) 5.8 % 07/18/21 12: Eos % (Auto) 1.4 % 07/18/21 12: Baso % (Auto) 0.5 % 07/18/21 12:27 Neut # (Auto) 3.61 10^3/uL (1.8-7.7) 07/18/21 12: Lymph # (Auto) 1.8 10^3/uL (0.8-4.8) 07/18/21 12:27 Knott # (Auto) 0.3 10^3/uL (0.2-0.9) 07/18/21 12:27 Eos # (Auto) 0.1 10^3/uL (0.0-0.8) 07/18/21 12:27 Baso # (Auto) 0.0 10^3/uL (0.0-0.1) 07/18/21 12:27 Nucleated RBC % (auto) 0 % 07/18/21 12:27 Nucleated RBCs # 0.0 /100WBC 07/18/21 12:27 Sodium 138 mmol/L (136-145) 07/18/21 13:17 Potassium 3.6 mmol/L (3.5-5.1) 07/18/21 13:17 Chloride 106 mmol/L (98-107) 07/18/21 13:17 Carbon Dioxide 24 mmol/L (22-29) 07/18/21 13:17 Anion Gap 11.6 (5-19) 07/18/21 13:17 BUN 19 mg/dL (6-20) 07/18/21 13:17 Creatinine 0.9 mg/dL (0.7-1.2) 07/18/21 13:17 GFR Calculation 95.5 mL/min (90-130) 07/18/21 13:17 Glucose 85 mg/dL (65-115) 07/18/21 13:17 Calculated Osmolality 288 mOsm/kg (285-295) 07/18/21 13:17 Calcium 8.2 mg/dL (8.5-10.5) L 07/18/21 13:17 Total Bilirubin 0.2 mg/dL (0.15-1.2) 07/18/21 13:17 AST 16 U/L (0-40) 07/18/21 13:17 ALT 12 U/L (0-41) 07/18/21 13:17 Alkaline Phosphatase 72 IU/L (40-130) 07/18/21 13:17 Total Protein 5.9 g/dL (6.6-8.7) L 07/18/21 13:17 Albumin 4.1 g/dL (3.5-5.2) 07/18/21 13:17 Globulin 1.8 g/dL (1.3-4.6) 07/18/21 13:17 Lipase 33 U/L (13-60) 07/18/21 13:17 Urine Color Yellow (Yellow) 07/18/21 12:26 Urine Appearance Clear (CLEAR) 07/18/21 12:26 Urine pH 5 (5-7) 07/18/21 12:26 Ur Specific [place] 1.025 (1.005-1.030) 07/18/21 12:26 Urine Protein Neg (Negative) 07/18/21 12:26 Urine Glucose (UA) Norm (Normal) 07/18/21 12:26 Urine Ketones Negative (Negative) 07/18/21 12:26 Urine Blood Neg (Negative) 07/18/21 12:26 Urine Nitrate Negative (Negative) 07/18/21 12:26 Urine Bilirubin Neg (Negative) 07/18/21 12:26 Urine Urobilinogen Norm mg/dL (Negative) 07/18/21 12:26 Ur Leukocyte Esterase Negative (Negative) 07/18/21 12:26 Discharge Plan Discharge Patient Disposition: Home Clinical Impression: Clostridioides difficile infection Condition: Stable Prescriptions: New metronidazole 500 mg tablet 500 mg PO Q8H 14 Days Qty: 42 0RF hydrocodone-acetaminophen 5-325 mg tablet 1 tab PO Q6H PRN (Reason: pain) Qty: 7 0RF No Action pantoprazole 40 mg tablet,delayed release (DR/EC) 40 mg PO BID Qty: 60 2RF dicyclomine 20 mg tablet 20 mg PO QID PRN (Reason: abdominal pain/cramping) Qty: 60 0RF tramadol 50 mg tablet 50 mg PO Q6H PRN (Reason: pain) 30 Days Qty: 60 1RF Probiotic Acidophilus 1.5 mg (250 million cell) Capsule 2,000 mmu cells PO BID 0RF Discharge Orders: Discharge ED (Routine); Ordered 07/18/21 Ordered By: Vidal Flynn Referrals: Pravin Rogel MD [Primary Care Provider] - Discharge Diet: Usual diet Discharge Activity: Increase activity as tolerated Activity Restrictions/Additional Instructions: Home and rest. Drink plenty of water. Follow-up with primary care in 1 week for recheck. Return to ER for worsening symptoms such as fever greater than 100.4, inability to hold fluids down, or new concerns. Stand Alone Forms: Work/School Release Sign Out Sign Out Data: Patient Sign Out occurred on 07/18/21 at 17:07. Patient's care was discussed, and care was transferred from to Vidal Flynn. 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 for Matt Fwd Exam Comprehensive
[2021-07-18 12:33] LABS: Add Urine Microscopic? NO; Charge for UA Resulting for Rev
[2021-07-18 12:34] LABS: Basophils % 0.5 %; Eosinophils # 0.1 10^3/uL (0.0-0.8); Eosinophils % 1.4 %; Hematocrit 42.3 % (42.0-52.0); Hemoglobin 14.4 g/dL (11.7-16.6); Lymphocytes # 1.8 10^3/uL (0.8-4.8); Lymphocytes % 30.4 %; Mean Corpuscular Hemoglobin 31.1 pg (28.0-34.0); Mean Corpuscular Volume 91.4 fl (80-94); Mean Platelet Volume 11.4 fL (7.4-10.4); Monocytes # 0.3 10^3/uL (0.2-0.9); Monocytes % 5.8 %; Neutrophils # 3.61 10^3/uL (1.8-7.7); Neutrophils % 61.7 %; Nucleated Red Blood Cells % 0 %; Platelet Count 175 10^3/cmm (130-400); Red Blood Count 4.63 10^6/uL (4.1-5.3); Red Cell Distribution Width 12.2 % (12.1-15.1); White Blood Count 5.9 10^3/uL (4.0-10.0)
[2021-07-18 12:39] LABS: Bilirubin Urine Neg (Negative); Blood Urine Neg (Negative); Glucose Urine UA Norm (Normal); Ketones Urine Negative (Negative); Leukocyte Esterase Urine Negative (Negative); Nitrate Urine Negative (Negative); Protein Urine Neg (Negative); Specific Gravity, Urine 1.025 (1.005-1.030); Urine Appearance Clear (CLEAR); Urine Color Yellow (Yellow); Urobilinogen Urine Norm (Negative); pH Urine 5 (5-7)
[2021-07-18] MEDS: sodium chloride 0.9% 1,000 ML 999 ML IV (12:41)
[2021-07-18] MEDS: morphine 4 mg/mL SDV 1 mL IVP ×2 (12:41→14:26)
[2021-07-18 13:40] LABS: Alanine Aminotransferase 12 U/L (0-41); Albumin Level 4.1 g/dL (3.5-5.2); Alkaline Phosphatase 72 IU/L (40-130); Anion Gap 11.6 (5-19); Aspartate Amino Transferase 16 U/L (0-40); Blood Urea Nitrogen 19 mg/dL (6-20); Calcium 8.2 mg/dL (8.5-10.5); Carbon Dioxide 24 mmol/L (22-29); Chloride 106 mmol/L (98-107); Creatinine Clr Calc Pharmacy 122.7117; Globulin 1.8 g/dL (1.3-4.6); Glomerular Filtration Rate 95.5 mL/min (90-130); Glucose 85 mg/dL (65-115); Lipase 33 U/L (13-60); Osmolality Calculated 288 mOsm/kg (285-295); Potassium 3.6 mmol/L (3.5-5.1); Sodium 138 mmol/L (136-145); Total Bilirubin 0.2 mg/dL (0.15-1.2); Total Protein 5.9 g/dL (6.6-8.7)
--- NOTE | 2021-07-18 14:18 | CT_ITS ---
WS: [id number] CT ABDOMEN AND PELVIS NONCONTRAST HISTORY: abdominal pain and diarrhea TECHNIQUE: Imaging performed through the abdomen and pelvis. Coronal and sagittal reformats are submi tted. All CT scans at [facility] use at least one of these dose optimization techniques: auto mated exposure control; mA and/or kV adjustment per patient size (includes targeted exams where dose is matched to clinical indication); or iterative reconstruction. DLP: 1379.97 mGy.cm COMPARISON: 11/26/2020, 06/17/2021 and 04/16/2021 Lower thorax: Lung bases are clear. Visualized heart is normal. No hiatal hernia. Liver: Normal size liver. No mass or bile duct dilatation. Gallbladder: Normal gallbladder. Pancreas: Normal size and attenuation. Normal pancreatic duct. No pancreatitis or mass. Spleen: Normal. Adrenal glands: Normal. No mass. Right kidney: Normal size kidney with no mass or hydronephrosis. Left kidney: Normal size kidney with no mass or hydronephrosis. Aorta: Normal abdominal aorta, no aneurysm or atherosclerosis. Small benign RIGHT lower quadrant lymph nodes measure up to 7 mm. No ascites or free air. GI tract: Normal appendix. The appendix does contain a small amount of calcification. No inflammation . There is some very mild fluid distention of the small bowel loops. No obstructive pattern. Abdominal wall: Negative. No hernia. Pelvis: Normal. Osseous structures: Unremarkable. CT/CT abdomen pelvis wo con [id number] IMPRESSION: 1. No acute abdominal or pelvic abnormalities are identified. No ascites. No a denopathy. 2. Normal appendix. 3. Patient has had several CTs in the recent months. Patient may benefit from a CT with good IV and oral contrast as an outpatient or colonoscopy as the symp toms seem to persist. Mild wall thickening or early changes of inflammatory bow el disease or Crohn's may not be visible on this unenhanced CT.
[2021-07-18 15:00] VITALS: BP 108/71; PULSE 55; RESP 16; O2SAT 100
[2021-07-18 16:05] VITALS: BP 124/86; PULSE 55; RESP 15; O2SAT 100
[2021-07-18 16:17] VITALS: BP 124/86; PULSE 47; RESP 15; O2SAT 99
[2021-07-18] MEDS: HYDROcodone-acetaminophen 5-325 mg Tablet 1 TAB PO (18:25)
[2021-07-18] MEDS: metroNIDAZOLE 500 MG Tablet PO (18:25)
[2021-07-18 18:37] VITALS: BP 131/78; PULSE 46; RESP 16; O2SAT 100
== END 2021-07-18 18:41 | disposition home or self-care (01) ==
PROVIDERS: Physician Assistant; Emergency Provider Nurse Practitioner Family; PCP Family Medicine Adult Medicine
DX: A04.72 Enterocolitis due to Clostridium difficile, not specified as recurrent (principal)
CPT/HCPCS: 36415; 74176; 80053; 81003; 82274; 83630; 83690; 85025; 87493; 87506; 96374; 96376; 99284; J2270; J7030

== ENCOUNTER 2021-07-26 06:26 | Day surgery (SDC) | payer OTHER, SELFPAY ==
[2021-07-26] MEDS: sodium chloride 0.9% 1,000 ML 30 ML IV (07:01)
--- NOTE | 2021-07-26 07:18 | P.ANESASSM_ITS ---
Pre-Anesthetic Assessment Height/Weight: Height 1.78 m Weight 83.915 kg Preop Diagnosis: Black tarry stool Operation Date: 07/26/21 07:45 Proposed Procedures p EGD 33955/ black tarry stools K92.1(Not Applicable) - Trenton Enrique MD Familial anesthetic complications: None Was Beta Anne taken within 24 hours: N/A Was Clonidine taken within 24 hours: N/A Last intake: Intake Last Liquid Date 07/25/21 Last Liquid Time 20:30 Last Solid Date 07/25/21 Last Solid Time 20:30 Social Tobacco and No alcohol Exam alert, oriented x 3 and regular rate & rhythm diminished breath sounds b/l Airway Submandibular: within normal limits Cervical ROM: within normal limits Mallampati: Class I Dentition: chipped Comments: Comments: Poor dentition. Missing multiple teeth. Chipped teeth. None loose per patient. Pulmonary Hx tracheostomy after infection in the floor of mouth requiring senior care antibiotics and drain placement. CV/HEM None reported METS > 4 GI Gastroesophageal Reflux Disease Melena Hematochezia Hx of C. diff infection Metabolic None reported Musc/skel None reported Neuropsych None reported Anesthetic Plan ASA status: 3 (35 year old male with hx of committed smoking, prior tracheostomy, chronic nausea, diarrhea, and recurrent GI bleed) Anesthesia: Anesthesia Evaluation and MAC Other: I discussed with the patient risks, goals, and benefits of MAC and general anesthesia. We discussed spectrum of MAC anesthesia including conversion to general as well as possibility of recall of intraoperative stimuli including discomfort/pain. Patient agrees to proceed with MAC. Risk of > 500 ml blood loss (7ml/kg in children): No Medications/Allergies Home Medications Medication Instructions Recorded Confirmed Last Taken Type Lactobacillus acidophilus 1.5 mg 2,000 mmu cells PO BID 06/11/21 07/25/21 07/25/21 History (250 million cell) capsule (Probiotic Acidophilus) pantoprazole 40 mg tablet,delayed 40 mg PO BID #60 tab 06/26/21 07/25/21 07/25/21 Rx release tramadol 50 mg tablet 50 mg PO Q6H PRN 30 Days #60 tab 07/03/21 07/25/21 07/25/21 Rx hydrocodone 5 mg-acetaminophen 325 1 tab PO Q6H PRN #7 tab 07/18/21 07/25/21 07/24/21 Rx mg tablet metronidazole 500 mg tablet 500 mg PO Q8H 14 Days #42 tab 07/18/21 07/25/21 07/25/21 Rx calcium polycarbophil 625 mg 1,250 mg PO BID #120 tab 07/24/21 07/25/21 07/25/21 Rx tablet (FiberCon) dicyclomine 20 mg tablet 20 mg PO TID PRN #90 tab 07/24/21 07/25/21 07/25/21 Rx promethazine 25 mg tablet 25 mg PO Q6H PRN #20 tab 07/24/21 07/25/21 07/25/21 Rx Allergies Allergy/AdvReac Type Severity Reaction Status Date / Time No Known Allergies Allergy Verified 07/25/21 15:27 Current Medications Generic Name Dose Route Start Last Admin Trade Name Freq PRN Reason Stop Dose Admin Sodium Chloride 1,000 mls @ 30 mls/hr 07/26/21 06:45 07/26/21 07:01 Sodium Chloride 0.9% IV 30 mls/hr .Q24H HAROLDO Administration PFSH Anesthesia Medical History Black tarry stools BRBPR (bright red blood per rectum) Chronic cardiac arrhythmia Chronic diarrhea Chronic generalized abdominal pain Chronic nausea Non-cardiac chest pain Smoker unmotivated to quit Surgical History Hx of tonsillectomy Social History Smoking and tobacco status: current every day smoker Alcohol intake: never Marital status: Number of children: 4 Number of grandchildren: 0 Current occupational status: employed Data Anesthesia Cardiac Studies: Echocardiogram 07/09/21
--- NOTE | 2021-07-26 07:43 | W.PM.OPSUD ---
Surgery/Procedure H&P Update DATE OF PROCEDURE: July 26, 2021 DATE H&P PERFORMED: 07/25/21 H&P UPDATE INFORMATION: I have reviewed H&P completed within last 30 days, I have examined patient prior to procedure and No changes to prior documentation PREOP DIAGNOSIS: Black tarry stool PRIMARY INDICATION FOR PROCEDURE: The same PLANNED PROCEDURE: Operation Date: 07/26/21 07:45 Proposed Procedures p EGD 93469/ black tarry stools K92.1(Not Applicable) - Trenton Enrique MD
[2021-07-26 08:23] VITALS: BP 106/65; PULSE 62; RESP 16; TEMP 36.1; O2SAT 96
--- NOTE | 2021-07-26 08:24 | ANE.PACU2 ---
Documented by User: Mihir Siegel CRNA 07/26/21 08:24 Inpatient post-anesthesia follow up: Airway intact: Yes Vital signs: Temperature 97.0 F Pulse Rate 62 Respiratory Rate 16 Blood Pressure 106/65 Pulse Oximetry 96 Oxygen Delivery Me thod Room Air Oxygen Flow Rate Fraction of Inspir ed Oxygen Hydration adequate: Yes Nausea and vomiting: No Pain level: 1 Mental status: Baseline
--- NOTE | 2021-07-26 08:55 | PC.NURSE ---
Patient complaining of severe pain in the left upper abdomen. Bowel sounds present. Abdomen soft. Patient passing gas and belching. Dr. Enrique notified and he reported that the patient has chronic pain which had already stated that was the patients chronic pain. Dr. Enrique states that everything else was normal patient was good to go. Patient educated to call Dr. Enrique office or go to ER if pain persist or got worse.
[2021-07-26 09:00] VITALS: BP 124/92; PULSE 63; RESP 18; O2SAT 99
--- NOTE | 2021-07-26 09:15 | PC.NURSE ---
Pt c/o left abdominal pain 12/02, pt and S/O both state this pain is normal for him and there are no alleviating factors when it occurs.
== END 2021-07-26 09:20 | disposition home or self-care (01) ==
PROVIDERS: PCP Family Medicine Adult Medicine; Visit Provider Surgery
PROC: 0DJ08ZZ Inspection of Upper Intestinal Tract, Via Natural or Artificial Opening Endoscopic (ICD-10-PCS; CPT 43235; principal; 2021-07-26 07:45)
DX: K92.1 Melena (principal); D13.1 Benign neoplasm of stomach; K21.00 Gastro-esophageal reflux disease with esophagitis, without bleeding; K29.70 Gastritis, unspecified, without bleeding
CPT/HCPCS: 43239; 88305; 88342; J2704; J7030

== ENCOUNTER 2021-07-26 09:33 | Emergency (ER) | payer OTHER, SELFPAY ==
[2021-07-26 09:53] VITALS: BP 134/85; PULSE 50; RESP 16; TEMP 36.3; O2SAT 100; BMI 25.7
--- NOTE | 2021-07-26 10:00 | ED_ITS ---
HPI - Abdominal Pain General: Chief Complaint: Abdominal Pain Stated Complaint: pain all over post GI procedure Time Seen by Provider: 07/26/21 09:39 History of Present Illness: Patient is a 35-year-old male comes to the ED with abdominal pain. Patient had a upper endoscopy performed earlier this morning. After his procedure he has been having left upper quadrant abdominal pain that has continued to increase with intensity. He was discharged home from outpatient surgery and he was still having severe abdominal pain. He rates it a 10 out of 10. Associated Symptoms: Denies chills, constipation, diarrhea, dysuria, fever(s), hematochezia, hematuria, nausea and vomiting Review of Systems Const: Denies: fever(s), chills or fatigue Eyes: Denies: change in vision or eye discomfort ENMT: Denies: throat pain, odynophagia, nasal discharge or nasal congestion Card: Denies: chest pain, palpitations, edema, swelling of feet/ankles, dyspnea on exertion or orthopnea Resp: Denies: dyspnea, productive cough or non-productive cough GI: Reports: abdominal pain; Denies: nausea, vomiting, diarrhea, constipation or hematochezia : Denies: flank pain, difficulty urinating, dysuria or hematuria Musc: Denies: neck pain, back pain or extremity swelling Skin/Breast: Denies: rash or new lesions Neuro: Denies: headache(s), numbness in extremities or weakness in extremities PFSH ED PFSH: Medical History Black tarry stools BRBPR (bright red blood per rectum) Chronic cardiac arrhythmia Chronic diarrhea Chronic generalized abdominal pain Chronic nausea Non-cardiac chest pain Smoker unmotivated to quit Surgical History Hx of tonsillectomy Social History Smoking and tobacco status: current every day smoker Alcohol intake: never Marital status: Number of children: 4 Number of grandchildren: 0 Current occupational status: employed Physical Exam Const: COMMON NORMALS: no acute distress, patient oriented x3 and alert GENERAL APPEARANCE: cooperative and comfortable HENMT: COMMON NORMALS: normocephalic HEAD & SCALP: normocephalic MOUTH: Normal oral and palatal mucosa present THROAT: posterior oropharynx normal and uvula midline Neck/C-Spine: COMMON NORMALS: supple GENERAL: Yes normal visual inspection Resp: COMMON NORMALS: normal respiratory effort, No retractions, No use of accessory muscles and clear to auscultation bilaterally AUSCULTATION: clear to auscultation bilaterally Cardio: COMMON NORMALS: regular rate, regular rhythm, S1 normal heart sound present, S2 normal heart sound present, No gallops present (Cardio), No clicks present (Cardio), No murmurs present (Cardio) and Peripheral pulses 2+ throughout RATE: regular rate RHYTHM: regular rhythm HEART SOUNDS: S1 normal heart sound present and S2 normal heart sound present PERIPHERAL PULSES: Peripheral pulses 2+ throughout GI: COMMON NORMALS: Normal to inspection, nondistended, normoactive bowel s ounds present, Soft to palpation and no masses PALPATION: Yes Soft to pal pation and Yes Tenderness to palpation present (GI) Details: LUQ : COMMON NORMALS: Yes no CVA tenderness BLADDER/KIDNEY EXAM: Yes no CVA tenderness Back/Pelvis: COMMON NORMALS: no CVA tenderness Extremity: COMMON NORMALS: normal to inspection and no pedal edema Neuro: COMMON NORMALS: patient oriented x3 SENSORIUM/ORIENTATION: Yes alert GAIT: Yes Normal gait present Skin: GENERAL SKIN EXAM: dry skin Course Reevaluation(s): Reevaluation #1: I contacted Dr. Enrique the general surgeon who performed upper GI endoscopy earlier this morning. He told me he took 1 biopsy and left clip at biopsy site. Procedure went well. I told him about patient's pain and he thinks is likely due to some postprocedural gas. I told him labs were normal. He recommended doing acute abdomen series and contacting him after that. After acute abdomen series was performed I talked to him about the results and he felt patient was cleared for discharge home and told me to send him home with a prescription for some stool softeners. Time: 12:00 Vital Signs: Vital signs: Vital Signs Temperature 97.3 F L 07/26/21 09:53 Pulse Rate 44 L 07/26/21 12:45 Respiratory Rate 16 07/26/21 12:45 Blood Pressure 125/92 07/26/21 12:45 Pulse Oximetry 99 07/26/21 12:45 MDM - Abdominal Pain Medical Decision Making Patient is a 35-year-old male comes to the ED with left upper quadrant abdominal pain. Patient just had upper GI scope done this morning and is having some left upper quadrant pain after procedure. Vitals are stable. Patient has soft abdomen that is tender in the left upper quadrant. I contacted Dr. Enrique the general surgeon who performed upper GI endoscopy earlier this morning. He told me he took 1 biopsy and left clip at biopsy site. Procedure went well. I told him about patient's pain and he thinks is likely due to some postprocedural gas. I told him labs were normal. He recommended doing acute abdomen series and contacting him after that. After acute abdomen series was performed I talked to him about the results and he felt patient was cleared for discharge home and told me to send him home with a prescription for some stool softeners. Return ED precautions given. Patient understood and agreed with plan. Lab Data I reviewed the patient's lab results. : 07/26/21 10:05 07/26/21 10:05 Labs/Radiology: Radiology Impressions Chest/Abdomen X-ray 07/26/21 11:12 IMPRESSION: 1. Gas distended small bowel. Possible ileus. Obstruction not excluded. 2. Large volume of stool throughout the colon, greatest in the cecum. Correlate with clinical findings of constipation. 3. Normal chest. Laboratory Results WBC 6.2 10^3/uL (4.0-10.0) 07/26/21 10:05 RBC 5.05 10^6/uL (4.1-5.3) 07/26/21 10:05 Hgb 15.7 g/dL (11.7-16.6) 07/26/21 10:05 Hct 44.6 % (42.0-52.0) 07/26/21 10:05 MCV 88.3 fl (80-94) 07/26/21 10:05 MCH 31.1 pg (28.0-34.0) 07/26/21 10:05 MCHC 35.2 g/dL (30.0-36.0) 07/26/21 10:05 RDW 12.1 % (12.1-15.1) 07/26/21 10:05 Plt Count 174 10^3/cmm (130-400) 07/26/21 10:05 MPV 11.4 fL (7.4-10.4) H 07/26/21 10:05 Neut % (Auto) 57.7 % 07/26/21 10:05 Lymph % (Auto) 33.5 % 07/26/21 10:05 [place] % (Auto) 6.6 % 07/26/21 10:05 Eos % (Auto) 1.5 % 07/26/21 10:05 Baso % (Auto) 0.5 % 07/26/21 10:05 Neut # (Auto) 3.56 10^3/uL (1.8-7.7) 07/26/21 10:05 Lymph # (Auto) 2.1 10^3/uL (0.8-4.8) 07/26/21 10:05 [place] # (Auto) 0.4 10^3/uL (0.2-0.9) 07/26/21 10:05 Eos # (Auto) 0.1 10^3/uL (0.0-0.8) 07/26/21 10:05 Baso # (Auto) 0.0 10^3/uL (0.0-0.1) 07/26/21 10:05 Nucleated RBC % (auto) 0 % 07/26/21 10:05 Nucleated RBCs # 0.0 /100WBC 07/26/21 10:05 Sodium 135 mmol/L (136-145) L 07/26/21 10:05 Potassium 4.5 mmol/L (3.5-5.1) 07/26/21 10:05 Chloride 104 mmol/L (98-107) 07/26/21 10:05 Carbon Dioxide 21 mmol/L (22-29) L 07/26/21 10:05 Anion Gap 14.5 (5-19) 07/26/21 10:05 BUN 19 mg/dL (6-20) 07/26/21 10:05 Creatinine 0.9 mg/dL (0.7-1.2) 07/26/21 10:05 GFR Calculation 95.5 mL/min (90-130) 07/26/21 10:05 Glucose 93 mg/dL (65-115) 07/26/21 10:05 Calculated Osmolality 282 mOsm/kg (285-295) L 07/26/21 10:05 Calcium 8.9 mg/dL (8.5-10.5) 07/26/21 10:05 Total Bilirubin 0.3 mg/dL (0.15-1.2) 07/26/21 10:05 AST 23 U/L (0-40) 07/26/21 10:05 ALT 21 U/L (0-41) 07/26/21 10:05 Alkaline Phosphatase 76 IU/L (40-130) 07/26/21 10:05 Total Protein 6.5 g/dL (6.6-8.7) L 07/26/21 10:05 Albumin 4.6 g/dL (3.5-5.2) 07/26/21 10:05 Globulin 1.9 g/dL (1.3-4.6) 07/26/21 10:05 Lipase 43 U/L (13-60) 07/26/21 10:05 Discharge Plan Discharge Patient Disposition: Home Clinical Impression: Abdominal pain Qualifiers: Abdominal location: left upper quadrant Qualified Code(s): R10.12 - Left upper quadrant pain Condition: Stable Prescriptions: New Colace 100 mg capsule 100 mg PO BID 3 Days Qty: 20 0RF Rx Instructions: Take medication daily for the next 3 days then as needed for any constipation. No Action dicyclomine 20 mg tablet 20 mg PO TID PRN (Reason: abdominal discomfort) Qty: 90 2RF promethazine 25 mg tablet 25 mg PO Q6H PRN (Reason: nausea and vomiting) Qty: 20 0RF calcium polycarbophil [FiberCon] 625 mg tablet 1,250 mg PO BID Qty: 120 2RF pantoprazole 40 mg tablet,delayed release (DR/EC) 40 mg PO BID Qty: 60 2RF tramadol 50 mg tablet 50 mg PO Q6H PRN (Reason: pain) 30 Days Qty: 60 1RF Probiotic Acidophilus 1.5 mg (250 million cell) Capsule 2,000 mmu cells PO BID 0RF metronidazole 500 mg tablet 500 mg PO Q8H 14 Days Qty: 42 0RF hydrocodone-acetaminophen 5-325 mg tablet 1 tab PO Q6H PRN (Reason: pain) Qty: 7 0RF Discharge Orders: Discharge ED (Routine); Ordered 07/26/21 Ordered By: Nick Wilkes Referrals: Pravin Rogel MD [Primary Care Provider] - Discharge Diet: Regular Discharge Activity: Increase activity as tolerated Patient Instructions: Abdominal Pain (ED) Activity Restrictions/Additional Instructions: Follow-up with medical provider as directed in the next 5 to 7 days reevaluation. You can also call Dr. Enrique office in the next couple days as needed with any concerns. Take medications as prescribed. Return to the ER or your medical provider if condition worsens. Please read and understand discharge instructions. Thank you for choosing [facility] for your healthcare needs today. Please realize this is an emergency room and that we are providing you with a medical screening exam and this may not be complete and all inclusive of all the testing and or work up that you may need to determine your ailment or severity of your illness. It is very important that you follow up as instructed or that you return to the Emergency Department should you have concerns or if your condition changes or worsens in any way. Coding Level of Care Code ED Home Health Lvn for Matt Hilton Exam Comprehensive
[2021-07-26 10:13] LABS: Basophils % 0.5 %; Eosinophils # 0.1 10^3/uL (0.0-0.8); Eosinophils % 1.5 %; Hematocrit 44.6 % (42.0-52.0); Hemoglobin 15.7 g/dL (11.7-16.6); Lymphocytes # 2.1 10^3/uL (0.8-4.8); Lymphocytes % 33.5 %; Mean Corpuscular HGB Conc 35.2 g/dL (30.0-36.0); Mean Corpuscular Hemoglobin 31.1 pg (28.0-34.0); Mean Corpuscular Volume 88.3 fl (80-94); Mean Platelet Volume 11.4 fL (7.4-10.4); Monocytes # 0.4 10^3/uL (0.2-0.9); Monocytes % 6.6 %; Neutrophils # 3.56 10^3/uL (1.8-7.7); Neutrophils % 57.7 %; Nucleated Red Blood Cells % 0 %; Platelet Count 174 10^3/cmm (130-400); Red Blood Count 5.05 10^6/uL (4.1-5.3); Red Cell Distribution Width 12.1 % (12.1-15.1); White Blood Count 6.2 10^3/uL (4.0-10.0)
[2021-07-26 10:22] VITALS: RESP 20
[2021-07-26] MEDS: morphine 4 mg/mL SDV 1 mL IVP (10:22)
[2021-07-26] MEDS: ondansetron 2 mg/ML SDV 2 mL 4 MG IVP (10:22)
[2021-07-26 10:27] LABS: Alanine Aminotransferase 21 U/L (0-41); Albumin Level 4.6 g/dL (3.5-5.2); Alkaline Phosphatase 76 IU/L (40-130); Aspartate Amino Transferase 23 U/L (0-40); Blood Urea Nitrogen 19 mg/dL (6-20); Calcium 8.9 mg/dL (8.5-10.5); Carbon Dioxide 21 mmol/L (22-29); Chloride 104 mmol/L (98-107); Globulin 1.9 g/dL (1.3-4.6); Glomerular Filtration Rate 95.5 mL/min (90-130); Glucose 93 mg/dL (65-115); Lipase 43 U/L (13-60); Osmolality Calculated 282 mOsm/kg (285-295); Sodium 135 mmol/L (136-145); Total Bilirubin 0.3 mg/dL (0.15-1.2); Total Protein 6.5 g/dL (6.6-8.7)
[2021-07-26 10:28] LABS: Anion Gap 14.5 (5-19); Potassium 4.5 mmol/L (3.5-5.1)
[2021-07-26 10:59] VITALS: BP 125/87; PULSE 52; RESP 16; O2SAT 96
--- NOTE | 2021-07-26 10:59 | PC.NURSE ---
Rounded on pt. Pt sleeping respirations even and unlabored. Pt awoke and rates pain 3/10 at this time.
--- NOTE | 2021-07-26 11:12 | XRR_ITS ---
PROCEDURE INFORMATION: Exam: XR Complete Acute Abdomen Series Including Chest Exam date and time: 07/26/2021 11:21 AM Age: 35 years old Clinical indication: Abdominal pain; Localized; Left lower quadrant (llq); Prior surgery; Surgery date: Post-operative (0-2 days); Surgery type: Endoscopy done this morning-surgical clip placed; Additional info: Abdominal pain-luq, upper endoscopy done this morning-surgical clip placed at TECHNIQUE: Imaging protocol: XR complete acute abdomen series, including 2 or more views of the abdomen and a single view chest. COMPARISON: CR XR chest 1V portable [id number] 07/09/2021 11:44 AM FINDINGS: Lungs: Normal. No consolidation. Pleural spaces: Normal. No pleural effusions. No pneumothorax. Heart/Mediastinum: Normal. No cardiomegaly. Gastrointestinal tract: There is diffuse gaseous distention of small bowel. There is a large volume of stool throughout colon. The cecum is mildly dilated and stool filled. Intraperitoneal space: There is a surgical clip positioned to the right of midline in the upper abdomen. Bones/joints: Normal. No acute fracture. Soft tissues: Normal. XR/XR acute abdomen series [id number] IMPRESSION: 1. Gas distended small bowel. Possible ileus. Obstruction not excluded. 2. Large volume of stool throughout the colon, greatest in the cecum. Correlate with clinical findings of constipation. 3. Normal chest.
--- NOTE | 2021-07-26 11:39 | PC.NURSE ---
Rounded on pt. Pt resting quietly with family at bedside.
[2021-07-26 12:45] VITALS: BP 125/92; PULSE 44; RESP 16; O2SAT 99
[2021-07-26] MEDS: HYDROcodone-acetaminophen 7.5-325 mg Tablet 1 TAB PO (12:45)
== END 2021-07-26 12:47 | disposition home or self-care (01) ==
PROVIDERS: Emergency Provider Physician Assistant; PCP Family Medicine Adult Medicine
DX: R10.12 Left upper quadrant pain (principal); Z98.890 Other specified postprocedural states
CPT/HCPCS: 74022; 80053; 83690; 85025; 96374; 96375; 99284; J2270; J2405

== ENCOUNTER 2021-07-30 17:20 | Emergency (ER) | payer OTHER, MEDICARE, SELFPAY ==
[2021-07-30 17:55] VITALS: PULSE 58; RESP 16; TEMP 36.8; O2SAT 99; BMI 25.7
[2021-07-30 17:58] VITALS: BP 130/75
== END 2021-08-01 19:45 | disposition left against medical advice (07) ==
PROVIDERS: Emergency Provider Family Medicine; PCP Family Medicine Adult Medicine
DX: Z53.21 Procedure and treatment not carried out due to patient leaving prior to being seen by health care provider (principal); R10.9 Unspecified abdominal pain; K62.5 Hemorrhage of anus and rectum

== ENCOUNTER 2021-08-02 06:41 | Outpatient (CLI) | payer OTHER, SELFPAY ==
--- NOTE | 2021-08-02 08:00 | NM_ITS ---
WS: [id number] NUCLEAR MEDICINE HIDA SCAN CLINICAL INFORMATION: R10.9 - Unspecified abdominal pain TECHNIQUE: Following intravenous administration of 7.9 mCi of technetium 99m mebrofenin, images of th e abdomen were obtained over the course of 60 minutes. Next, gallbladder ejection fraction was determ ined by obtaining preprandial and one-hour postprandial images of the gallbladder following oral nicole stion of Ensure. COMPARISON: None. FINDINGS: Normal hepatic uptake at 5 minutes. Normal common bile duct and small bowel activity. Normal hepatic excretion. Gallbladder is visualized by 40 minutes. No evidence of acute cholecystitis. Gallbladder ejection fraction 50% within normal limits. No evidence of chronic cholecystitis. NM/NM hepatobiliary w phar* [id number] IMPRESSION: 1. No evidence of acute or chronic cholecystitis. 2. Gallbladder ejection fraction 50% within normal limits.
== END 2021-08-02 06:42 | disposition home or self-care (01) ==
LOC: RAD 06:42
PROVIDERS: PCP Family Medicine Adult Medicine; Visit Provider Surgery
DX: R10.9 Unspecified abdominal pain (principal)
CPT/HCPCS: 78227; A9537

== ENCOUNTER 2021-08-03 23:23 | Emergency (ER) | payer OTHER, SELFPAY ==
[2021-08-03 23:32] VITALS: BP 137/85; PULSE 72; RESP 18; TEMP 36.8; O2SAT 98; BMI 25.8
--- NOTE | 2021-08-03 23:36 | XRR_ITS ---
PROCEDURE INFORMATION: Exam: XR Right Elbow Exam date and time: 08/03/2021 11:53 PM Age: 35 years old Clinical indication: Injury or trauma; Fall; Wound; Elbow; Right TECHNIQUE: Imaging protocol: XR Right elbow. Views: 3 or more views. COMPARISON: No relevant prior studies available. FINDINGS: Bones/joints: See Soft tissues finding. Soft tissues: Several probable calcifications seen in the elbow soft tissues dorsally. Other findings: Suspected laceration seen over the posterior elbow. XR/XR elbow RT min 3V* [id number] IMPRESSION: 1. Suspected laceration seen over the posterior elbow. 2. Several probable calcifications seen in the elbow soft tissues dorsally.
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
[2021-08-04 00:14] LABS: Basophils % 0.4 %; Eosinophils # 0.1 10^3/uL (0.0-0.8); Eosinophils % 1.3 %; Hematocrit 42.4 % (42.0-52.0); Hemoglobin 14.8 g/dL (11.7-16.6); Lymphocytes # 2.3 10^3/uL (0.8-4.8); Lymphocytes % 22.8 %; Mean Corpuscular HGB Conc 34.9 g/dL (30.0-36.0); Mean Corpuscular Hemoglobin 30.9 pg (28.0-34.0); Mean Corpuscular Volume 88.5 fl (80-94); Mean Platelet Volume 11.3 fL (7.4-10.4); Monocytes # 0.9 10^3/uL (0.2-0.9); Monocytes % 8.4 %; Neutrophils # 6.81 10^3/uL (1.8-7.7); Neutrophils % 66.8 %; Nucleated Red Blood Cells % 0 %; Platelet Count 169 10^3/cmm (130-400); Red Blood Count 4.79 10^6/uL (4.1-5.3); Red Cell Distribution Width 11.9 % (12.1-15.1); White Blood Count 10.2 10^3/uL (4.0-10.0)
[2021-08-04 00:20] VITALS: RESP 17
[2021-08-04] MEDS: morphine 4 mg/mL SDV 1 mL IVP (00:20)
[2021-08-04] MEDS: ondansetron 2 mg/ML SDV 2 mL 4 MG IVP (00:20)
[2021-08-04] MEDS: vancomycin 1,000 MG in sodium chloride 0.9% 250 ML 250 MG IV (00:20)
[2021-08-04 01:37] VITALS: BP 140/81
--- NOTE | 2021-08-05 15:48 | DCPLANNER ---
Addendum entered by Erica Mendez 09/13/21 16:46: bilingual case manager was told by Wound Care that patient refused appointment. Original Note: bilingual case manager had message to schedule a follow up appointment for patient with wound care. bilingual case manager sent patients information to the front office staff at Wound Care. Patients information will be printed and reviewed. Clinic will call patient with appointment information.
== END 2021-08-04 01:39 | disposition home or self-care (01) ==
PROVIDERS: Emergency Provider Emergency Medicine; PCP Family Medicine Adult Medicine
DX: L03.113 Cellulitis of right upper limb (principal); S50.311A Abrasion of right elbow, initial encounter; V89.1XXA Person injured in unspecified nonmotor-vehicle accident, nontraffic, initial encounter; Y93.55 Activity, bike riding
CPT/HCPCS: 73080; 85025; 87040; 96365; 96375; 99284; J2270; J2405; J3370; J7050

== ENCOUNTER 2021-08-16 11:46 | Outpatient (CLI) | payer OTHER, SELFPAY ==
[2021-08-16 12:34] VITALS: BMI 25.2
--- NOTE | 2021-08-16 12:40 | ECG_ITS ---
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 Interpretive Statements NAME OF STUDY: TREADMILL STRESS TEST INDICATION: [Shortness of Breath; Chest Pain] EXERCISE DATA: The patient was exercised by Salomon protocol. Baseline heart rate was 90 beats per minute. Baseline blood pressure was 106/70 millimeters of mercury. Target heart rate was 156 beats per minute. Maximum heart rate achieved was 179,which was 114% of the target heart rate. Maximum blood pressure was 168/58 millimeters of mercury. Total exercise time was 12 minutes. Maximum METs achieved was 13.5, maximum VO2 was 47.3. The reason for ending the test was completion of the protocol. The patient did not complain of symptoms. ELECTROCARDIOGRAM: BASELINE: Showed sinus rhythm, normal axis, no significant ST-T changes at the baseline noted. [] EXERCISE: At the peak exercise level, [] No significant ST-T changes suggestive of ischemia noted. [] RECOVERY: During the recovery period, heart rate dropped appropriately. No significant ST-T changes in the recovery suggestive of ischemia noted. [] CONCLUSION: 1. Exercise capacity is excellent. 2. Heart rate response was appropriate. 3. Blood pressure response was appropriate. 4. Symptoms not suggestive of ischemia. 5. Stress test was normal and was negative for ischemia. Electronically Signed On 08-18-2021 14:31:53 CDT by Ed Barth M.D. [email or web address]
[2021-08-16 13:20] VITALS: BP 106/86; PULSE 82
== END 2021-08-16 11:47 | disposition home or self-care (01) ==
LOC: CDL 11:48
PROVIDERS: PCP Family Medicine Adult Medicine; Visit Provider Internal Medicine
DX: R06.02 Shortness of breath (principal); R07.9 Chest pain, unspecified
CPT/HCPCS: 93017

== ENCOUNTER 2021-10-15 16:08 | Outpatient (CLI) | payer OTHER, SELFPAY | END 2021-10-15 16:09 | disposition home or self-care (01) | LOC: LAB 16:11 | PROVIDERS: PCP Family Medicine Adult Medicine; Visit Provider Internal Medicine | DX: K52.9 Noninfective gastroenteritis and colitis, unspecified (principal); G89.29 Other chronic pain; R10.84 Generalized abdominal pain | CPT/HCPCS: 87177; 87209; 87493; 87506 ==